=== PATIENT | female | born 1950 | race Caucasian/White ===

== ENCOUNTER 2018-08-08 11:44 | Inpatient (IN) ==
--- NOTE | 2018-08-08 11:51 | Emergency Department Note ---
Disposition Clinical Impression: C. difficile colitis Disposition: Admitted As Inpatient Condition: Fair Time of Disposition: 13:34 Abdominal Pain HPI - General Chief Complaint: ED Abdominal Pain Stated Complaint: abdominal pain Time Seen by Provider: 08/08/18 11:50 Source: patient Mode of arrival: ambulatory Limitations: no limitations Nursing Notes Reviewed: Yes Vital Signs Reviewed: Yes - History of Present Illness HPI Narrative: Patient is a 68-year-old female who is presenting for continued abdominal pain and diarrhea. Patient was diagnosed with C. 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 Once diagnosed, her xifaxan was increased. She has had no relief of her symptoms. Per family, she has been having diarrhea for the past 6 days, multiple episodes daily, described to be her liquid at least 10-15 episodes per day. She denies any nausea, vomiting, fevers or chills. She has been unable to eat or drink secondary to the diarrhea and anorexia. Per family, she seems slightly fatigued but otherwise is at normal mental status baseline. Patient denies any focal weakness, numbness or tingling. No recent fall or trauma. - Related Data Home Medications Medication Instructions Recorded Confirmed Cevimeline HCl [Evoxac] 30 mg PO TID 01/02/15 08/08/18 Doxepin HCl 30 mg PO HS 01/02/15 08/08/18 Furosemide [Lasix] 20 mg PO DAILY 01/02/15 08/08/18 Multivit-Min/FA/Lycopen/Lutein 1 tab PO DAILY 01/02/15 01/02/15 [Centrum Silver Tablet] Sildenafil Citrate [Revatio] 20 mg PO 3-4XD PRN 01/02/15 08/08/18 Aspirin [Lo-Dose Aspirin EC] 81 mg PO 1200 08/08/18 08/08/18 Atorvastatin [Lipitor] 40 mg PO 1200 08/08/18 08/08/18 Calcium Carbonate/Vitamin D3 1 tab PO BID 08/08/18 08/08/18 [Calcium 500 mg-Vit D3 600 Unit] Ergocalciferol (VITAMIN D2) 50,000 units PO MO 08/08/18 08/08/18 [Vitamin D2] Ferrous Sulfate 325 mg PO 1200 08/08/18 08/08/18 Lactulose [Enulose] 10 gm PO DAILY MDD 40GM 08/08/18 08/08/18 Metoprolol Succinate [Toprol Xl] 50 mg PO BID 08/08/18 08/08/18 Midodrine [ProAmatine] 5 mg PO TID 08/08/18 08/08/18 Pantoprazole Sodium [Protonix] 40 mg PO QPM 08/08/18 08/08/18 Rifaximin [Xifaxan] 550 mg PO BID 08/08/18 08/08/18 Spironolactone [Aldactone] 25 mg PO 1200 08/08/18 08/08/18 Tramadol HCl [Ultram] 50 mg PO Q8H PRN 08/08/18 08/08/18 Allergies Allergy/AdvReac Type Severity Reaction Status Date / Time codeine Allergy Mild Nausea Verified 08/08/18 16:46 All systems ED: reviewed and negative except as stated. Review of Systems: As Per HPI Constitutional: Denies: fever, chills ENT ED: Denies: congestion Cardiovascular: Denies: chest pain, palpitations, dyspnea on exertion, edema Respiratory: Denies: cough, dyspnea, wheezes Gastrointestinal: Reports: abdominal pain, diarrhea. Denies: nausea, vomiting, hematemesis, melena, hematochezia Genitourinary: Denies: urgency Musculoskeletal: Denies: back pain Integumentary: Denies: rash Neurological: Denies: headache, weakness, confusion Endocrine: Reports: fatigue Abdominal Pain PMH - Past Medical History Medical history: Reports: cirrhosis, coronary artery disease, GERD, hyperlipidemia, myocardial infarction, other Female Surgical History: Reports: angioplasty/stent, cholecystectomy, hysterectomy, other Psychiatric history: Reports: no psych history - Social History Smoking status: Never smoker Alcohol use: Reports: none Drug use: Reports: none Physical Exam - General Limitations: no limitations General appearance: alert, in no apparent distress - Head Head exam: atraumatic, normocephalic, normal inspection - Eye Eye exam: Present: normal appearance, PERRL, EOMI - ENT ENT exam: mucous membranes dry - Neck Neck exam: Present: normal inspection, full ROM, trachea midline - Chest Chest inspection: Present: normal inspection, symmetric chest wall rise - Respiratory Respiratory exam: Present: normal lung sounds bilaterally - Cardiovascular Cardiovascular exam: Present: regular rate, normal rhythm, normal heart sounds - Abdominal Exam Abdominal exam: Present: soft, tenderness (Patient with diffuse abdominal tenderness, without guarding or rebound, non-peritoneal, mild distention) - Extremities Exam Extremities exam: Present: normal inspection, full ROM. Absent: tenderness, pedal edema - Expanded Lower Extremity Exam Neurovascular/Tendon exam: Absent: motor deficit, sensory deficit, tendon def icit - Neurological Exam Neurological exam: Present: alert, oriented X3 - Psychiatric Psychiatric exam: Present: normal affect, normal mood - Skin Skin exam: Present: warm, dry, intact, normal color Course Vital Signs Temperature 96.6 F L 08/08/18 11:48 Pulse Rate 86 08/08/18 11:48 Respiratory Rate 18 08/08/18 11:48 Blood Pressure 83/60 08/08/18 11:48 O2 Sat by Pulse Oximetry 96 08/08/18 11:48 Temperature 96.6 F L 08/08/18 11:48 Pulse Rate 72 08/08/18 16:28 Respiratory Rate 17 08/08/18 16:28 Blood Pressure 88/55 08/08/18 16:28 O2 Sat by Pulse Oximetry 100 08/08/18 16:28 Oxygen Delivery Oxygen Delivery Room Air Abdominal Pain - MDM Narrative Medical decision making narrative: Patient is a 68-year-old female who is presenting with known diagnosis of Clostridium difficile despite attempts of increase in Xifaxan treatment by primary care provider. Patient has known history of crest syndrome with secondary STEWART, chronic kidney disease, hypertension, hyperlipidemia. Patient has had ongoing symptoms for the past 5-6 days with increased fatigue and dehydration. Patient is been unable to keep anything down or eat anything secondary to nausea with continued 10-15 episodes of diarrhea per day. On arrival, patient is afebrile, regular rate and rhythm, she is hypotensive but per family this is slightly lower than baseline of 90/60. Given concern for known C. difficile, blood cultures, lactic acid, CBC, BMP, hepatic, lipase, CT of the abdomen and pelvis were performed to rule out toxic megacolon or wo rsening colitis. Patient was given a total of 1 L normal saline initially, however was given a total of 2 more liters following blood pressure that remained hypotensive. She was fluid responsive. Patient remained afebrile and in no acute distress while here in the ER. CBC was reveals significant leukocytosis in the 40s, suspect this is secondary to patient's C. difficile. Patient with known chronic kidney disease, slight worsening, patient with hyponatremia, suspect this is all secondary to dehydration. Patient lactic acid is elevated, with metabolic acidosis. I did speak with the pharmacist regarding the dictation therapy, we will initiate vancomycin 125 orally. Patient is tolerating by mouth appropriately. Sutured abdomen and pelvis does show pancolitis without signs of toxic me gacolon. There was a this is appropriate management at this time. Patient is remained stable while here in the ER, she will be admitted for further evaluation and treatment. Patient and family agree with this disposition. - Medical Records Medical records reviewed: Yes I reviewed the patient's medical records. - Lab Data Lab results reviewed: Yes I reviewed the patient's lab results. Result diagrams: 08/08/18 12:29 08/08/18 12:29 Lab Results 08/08/18 08/08/18 08/08/18 Range/Units 12:29 12:29 12:29 WBC 43.0 H* (4.3-11.1) K/mcL RBC 4.22 (3.82-4.97) M/mcL Hgb 12.8 (11.5-15.4) g/dL Hct 39.4 (35.3-44.9) % MCV 93.4 (83.0-100.0) fL MCH 30.3 (28.0-33.3) pg MCHC 32.5 (31.6-35.5) g/dL RDW 15.7 H (11.5-14.5) % Plt Count 165 (140-400) K/mcL MPV 10.7 (9.4-12.4) fL Seg Neutrophils % 82.0 % Band Neutrophils % 12.0 H (0-4) % Lymphocytes % Test Not Performed Monocytes % 6.0 % Neutrophils # 40.4 H (1.6-8.9) K/mcL Lymphocytes # INTERFACE DEVELOPER Monocytes # 2.6 H (0.0-1.3) K/mcL Toxic Granulation Present A (Not Present) Dohle Bodies Present A (Not Present) Platelet Estimate Normal (Normal) Polychromasia 1+ A (Not Present) Poikilocytosis 1+ A (Not Present) Keenan Cells 1+ A (Not Present) PT 14.3 H (9.4-12.1) Seconds INR 1.3 APTT 27.7 (26.0-36.0) Seconds Sodium 122 L (136-145) mEq/L Potassium 4.4 (3.5-5.1) mEq/L Chloride 92 L (98-107) mEq/L Carbon Dioxide 15 L (23-29) mEq/L BUN 71 H (8-23) mg/dL Creatinine 2.34 H (0.60-1.20) mg/dL Est GFR ( Amer) 25 L (> 60) Est GFR (Non-Af Amer) 21 L (> 60) BUN/Creatinine Ratio 30 H (6-26) Glucose 92 (70-105) mg/dL Calculated Osmolality 274 L (280-300) Lactic Acid (0.5-2.2) mmol/L Calcium 8.2 L (8.6-10.3) mg/dL Total Bilirubin 1.3 H (0.3-1.0) mg/dL Direct Bilirubin 0.5 H (0.0-0.2) mg/dL Indirect Bilirubin 0.8 (0.0-1.2) mg/dL AST 14 (13-39) Units/L ALT 5 L (7-52) Units/L Alkaline Phosphatase 149 H (34-104) Units/L Serum Total Protein 5.6 L (6.4-8.9) g/dL Albumin 2.5 L (3.5-5.7) g/dL Globulin 3.1 (2.4-3.5) g/dL Albumin/Globulin Ratio 0.8 L (1.1-2.2) Lipase 10 L (11-82) Units/L Urine Color (Yellow) Urine Clarity (Clear) Urine pH (5.0-8.0) pH Units Ur Specific [place] (1.010-1.025) Urine Protein (Neg-Trace) mg/dL Urine Glucose (UA) (Normal) mg/dL Urine Ketones (Negative) mg/dL Urine Blood (Negative) Urine Nitrite (Negative) Urine Bilirubin (Negative) Urine Urobilinogen (Normal) mg/dL Ur Leukocyte Esterase (Negative) Urine Microscopic RBC (0-3) per hpf Urine Microscopic WBC (0-3) per hpf Ur Squamous Epith Cells (None-Few) per lpf Urine Bacteria (None-Few) per hpf Hyaline Casts (None-Few) per lpf Ur Culture Indicated? (NO) Specimen Rejected 08/08/18 08/08/18 08/08/18 Range/Units 13:38 13:44 13:51 WBC (4.3-11.1) K/mcL RBC (3.82-4.97) M/mcL Hgb (11.5-15.4) g/dL Hct (35.3-44.9) % MCV (83.0-100.0) fL MCH (28.0-33.3) pg MCHC (31.6-35.5) g/dL RDW (11.5-14.5) % Plt Count (140-400) K/mcL MPV (9.4-12.4) fL Seg Neutrophils % % Band Neutrophils % (0-4) % Lymphocytes % Monocytes % % Neutrophils # (1.6-8.9) K/mcL Lymphocytes # Monocytes # (0.0-1.3) K/mcL Toxic Granulation (Not Present) Dohle Bodies (Not Present) Platelet Estimate (Normal) Polychromasia (Not Present) Poikilocytosis (Not Present) Keenan Cells (Not Present) PT (9.4-12.1) Seconds INR APTT (26.0-36.0) Seconds Sodium (136-145) mEq/L Potassium (3.5-5.1) mEq/L Chloride (98-107) mEq/L Carbon Dioxide (23-29) mEq/L BUN (8-23) mg/dL Creatinine (0.60-1.20) mg/dL Est GFR ( Amer) (> 60) Est GFR (Non-Af Amer) (> 60) BUN/Creatinine Ratio (6-26) Glucose (70-105) mg/dL Calculated Osmolality (280-300) Lactic Acid 3.1 H (0.5-2.2) mmol/L Calcium (8.6-10.3) mg/dL Total Bilirubin (0.3-1.0) mg/dL Direct Bilirubin (0.0-0.2) mg/dL Indirect Bilirubin (0.0-1.2) mg/dL AST (13-39) Units/L ALT (7-52) Units/L Alkaline Phosphatase (34-104) Units/L Serum Total Protein (6.4-8.9) g/dL Albumin (3.5-5.7) g/dL Globulin (2.4-3.5) g/dL Albumin/Globulin Ratio (1.1-2.2) Lipase (11-82) Units/L Urine Color Dark Yellow (Yellow) Urine Clarity Clear (Clear) Urine pH 5.5 (5.0-8.0) pH Units Ur Specific [place] 1.020 (1.010-1.025) Urine Protein Negative (Neg-Trace) mg/dL Urine Glucose (UA) Normal (Normal) mg/dL Urine Ketones Negative (Negative) mg/dL Urine Blood Negative (Negative) Urine Nitrite Negative (Negative) Urine Bilirubin Small H (Negative) Urine Urobilinogen Normal (Normal) mg/dL Ur Leukocyte Esterase Trace H (Negative) Urine Microscopic RBC 0-3 (0-3) per hpf Urine Microscopic WBC 0-3 (0-3) per hpf Ur Squamous Epith Cells Many H (None-Few) per lpf Urine Bacteria None Seen (None-Few) per hpf Hyaline Casts Many H (None-Few) per lpf Ur Culture Indicated? YES A (NO) Specimen Rejected Hemolyzed - Radiology Data Radiology results reviewed: Yes I reviewed the patient's radiology results. Abdomen/Pelvis CT 08/08/18 12:03 IMPRESSION: 1. Nonspecific pancolitis 2. Cirrhosis with splenomegaly, ascites, and collateral vessels in the upper abdomen D/ / Vincent Henderson MD / Vincent Henderson MD Interpreting Provider: Vincent Henderson MD - EKG Data EKG attestation: Yes I reviewed and interpreted this EKG. EKG results narrative: EKG obtained at 1202 with ventricular rate of 87, regular rhythm, left axis deviation with left atrial enlargement, prolonged QTC at 536 which is unchanged from prior, no ST segment elevation or depression, there is diffuse T-wave inversion.
[2018-08-08] MEDS ORDERED: Ondansetron 4 MG/2 ML VIAL IVP ONE (12:02)
[2018-08-08] MEDS ORDERED: 0.9 % Sodium Chloride 1,000 ML IVC ONE ×3 (12:02→14:30)
[2018-08-08 12:45] LABS: Hemoglobin 12.8 g/dL (11.5-15.4)
[2018-08-08 12:47] LABS: Hematocrit 39.4 % (35.3-44.9); Mean Corpuscular HGB Conc 32.5 g/dL (31.6-35.5); Mean Corpuscular Hemoglobin 30.3 pg (28.0-33.3); Mean Corpuscular Volume 93.4 fL (83.0-100.0); Mean Platelet Volume 10.7 fL (9.4-12.4); Platelet Count 165 K/mcL (140-400); Red Blood Count 4.22 M/mcL (3.82-4.97); Red Cell Distribution Width 15.7 % (11.5-14.5)
[2018-08-08 13:03] LABS: INR 1.3; Prothrombin Time 14.3 Seconds (9.4-12.1)
[2018-08-08 13:06] LABS: Activated Partial Thrombo Time 27.7 Seconds (26.0-36.0)
[2018-08-08] MEDS ORDERED: MetroNIDAZOLE 500 MG/100 ML 500 MG/100 ML BAG IVPB ONE (13:10)
[2018-08-08 13:33] LABS: Monocytes # 2.6 K/mcL (0.0-1.3); Neutrophils # 40.4 K/mcL (1.6-8.9)
[2018-08-08 13:35] LABS: Dohle Bodies Present (Not Present); Poikilocytosis 1+ (Not Present); Toxic Granulation Present (Not Present)
[2018-08-08 13:36] LABS: Burr Cells 1+ (Not Present)
[2018-08-08 13:37] LABS: Platelet Estimate Normal (Normal); Polychromasia 1+ (Not Present)
[2018-08-08 13:43] LABS: Albumin 2.5 g/dL (3.5-5.7); Albumin/Globulin Ratio 0.8 (1.1-2.2); Bilirubin,Direct 0.5 mg/dL (0.0-0.2); Bilirubin,Indirect 0.8 mg/dL (0.0-1.2); Bilirubin,Total 1.3 mg/dL (0.3-1.0); Calcium 8.2 mg/dL (8.6-10.3); Globulin 3.1 g/dL (2.4-3.5); Potassium 4.4 mEq/L (3.5-5.1); Total Protein 5.6 g/dL (6.4-8.9)
--- NOTE | 2018-08-08 13:46 | Emergency Department Note ---
Disposition Clinical Impression: C. difficile colitis Disposition: Admitted As Inpatient Condition: Fair Referrals: Yonathan James Jr, MD [Primary Care Provider] - Forms: ED Satisfaction Letter, Work/School Release Time of Disposition: 13:46 General Adult HPI - General Chief complaint: ED Abdominal Pain Stated complaint: abdominal pain Time Seen by Provider: 08/08/18 11:50 Source: patient Mode of arrival: ambulatory Limitations: no limitations - History of Present Illness Pain Scale: 10 - Related Data Home Medications Medication Instructions Recorded Confirmed Aspirin Enteric Coated [Aspirin EC] 81 mg PO DAILY 01/02/15 08/08/18 Calcium Citrate/Vitamin D3 [Sm 1 each PO DAILY 01/02/15 08/08/18 Calcium Citrate-Vit D3 Tab] Cevimeline HCl [Evoxac] 30 mg PO TID 01/02/15 08/08/18 Diltiazem CD (24hr) [Cardizem CD] 240 mg PO DAILY 01/02/15 01/02/15 Doxepin HCl 30 mg PO HS 01/02/15 08/08/18 Ferrous Sulfate 325 mg PO TIDWM 01/02/15 08/08/18 Furosemide [Lasix] 20 mg PO DAILY 01/02/15 08/08/18 Lansoprazole [Prevacid] 30 mg PO BIDAC 01/02/15 01/02/15 Metoprolol XL (24 HR) Succ [Toprol 1 tab PO DAILY 01/02/15 08/08/18 XL] Multivit-Min/FA/Lycopen/Lutein 1 tab PO DAILY 01/02/15 01/02/15 [Centrum Silver Tablet] Sildenafil Citrate [Revatio] 20 mg PO 3-4XD PRN 01/02/15 08/08/18 Spironolactone [Aldactone] 50 mg PO DAILY 01/02/15 08/08/18 Sucralfate [Carafate] 1 gm PO 0730,1630 01/02/15 01/02/15 Previous Rx's Medication Instructions Recorded Acyclovir [Zovirax] 400 mg PO Q4HR #100 tablet 03/21/15 traMADol [Ultram] 50 mg PO TID #14 tablet 03/21/15 Allergies Allergy/AdvReac Type Severity Reaction Status Date / Time codeine Allergy Mild Nausea Verified 01/02/15 01:35 Constitutional: Denies: fever, chills ENT ED: Denies: congestion Cardiovascular: Denies: chest pain, palpitations, dyspnea on exertion, edema Respiratory: Denies: cough, dyspnea, wheezes Gastrointestinal: Reports: abdominal pain, diarrhea. Denies: nausea, vomiting, hematemesis, melena, hematochezia Genitourinary: Denies: urgency Musculoskeletal: Denies: back pain Integumentary: Denies: rash Neurological: Denies: headache, weakness, confusion Endocrine: Reports: fatigue Past Medical History - Past Medical History Medical history: Reports: cirrhosis, coronary artery disease, GERD, hyperlipidemia, myocardial infarction, other Surgical history: Reports: angioplasty/stent, cholecystectomy, hysterectomy, other Psychiatric history: Reports: no psych history - Social History Smoking Status: Never smoker Smokeless Tobacco Status: No Alcohol use: Reports: none Drug use: Reports: none Physical Exam - General Limitations: no limitations General appearance: alert, in no apparent distress Course - Consultations Consultation #1: discussed case with Dr. Linder and she accepts patient to her service. She woul dlike 1/2NS with 75meq HCO3 at 125 ml/hr. Time: 15:21 Vital Signs Temperature 96.6 F L 08/08/18 11:48 Pulse Rate 86 08/08/18 11:48 Respiratory Rate 18 08/08/18 11:48 Blood Pressure 83/60 08/08/18 11:48 O2 Sat by Pulse Oximetry 96 08/08/18 11:48 Temperature 96.6 F L 08/08/18 11:48 Pulse Rate 71 08/08/18 14:54 Respiratory Rate 23 08/08/18 14:54 Blood Pressure 98/56 08/08/18 14:54 O2 Sat by Pulse Oximetry 100 08/08/18 14:54 Oxygen Delivery Oxygen Delivery Room Air Medical Decision Making - Lab Data Result diagrams: 08/08/18 12:29 08/08/18 12:29 Lab Results 08/08/18 08/08/18 08/08/18 Range/Units 12:29 12:29 12:29 WBC 43.0 H* (4.3-11.1) K/mcL RBC 4.22 (3.82-4.97) M/mcL Hgb 12.8 (11.5-15.4) g/dL Hct 39.4 (35.3-44.9) % MCV 93.4 (83.0-100.0) fL MCH 30.3 (28.0-33.3) pg MCHC 32.5 (31.6-35.5) g/dL RDW 15.7 H (11.5-14.5) % Plt Count 165 (140-400) K/mcL MPV 10.7 (9.4-12.4) fL Seg Neutrophils % 82.0 % Band Neutrophils % 12.0 H (0-4) % Lymphocytes % Test Not Performed Monocytes % 6.0 % Neutrophils # 40.4 H (1.6-8.9) K/mcL Lymphocytes # PRESCHOOL SPECIAL EDUCATION TEACHER Monocytes # 2.6 H (0.0-1.3) K/mcL Toxic Granulation Present A (Not Present) Dohle Bodies Present A (Not Present) Platelet Estimate Normal (Normal) Polychromasia 1+ A (Not Present) Poikilocytosis 1+ A (Not Present) Keenan Cells 1+ A (Not Present) PT 14.3 H (9.4-12.1) Seconds INR 1.3 APTT 27.7 (26.0-36.0) Seconds Sodium 122 L (136-145) mEq/L Potassium 4.4 (3.5-5.1) mEq/L Chloride 92 L (98-107) mEq/L Carbon Dioxide 15 L (23-29) mEq/L BUN 71 H (8-23) mg/dL Creatinine 2.34 H (0.60-1.20) mg/dL Est GFR ( Amer) 25 L (> 60) Est GFR (Non-Af Amer) 21 L (> 60) BUN/Creatinine Ratio 30 H (6-26) Glucose 92 (70-105) mg/dL Calculated Osmolality 274 L (280-300) Lactic Acid (0.5-2.2) mmol/L Calcium 8.2 L (8.6-10.3) mg/dL Total Bilirubin 1.3 H (0.3-1.0) mg/dL Direct Bilirubin 0.5 H (0.0-0.2) mg/dL Indirect Bilirubin 0.8 (0.0-1.2) mg/dL AST 14 (13-39) Units/L ALT 5 L (7-52) Units/L Alkaline Phosphatase 149 H (34-104) Units/L Serum Total Protein 5.6 L (6.4-8.9) g/dL Albumin 2.5 L (3.5-5.7) g/dL Globulin 3.1 (2.4-3.5) g/dL Albumin/Globulin Ratio 0.8 L (1.1-2.2) Lipase 10 L (11-82) Units/L Urine Color (Yellow) Urine Clarity (Clear) Urine pH (5.0-8.0) pH Units Ur Specific [place] (1.010-1.025) Urine Protein (Neg-Trace) mg/dL Urine Glucose (UA) (Normal) mg/dL Urine Ketones (Negative) mg/dL Urine Blood (Negative) Urine Nitrite (Negative) Urine Bilirubin (Negative) Urine Urobilinogen (Normal) mg/dL Ur Leukocyte Esterase (Negative) Urine Microscopic RBC (0-3) per hpf Urine Microscopic WBC (0-3) per hpf Ur Squamous Epith Cells (None-Few) per lpf Urine Bacteria (None-Few) per hpf Hyaline Casts (None-Few) per lpf Ur Culture Indicated? (NO) Specimen Rejected 08/08/18 08/08/18 08/08/18 Range/Units 13:38 13:44 13:51 WBC (4.3-11.1) K/mcL RBC (3.82-4.97) M/mcL Hgb (11.5-15.4) g/dL Hct (35.3-44.9) % MCV (83.0-100.0) fL MCH (28.0-33.3) pg MCHC (31.6-35.5) g/dL RDW (11.5-14.5) % Plt Count (140-400) K/mcL MPV (9.4-12.4) fL Seg Neutrophils % % Band Neutrophils % (0-4) % Lymphocytes % Monocytes % % Neutrophils # (1.6-8.9) K/mcL Lymphocytes # Monocytes # (0.0-1.3) K/mcL Toxic Granulation (Not Present) Dohle Bodies (Not Present) Platelet Estimate (Normal) Polychromasia (Not Present) Poikilocytosis (Not Present) Keenan Cells (Not Present) PT (9.4-12.1) Seconds INR APTT (26.0-36.0) Seconds Sodium (136-145) mEq/L Potassium (3.5-5.1) mEq/L Chloride (98-107) mEq/L Carbon Dioxide (23-29) mEq/L BUN (8-23) mg/dL Creatinine (0.60-1.20) mg/dL Est GFR ( Amer) (> 60) Est GFR (Non-Af Amer) (> 60) BUN/Creatinine Ratio (6-26) Glucose (70-105) mg/dL Calculated Osmolality (280-300) Lactic Acid 3.1 H (0.5-2.2) mmol/L Calcium (8.6-10.3) mg/dL Total Bilirubin (0.3-1.0) mg/dL Direct Bilirubin (0.0-0.2) mg/dL Indirect Bilirubin (0.0-1.2) mg/dL AST (13-39) Units/L ALT (7-52) Units/L Alkaline Phosphatase (34-104) Units/L Serum Total Protein (6.4-8.9) g/dL Albumin (3.5-5.7) g/dL Globulin (2.4-3.5) g/dL Albumin/Globulin Ratio (1.1-2.2) Lipase (11-82) Units/L Urine Color Dark Yellow (Yellow) Urine Clarity Clear (Clear) Urine pH 5.5 (5.0-8.0) pH Units Ur Specific [place] 1.020 (1.010-1.025) Urine Protein Negative (Neg-Trace) mg/dL Urine Glucose (UA) Normal (Normal) mg/dL Urine Ketones Negative (Negative) mg/dL Urine Blood Negative (Negative) Urine Nitrite Negative (Negative) Urine Bilirubin Small H (Negative) Urine Urobilinogen Normal (Normal) mg/dL Ur Leukocyte Esterase Trace H (Negative) Urine Microscopic RBC 0-3 (0-3) per hpf Urine Microscopic WBC 0-3 (0-3) per hpf Ur Squamous Epith Cells Many H (None-Few) per lpf Urine Bacteria None Seen (None-Few) per hpf Hyaline Casts Many H (None-Few) per lpf Ur Culture Indicated? YES A (NO) Specimen Rejected Hemolyzed Attestation Statement - Attestation Attestation: I reviewed the residents documentation and agree with the residents assessment and plan of care. I have personally had face to face time with the patient. (Brief History, Brief Exam, and MDM) I personally supervised and was present for the gill/critical portions of the following procedures completed by the resident: EKG 68 richard ibarra female presnets ot the ED with complaints of abdominal pain and was most recently diagnosed with C.diff and has pancolitis on CT scan with WBC of 43. Contact precautions have been started. Discussed with pharmacy and we will start PO vanco, and hold off on IV flagyl at this time. WE will admit to medicine. She is hypotensive and we will treat with IVF, her baseline is 90/60s typically and this is mildly below her baseline and she is otherwise alert and oriented and currently has a blood pressure of 105/61, repsonding to IVf.
[2018-08-08] MEDS: Vancomycin Oral Soln 125 MG/2.5 ML UDC PO SCH ×3 (13:57→20:26)
[2018-08-08 14:10] LABS: Bilirubin,Urine Small (Negative); Blood,Urine Negative (Negative); Clarity,Urine Clear (Clear); Color,Urine Dark Yellow (Yellow); Glucose,Urine (UA) Normal (Normal); Ketones,Urine Negative (Negative); Leukocyte Esterase,Urine Trace (Negative); Nitrite,Urine Negative (Negative); PH,Urine 5.5 pH Units (5.0-8.0); Protein,Urine Negative (Neg-Trace); Urobilinogen,Urine Normal (Normal)
[2018-08-08 14:15] LABS: Bacteria,Urine None Seen per hpf (None-Few); Squamous Epithelial Cell,Urine Many per lpf (None-Few); WBC,Urine 0-3 per hpf (0-3)
[2018-08-08 14:32] LABS: Hyaline Casts,Urine Many per lpf (None-Few)
[2018-08-08 14:33] LABS: RBC,Urine 0-3 per hpf (0-3)
[2018-08-08] MEDS ORDERED: Sodium Bicarbonate 75 MEQ in 0.45 % Sodium Chloride 1,000 ML IVC SCH (15:30)
[2018-08-08] MEDS ORDERED: Naloxone 0.4 MG/ML INJ IVP PRN (15:30)
[2018-08-08] MEDS ORDERED: Ondansetron 4 MG/2 ML VIAL IVP PRN (15:30)
[2018-08-08] MEDS ORDERED: 0.9 % Sodium Chloride 500 ML IVC PRN (15:35)
--- NOTE | 2018-08-08 16:00 | Internal Med History&Physical ---
Date of Encounter: 08/08/18 Time of Encounter: 15:30 Internal Medicine - H&P: HPI Chief complaint: abdominal pain, diarrhea Admitted From: Home History of present illness: Ms. Tavares is a 68 year old female with history of Crest syndrome, cirrhosis, CAD s/p PCI, CKD, who presented to the ED with persistent diarrhea and abdominal pain. She states that she was diagnosed with C. diff early last week and, since she was on rifaximin, the dose was increased by her PCP. Unfortunately, her diarrhea and abdominal pain persisted hence she decided to come to the ED for further evaluation. Described as generalized, crampy pain, no aggravating/relieving factors, non radiating, associated with profuse diarrhea and intermittent nausea. Denies any melena, hematochezia, bright red blood per rectum. No fever/chills, dysuria, or urinary frequency. She denies any chest pain, shortness of breath, orthopnea, PND, or leg swelling. In the ED, she was noted to be hypotensive at 83/60, afebrile, and saturating well on room air. Labwork showed leukocytosis of 43 with 12% band, sodium of 122, creatinine 2.34 (baseline 1.5-6), and bicarb of 15. Lactic acid was also elevated at 3.1. CT Abdo pelvis showed pancolitis and cirrhosis with splenomegaly and ascites. She was given 2 L of IV fluid, started on PO vancomycin, and admitted for further management. Past Med Surg Social Fam HX - Past Medical History Medical history: cirrhosis, coronary artery disease, GERD, hyperlipidemia, myoca rdial infarction, renal disease, other Additional medical history: Crest syndrome Psychiatric history: no psych history - Past Surgical History Surgical History: angioplasty/stent, cholecystectomy, hysterectomy, other Additional surgical history: Heart Stents x 6 - Social History Smoking Status: Never smoker Smokeless Tobacco Status: No Alcohol use: none Drug use: none - Family History Father Hx Family Cardiac Disorders: Yes Internal Medicine - H&P: Meds Aspirin Enteric Coated [Aspirin EC] 81 mg PO DAILY 01/02/15 [History] Calcium Citrate/Vitamin D3 [Sm Calcium Citrate-Vit D3 Tab] 1 each PO DAILY 01/02/15 [History] Cevimeline HCl [Evoxac] 30 mg PO TID 01/02/15 [History] Diltiazem CD (24hr) [Cardizem CD] 240 mg PO DAILY 01/02/15 [History] Doxepin HCl 30 mg PO HS 01/02/15 [History] Ferrous Sulfate 325 mg PO TIDWM 01/02/15 [History] Furosemide [Lasix] 20 mg PO DAILY 01/02/15 [History] Lansoprazole [Prevacid] 30 mg PO BIDAC 01/02/15 [History] Metoprolol XL (24 HR) Succ [Toprol XL] 1 tab PO DAILY 01/02/15 [History] Multivit-Min/FA/Lycopen/Lutein [Centrum Silver Tablet] 1 tab PO DAILY 01/02/15 [History] Sildenafil Citrate [Revatio] 20 mg PO 3-4XD PRN 01/02/15 [History] Spironolactone [Aldactone] 50 mg PO DAILY 01/02/15 [History] Sucralfate [Carafate] 1 gm PO 0730,1630 01/02/15 [History] Acyclovir [Zovirax] 400 mg PO Q4HR #100 tablet 03/21/15 [Rx] traMADol [Ultram] 50 mg PO TID #14 tablet 03/21/15 [Rx] Allergy/AdvReac Type Severity Reaction Status Date / Time codeine Allergy Mild Nausea Verified 01/02/15 01:35 All Systems PM: A 10-system review of systems was performed and is negative for pertinent findings except as documented above in the HPI. - Constitutional Vitals: Temp Pulse Resp BP Pulse Ox 96.6 F L 77 23 92/58 100 08/08/18 11:48 08/08/18 15:24 08/08/18 14:54 08/08/18 15:24 08/08/18 15:24 Exam: General: Alert and oriented, not in acute distress. HEENT:EOMI, pupils equal, round and reactive. Cardiovascular:Normal S1 & S2, No JVD. Pulse regular. Lungs: clear to auscultation, no wheezes/rales Abdomen:Soft, mildly distended and has generalized tenderness in all quadrants without rebound/guarding/rigidity Extremities:No joint swelling noted Neurological:Normal cognition and motor skills. Non-focal. No asterixis Skin:Normal color, no rash, no lesions. Pulses:Carotid and radial pulses normal +2. Rest of the physical exam is non contributory Internal Med - H&P Results - Labs CBC & Chem 7: 08/08/18 12:29 08/08/18 12:29 Labs: Short CBC 08/08/18 Range/Units 12:29 WBC 43.0 H* (4.3-11.1) K/mcL Hgb 12.8 (11.5-15.4) g/dL Hct 39.4 (35.3-44.9) % Plt Count 165 (140-400) K/mcL Neutrophils # 40.4 H (1.6-8.9) K/mcL BMP 08/08/18 12:29 Sodium 122 L Potassium 4.4 Chloride 92 L Carbon Dioxide 15 L BUN 71 H Creatinine 2.34 H Glucose 92 Calcium 8.2 L Liver Function 08/08/18 Range/Units 12:29 Total Bilirubin 1.3 H (0.3-1.0) mg/dL Direct Bilirubin 0.5 H (0.0-0.2) mg/dL AST 14 (13-39) Units/L ALT 5 L (7-52) Units/L Alkaline Phosphatase 149 H (34-104) Units/L Albumin 2.5 L (3.5-5.7) g/dL Urine 08/08/18 Range/Units 13:44 Urine Color Dark Yellow (Yellow) Urine Clarity Clear (Clear) Urine pH 5.5 (5.0-8.0) pH Units Ur Specific [place] 1.020 (1.010-1.025) Urine Protein Negative (Neg-Trace) mg/dL Urine Glucose (UA) Normal (Normal) mg/dL - Impressions ITS Impressions Abdomen/Pelvis CT 08/08/18 12:03 IMPRESSION: 1. Nonspecific pancolitis 2. Cirrhosis with splenomegaly, ascites, and collateral vessels in the upper abdomen D/ / Vincent Henderson MD / Vincent Henderson MD Interpreting Provider: Vincent Henderson MD - Assessment and Plan (1) Severe sepsis Current Visit: Yes Status: Acute Assessment and plan: Was diagnosed with C. diff 1 week ago but presented with persistent diarrhea and abdominal pain with CT scan showing pancolitis WBC 43, band 12%, lactic acid 3, and associated with AoCKD hypotensive on presentation that appears to be responding to IVF but dropped to 80/50 again. Pt is noted to be on midodrine for chronic hypotension however continue fluid boluses and mIVF with bicarb given AoCKD and metabolic acidosis continue PO Vanc follow up on blood cultures will consult surgery for possibility of toxic megacolon (2) C. difficile colitis Current Visit: Yes Status: Acute Assessment and plan: start PO Vanc (3) Acute on chronic kidney failure Current Visit: Yes Status: Acute Assessment and plan: likely pre-renal in the setting of C. diff colitis +/- ATN from sepsis IVF as above lasix on hold If cr worsens, will consult nephrology Qualifiers: Acute renal failure type: unspecified Chronic kidney disease stage: stage 3 (moderate) Qualified Code(s): N17.9 - Acute kidney failure, unspecified; N18.3 - Chronic kidney disease, stage 3 (moderate) (4) Hyponatremia Current Visit: Yes Status: Acute Assessment and plan: likely due to hypovolemic hyponatremia repeat BMP after fluid boluses and mIVF (5) Cirrhosis Current Visit: No Status: Chronic Assessment and plan: MELD Na 27, CTP B8 associated with splenomegaly, ascites, and reported esophageal varices will hold lactulose, lasix, and aldactone poor prognosis overall but wants to remain full code after discussing with pt and pt's Qualifiers: Hepatic cirrhosis type: unspecified hepatic cirrhosis Ascites presence: with ascites Qualified Code(s): K74.60 - Unspecified cirrhosis of liver; R18.8 - Other ascites (6) CREST (calcinosis, Raynaud's phenomenon, esophageal dysfunction, sclerodactyly, telangiectasia) Current Visit: No Status: Chronic Assessment and plan: continue Cevimeline for Raynaud's (7) CAD (coronary artery disease) Current Visit: No Status: Chronic Assessment and plan: resume home meds hold bb due to hypotension Qualifiers: Coronary Disease-Associated Artery/Lesion type: [place] artery [place] vs. transplanted heart: [place] heart Associated angina: without angina Qualified Code(s): I25.10 - Atherosclerotic heart disease of [place] coronary artery without angina pectoris (8) DVT prophylaxis Current Visit: No Status: Acute Assessment and plan: SQ hep but would watch for Plt count given her cirrohsis - Time Spent With Patient Total time spent is greater than 50% in coordination of care (as documented) at patient's floor/unit and/or counseling patient: Greater than 35 minutes
[2018-08-08] MEDS ORDERED: Acetaminophen 325 MG TABLET PO PRN (16:19)
[2018-08-08 17:02] LABS: Calcium 7.1 mg/dL (8.6-10.3)
[2018-08-08] MEDS: *HR* Heparin 5,000 UNIT/ML VIAL SQ SCH (19:04)
[2018-08-08 19:58] LABS: Calcium 6.9 mg/dL (8.6-10.3); Potassium 3.6 mEq/L (3.5-5.1)
--- NOTE | 2018-08-08 20:02 | AcuteCare Surgery Consult Note ---
Date of Encounter: 08/08/18 Time of Encounter: 19:00 Assessment and Plan (1) C. difficile colitis Current Visit: Yes Status: Acute Bowel rest and PO vancomycin. Pt has a severely elevated WBC however, she is not toxic. (2) Ascites Current Visit: No Status: Chronic Qualifiers: Ascites type: other type Qualified Code(s): R18.8 - Other ascites (3) Cirrhosis Current Visit: No Status: Chronic Qualifiers: Hepatic cirrhosis type: unspecified hepatic cirrhosis Ascites presence: with ascites Qualified Code(s): K74.60 - Unspecified cirrhosis of liver; R18.8 - Other ascites (4) CREST (calcinosis, Raynaud's phenomenon, esophageal dysfunction, sclerodactyly, telangiectasia) Current Visit: No Status: Chronic (5) CAD (coronary artery disease) Current Visit: No Status: Chronic Qualifiers: Coronary Disease-Associated Artery/Lesion type: [place] artery [place] vs. transplanted heart: [place] heart Associated angina: without angina Qualified Code(s): I25.10 - Atherosclerotic heart disease of [place] coronary artery without angina pectoris (6) Acute on chronic kidney failure Current Visit: Yes Status: Acute Qualifiers: Acute renal failure type: unspecified Chronic kidney disease stage: stage 3 (moderate) Qualified Code(s): N17.9 - Acute kidney failure, unspecified; N18.3 - Chronic kidney disease, stage 3 (moderate) History of Present Illness Consult date: 08/08/18 Reason for consult: other (C. dif colitis) Requesting physician: Dirk Hess History of present illness: This 68 y/o female patient is admitted for severe C. diff colitis. She reports symptoms started a week ago. She was started on medicine for diarrhea (Xifaxan). She reports abdominal pain and mild distension. She reports feeling better since she has been admitted. Denies bloody diarrhea. Denies fevers. Past Med Surg Social Fam HX - Past Medical History Medical history: cirrhosis, coronary artery disease, GERD, hyperlipidemia, myocardial infarction, renal disease, other Additional medical history: Crest syndrome Psychiatric history: no psych history - Past Surgical History Surgical History: angioplasty/stent, cholecystectomy, hysterectomy, other Additional surgical history: Heart Stents x 8 - Social History Smoking Status: Never smoker Smokeless Tobacco Status: No Alcohol use: none Drug use: none - Family History Father Hx Family Cardiac Disorders: Yes Medications and Allergies Cevimeline HCl [Evoxac] 90 mg PO HS 01/02/15 [History] Doxepin HCl 30 mg PO HS 01/02/15 [History] Sildenafil Citrate [Revatio] 20 mg PO 3-4XD PRN 01/02/15 [History] Aspirin [Lo-Dose Aspirin EC] 81 mg PO 1200 08/08/18 [History] Atorvastatin [Lipitor] 40 mg PO 1200 08/08/18 [History] Calcium Carbonate/Vitamin D3 [Calcium 500 mg-Vit D3 600 Unit] 1 tab PO BID 08/08/18 [History] Ergocalciferol (VITAMIN D2) [Vitamin D2] 50,000 units PO MO 08/08/18 [History] Ferrous Sulfate 325 mg PO 1200 08/08/18 [History] Furosemide [Lasix] 40 mg PO QAM 08/08/18 [History] Lactulose [Enulose] 10 gm PO BID MDD 40GM 08/08/18 [History] Metoprolol Succinate [Toprol Xl] 50 mg PO BID 08/08/18 [History] Midodrine [ProAmatine] 5 mg PO TID 08/08/18 [History] Pantoprazole Sodium [Protonix] 40 mg PO QPM 08/08/18 [History] Rifaximin [Xifaxan] 550 mg PO BID 08/08/18 [History] Spironolactone [Aldactone] 25 mg PO 1200 08/08/18 [History] Tramadol HCl [Ultram] 50 mg PO Q8H PRN 08/08/18 [History] Allergy/AdvReac Type Severity Reaction Status Date / Time codeine Allergy Mild Nausea Verified 08/08/18 16:46 Review of Systems All systems PM: The remainder of the systems were reviewed and are negative - Constitutional as per HPI, malaise, no anorexia, no chills, no fatigue, no fever(s), no night sweats - EENT Nose, mouth and throat: dry mouth, no dizziness, no nasal congestion, no nasal discharge, no sinus pain, no sinus pressure, no sore throat - Cardiovascular no chest pain, no diaphoresis, no dyspnea, no edema - Respiratory no cough, no dyspnea, no wheezing - Gastrointestinal abdominal pain, bloating, diarrhea, no constipation, no hematochezia, no nausea, no vomiting - Genitourinary Genitourinary: no difficulty urinating, no dysuria, no flank pain, no urinary frequency - Musculoskeletal no back pain, no joint swelling, no limited range of motion, no neck pain - Integumentary no dry skin, no pruritus, no rash, no wounds, no jaundice - Neurological no confusion, no dizziness, no focal weakness, no numbness, no weakness - Psychiatric no anxiety, no depression - Hematologic/Lymphatic no easy bleeding, no easy bruising General Surgery Exam Initial Vital Signs Temp Pulse Resp BP Pulse Ox 96.6 F L 86 18 83/60 96 08/08/18 11:48 08/08/18 11:48 08/08/18 11:48 08/08/18 11:48 08/08/18 11:48 - General physical appearance no distress, no pain. negative: cachectic, jaundice - Eyes PERRL, normal ocular movement. negative: icteric - ENT no congestion, dry mucosa. negative: nasal discharge - Neck no masses, trachea midline, no lymphadectomy, no venous distension - Respiratory normal respiratory effort, clear to auscultation - Cardiovascular Cardiovascular exam: Present: RRR. Absent: JVD - Abdomen Abdomen general surgery: Present: bowel sounds present, soft, distended, tender. Absent: guarding, rebound Abdominal Tenderness: Present: diffusely - Genitourinary Present: normal external genitalia - Integumentary Integumentary general surgery: Present: warm and dry - Neurologic Present: CN 2-12 grossly intact, normal coordination - Musculoskeletal Present: normal posture - Psychiatric Psychiatric general surgery: Present: A&Ox3, appropriate Exam Initial Vital Signs Temp Pulse Resp BP Pulse Ox 96.6 F L 86 18 83/60 96 08/08/18 11:48 08/08/18 11:48 08/08/18 11:48 08/08/18 11:48 08/08/18 11:48 Results - Labs 08/08/18 12:29 08/08/18 19:21 Abnormal lab results WBC 43.0 K/mcL (4.3-11.1) H* 08/08/18 12:29 RDW 15.7 % (11.5-14.5) H 08/08/18 12:29 12.0 % (0-4) H 08/08/18 12:29 40.4 K/mcL (1.6-8.9) H 08/08/18 12:29 2.6 K/mcL (0.0-1.3) H 08/08/18 12:29 Present (Not Present) A 08/08/18 12:29 Present (Not Present) A 08/08/18 12:29 1+ (Not Present) A 08/08/18 12:29 1+ (Not Present) A 08/08/18 12: 1+ (Not Present) A 08/08/18 12: PT 14.3 Seconds (9.4-12.1) H 08/08/18 12:29 Sodium 128 mEq/L (136-145) L 08/08/18 19:21 Chloride 92 mEq/L (98-107) L 08/08/18 12: Carbon Dioxide 17 mEq/L (23-29) L 08/08/18 19:21 BUN 64 mg/dL (8-23) H 08/08/18 19:21 1.92 mg/dL (0.60-1.20) H 08/08/18 19:21 Est GFR ( Amer) 32 (> 60) L 08/08/18 19:21 Est GFR (Non-Af Amer) 26 (> 60) L 08/08/18 19:21 33 (6-26) H 08/08/18 19:21 274 (280-300) L 08/08/18 12:29 Lactic Acid 3.0 mmol/L (0.5-2.2) H 08/08/18 16:26 Calcium 6.9 mg/dL (8.6-10.3) L 08/08/18 19:21 1.3 mg/dL (0.3-1.0) H 08/08/18 12:29 0.5 mg/dL (0.0-0.2) H 08/08/18 12:29 ALT 5 Units/L (7-52) L 08/08/18 12: 149 Units/L (34-104) H 08/08/18 12:29 5.6 g/dL (6.4-8.9) L 08/08/18 12:29 2.5 g/dL (3.5-5.7) L 08/08/18 12:29 0.8 (1.1-2.2) L 08/08/18 12:29 10 Units/L (11-82) L 08/08/18 12:29 Small (Negative) H 08/08/18 13:44 Ur Leukocyte Esterase Trace (Negative) H 08/08/18 13:44 Ur Squamous Epith Cells Many per lpf (None-Few) H 08/08/18 13:44 Hyaline Casts Many per lpf (None-Few) H 08/08/18 13:44 Ur Culture Indicated? YES (NO) A 08/08/18 13:44 Diabetes panel 08/08/18 08/08/18 08/08/18 Range/Units 12:29 16:26 19:21 Sodium 122 L 126 L 128 L (136-145) mEq/L Potassium 4.4 4.0 3.6 (3.5-5.1) mEq/L Chloride 92 L 100 99 (98-107) mEq/L Carbon Dioxide 15 L 16 L 17 L (23-29) mEq/L BUN 71 H 66 H 64 H (8-23) mg/dL Creatinine 2.34 H 2.09 H 1.92 H (0.60-1.20) mg/dL Glucose 92 81 91 (70-105) mg/dL Calcium 8.2 L 7.1 L 6.9 L (8.6-10.3) mg/dL AST 14 (13-39) Units/L ALT 5 L (7-52) Units/L Alkaline Phosphatase 149 H (34-104) Units/L Albumin 2.5 L (3.5-5.7) g/dL Calcium panel 08/08/18 08/08/18 08/08/18 Range/Units 12:29 16:26 19:21 Calcium 8.2 L 7.1 L 6.9 L (8.6-10.3) mg/dL Albumin 2.5 L (3.5-5.7) g/dL Pituitary panel 08/08/18 08/08/18 08/08/18 Range/Units 12:29 16:26 19:21 Sodium 122 L 126 L 128 L (136-145) mEq/L Potassium 4.4 4.0 3.6 (3.5-5.1) mEq/L Chloride 92 L 100 99 (98-107) mEq/L Carbon Dioxide 15 L 16 L 17 L (23-29) mEq/L BUN 71 H 66 H 64 H (8-23) mg/dL Creatinine 2.34 H 2.09 H 1.92 H (0.60-1.20) mg/dL Glucose 92 81 91 (70-105) mg/dL Calcium 8.2 L 7.1 L 6.9 L (8.6-10.3) mg/dL Adrenal panel 08/08/18 08/08/18 08/08/18 Range/Units 12:29 16:26 19:21 Sodium 122 L 126 L 128 L (136-145) mEq/L Potassium 4.4 4.0 3.6 (3.5-5.1) mEq/L Chloride 92 L 100 99 (98-107) mEq/L Carbon Dioxide 15 L 16 L 17 L (23-29) mEq/L BUN 71 H 66 H 64 H (8-23) mg/dL Creatinine 2.34 H 2.09 H 1.92 H (0.60-1.20) mg/dL Glucose 92 81 91 (70-105) mg/dL Calcium 8.2 L 7.1 L 6.9 L (8.6-10.3) mg/dL Total Bilirubin 1.3 H (0.3-1.0) mg/dL AST 14 (13-39) Units/L ALT 5 L (7-52) Units/L Alkaline Phosphatase 149 H (34-104) Units/L Albumin 2.5 L (3.5-5.7) g/dL All other labs normal. - Imaging CT scan - abdomen: image reviewed (diffuse colitis without toxic megacolon) CT scan - pelvis: image reviewed Consult Discharge Plan - Plan Referrals: Yonathan James Jr, MD [Primary Care Provider] -
[2018-08-08] MEDS ORDERED: CEVIMELINE HCL 30 MG PO SCH (21:00)
[2018-08-09] MEDS: traMADol 50 MG TABLET PO PRN ×2 (00:51→12:47)
--- NOTE | 2018-08-09 04:29 | Event Note ---
Date of Encounter: 08/09/18 Time of Encounter: 04:20 Alerted by Pharmacy that pt. is positive for C diff. PO Vancomycin ordered. Contact precautions added.
[2018-08-09] MEDS: *HR* Heparin 5,000 UNIT/ML VIAL SQ SCH ×2 (06:02→19:29)
[2018-08-09 06:25] LABS: Hematocrit 34.9 % (35.3-44.9); Hemoglobin 11.3 g/dL (11.5-15.4); Mean Corpuscular HGB Conc 32.4 g/dL (31.6-35.5); Mean Corpuscular Hemoglobin 29.4 pg (28.0-33.3); Mean Corpuscular Volume 90.6 fL (83.0-100.0); Mean Platelet Volume 10.2 fL (9.4-12.4); Platelet Count 172 K/mcL (140-400); Red Blood Count 3.85 M/mcL (3.82-4.97); Red Cell Distribution Width 15.5 % (11.5-14.5)
[2018-08-09 06:30] LABS: White Blood Count 38.5 K/mcL (4.3-11.1)
[2018-08-09 06:48] LABS: Lymphocytes # 0.8 K/mcL (0.6-4.6); Monocytes # 1.5 K/mcL (0.0-1.3); Neutrophils # 36.2 K/mcL (1.6-8.9)
[2018-08-09 06:49] LABS: Burr Cells 1+ (Not Present); Platelet Estimate Normal (Normal); Toxic Granulation Present (Not Present)
[2018-08-09] MEDS ORDERED: 0.9 % Sodium Chloride 1,000 ML IVC SCH (07:15)
[2018-08-09] MEDS ORDERED: Aspirin Enteric Coated 81 MG Tablet PO SCH ×2 (09:00→12:00)
[2018-08-09 09:24] LABS: Calcium 7.1 mg/dL (8.6-10.3); Potassium 3.3 mEq/L (3.5-5.1)
[2018-08-09] MEDS: Vancomycin Oral Soln 125 MG/2.5 ML UDC PO SCH ×4 (09:24→21:33)
[2018-08-09] MEDS: Aspirin Enteric Coated 81 MG Tablet PO SCH (09:24)
--- NOTE | 2018-08-09 10:21 | Internal Med Progress Note ---
Hospitalist Progress Note - Encounter Date of Encounter: 08/09/18 Time of Encounter: 08:45 - Subjective Interval History: Reports improvement in her abdominal pain but continues to have diarrhea. Had another episode of hypotension overnight requiring fluid bolus. Lactic acid and creatinine downtrending. No fever overnight - Exam Vitals: Temp Pulse Resp BP Pulse Ox 97.8 F 103 17 114/73 100 08/09/18 07:16 08/09/18 07:16 08/09/18 07:16 08/09/18 07:16 08/09/18 07:16 Exam: General: Alert and oriented, not in acute distress. Cardiovascular:Normal S1 & S2, No JVD. Pulse regular. Lungs: clear to auscultation, no wheezes/rales Abdomen:Soft, mildly distended and has generalized tenderness in all quadrants without rebound/guarding/rigidity Extremities:No joint swelling noted Neurological:Normal cognition and motor skills. Non-focal. No asterixis - Assessment and Plan (1) Severe sepsis Current Visit: Yes Status: Acute Assessment and Plan: Was diagnosed with C. diff 1 week ago but presented with persistent diarrhea and abdominal pain with CT scan showing pancolitis WBC 43, band 12%, lactic acid 3, and associated with AoCKD hypotensive on presentation responsive to IVF. Pt is noted to be on midodrine for chronic hypotension as well Cr and lactic acid improved with IVF overnight, noted slight drop in bicarb again this morning will continue IVF with bicarb and potassium continue PO Vanc D2 follow up on blood cultures surgery input appreciated (2) C. difficile colitis Current Visit: Yes Status: Acute Assessment and Plan: continue PO Vanc D2 (3) Acute on chronic kidney failure Current Visit: Yes Status: Acute Assessment and Plan: likely pre-renal in the setting of C. diff colitis +/- ATN from sepsis IVF as above, Cr downtrending. If cr worsens, will consult nephrology check US retroperitoneum (4) Hyponatremia Current Visit: Yes Status: Acute Assessment and Plan: likely due to hypovolemic hyponatremia improving, continue IVF as above (5) Cirrhosis Current Visit: No Status: Chronic Assessment and Plan: associated with splenomegaly, ascites, and reported esophageal varices will hold lactulose, lasix, and aldactone given severe sepsis poor prognosis overall but wants to remain full code after discussing with pt and pt's (6) CREST (calcinosis, Raynaud's phenomenon, esophageal dysfunction, sclerodactyly, telangiectasia) Current Visit: No Status: Chronic Assessment and Plan: continue Cevimeline for Raynaud's (7) CAD (coronary artery disease) Current Visit: No Status: Chronic Assessment and Plan: resume home meds hold bb due to hypotension (8) DVT prophylaxis Current Visit: No Status: Acute Assessment and Plan: SQ hep but would watch for Plt count given her cirrhosis - Time Spent with Patient Total time spent is greater than 50% in coordination of care (as documented) at patient's floor/unit and/or counseling patient: 25 - 35 minutes Plan of Care Discussed with: patient (discussed with the pharmacist) Internal Medicine: Result - Labs CBC & Chem 7: 08/09/18 06:03 08/09/18 08:50 Labs: Short CBC 08/08/18 08/09/18 Range/Units 12:29 06:03 WBC 43.0 H* 38.5 H* (4.3-11.1) K/mcL Hgb 12.8 11.3 L D (11.5-15.4) g/dL Hct 39.4 34.9 L (35.3-44.9) % Plt Count 165 172 (140-400) K/mcL Neutrophils # 40.4 H 36.2 H (1.6-8.9) K/mcL BMP 08/08/18 08/08/18 08/08/18 12:29 16:26 19:21 Sodium 122 L 126 L 128 L Potassium 4.4 4.0 3.6 Chloride 92 L 100 99 Carbon Dioxide 15 L 16 L 17 L BUN 71 H 66 H 64 H Creatinine 2.34 H 2.09 H 1.92 H Glucose 92 81 91 Calcium 8.2 L 7.1 L 6.9 L 08/09/18 08:50 Sodium 127 L Potassium 3.3 L Chloride 100 Carbon Dioxide 13 L BUN 65 H Creatinine 2.01 H Glucose 111 H Calcium 7.1 L Liver Function 08/08/18 Range/Units 12:29 Total Bilirubin 1.3 H (0.3-1.0) mg/dL Direct Bilirubin 0.5 H (0.0-0.2) mg/dL AST 14 (13-39) Units/L ALT 5 L (7-52) Units/L Alkaline Phosphatase 149 H (34-104) Units/L Albumin 2.5 L (3.5-5.7) g/dL Urine 08/08/18 Range/Units 13:44 Urine Color Dark Yellow (Yellow) Urine Clarity Clear (Clear) Urine pH 5.5 (5.0-8.0) pH Units Ur Specific [place] 1.020 (1.010-1.025) Urine Protein Negative (Neg-Trace) mg/dL Urine Glucose (UA) Normal (Normal) mg/dL - ABG Interpretation ABG results: PT/INR, D-dimer PT 14.3 Seconds (9.4-12.1) H 08/08/18 12:29 - Impressions Impressions Abdomen/Pelvis CT 08/08/18 12:03 IMPRESSION: 1. Nonspecific pancolitis 2. Cirrhosis with splenomegaly, ascites, and collateral vessels in the upper abdomen D/ / Vincent Henderson MD / Vincent Henderson MD Interpreting Provider: Vincent Henderson MD Consult Discharge Plan - Plan Referrals: Yonathan James Jr, MD [Primary Care Provider] - (3) Acute on chronic kidney failure Qualifiers: Acute renal failure type: unspecified Chronic kidney disease stage: stage 3 (moderate) Qualified Code(s): N17.9 - Acute kidney failure, unspecified; N18.3 - Chronic kidney disease, stage 3 (moderate) (5) Cirrhosis Qualifiers: Hepatic cirrhosis type: unspecified hepatic cirrhosis Ascites presence: with ascites Qualified Code(s): K74.60 - Unspecified cirrhosis of liver; R18.8 - Other ascites (7) CAD (coronary artery disease) Qualifiers: Coronary Disease-Associated Artery/Lesion type: [place] artery [place] vs. transplanted heart: [place] heart Associated angina: without angina Qualified Code(s): I25.10 - Atherosclerotic heart disease of [place] coronary artery without angina pectoris
[2018-08-09] MEDS: POTASSIUM CHLORIDE IVC SCH ×2 (11:34→21:27)
[2018-08-09] MEDS: SODIUM CHLORIDE 0.45% IVC SCH ×2 (11:34→21:27)
[2018-08-09] MEDS: SODIUM BICARBONATE IVC SCH ×2 (11:34→21:27)
--- NOTE | 2018-08-09 11:40 | AcuteCareSurgery Progress Note ---
<Amanda Amador - Last Filed: 08/09/18 14:13> Date of Encounter: 08/09/18 Time of Encounter: 11:40 - Assessment and Plan (1) C. difficile colitis Current Visit: Yes Status: Acute Failed outpatient management C. difficile colitis, presented with diarrhea and abdominal pain CT abdomen pelvis-nonspecific pancolitis, cirrhosis with spinal megaly, ascites, and collateral vessels and upper abdomen. Continues to have leukocytosis, decreased overnight, 43 yesterday, currently 38.5 Continue by mouth vancomycin Clear liquid diet No acute surgical management at this time, acute care surgery will continue to follow (2) Severe sepsis Current Visit: Yes Status: Acute Secondary to C. difficile colitis Sirs criteria-leukocytosis 38.5, temp 96.4, heart rate 95. Lactic acidosis has resolved Continue by mouth vancomycin, IV fluids Management per primary (3) Cirrhosis Current Visit: Yes Status: Chronic CT abdomen and pelvis-cirrhosis with splenomegaly, ascites, and collateral vessels in the upper abdomen Management per primary Qualifiers: Hepatic cirrhosis type: unspecified hepatic cirrhosis Ascites presence: with ascites Qualified Code(s): K74.60 - Unspecified cirrhosis of liver; R18.8 - Other ascites (4) Acute on chronic kidney failure Current Visit: Yes Status: Acute Some improvement of creatinine and BUN Continue IV fluids Management per primary Qualifiers: Acute renal failure type: unspecified Chronic kidney disease stage: stage 3 (moderate) Qualified Code(s): N17.9 - Acute kidney failure, unspecified; N18.3 - Chronic kidney disease, stage 3 (moderate) (5) DVT prophylaxis Current Visit: No Status: Acute Subcutaneous heparin Subjective Narrative: Patient seen and examined at bedside today. She continues to have liquid bowel movements. She states that her abdomen is less distended today than yesterday and states that she is feeling better overall. She continues to have some right-sided abdominal pain. She denies nausea, vomiting, fever, chills, chest pain, shortness breath, dysuria, hematuria, calf pain. Objective Vital Signs - Last 8 Hours Temp Pulse Resp BP Pulse Ox 08/09/18 11:23 96.4 F L 95 18 88/55 100 08/09/18 07:16 97.8 F 103 17 114/73 100 08/09/18 03:58 98.0 F 87 16 89/56 100 Intake and Output 08/08/18 08/09/18 08/09/18 23:59 07:59 15:59 Intake Total 1175 / 3405 2230 / 3405 Output Total 400 / 400 0 / 0 Balance -400 / 1600 1175 / 3405 2230 / 3405 Intake: IV Fluids 1075 / 2825 1750 / 2825 0.9 % Sodium Chloride 1,000 ML 1250 / 1250 @ 125 mls/hr IVC .Q8H [facility] Rx#: [id number] 0.9 % Sodium Chloride 500 ML @ 500 / 500 1000 mls/hr IVC .Q30M PRN Rx#: [id number] Sodium Bicarbonate 75 MEQ In 0. 1075 / 1075 45% Sodium Chloride 1000 Ml 1000 Ml 1,000 ML @ 125 mls/hr IVC .Q8H36M [facility] Rx#:[id number] Oral 100 / 580 480 / 580 Output: Urine 400 / 400 0 / 0 Other: Meal Breakfast Percent of Meal Consumed 25% Stool Size Small Moderate Stool Consistency liquid liquid Stool Color Brown Brown # Voids 1 # Urine Diapers 1 # Bowel Movements 1 1 - General physical appearance well developed, well nourished, no distress - Eyes PERRL, normal ocular movement - ENT normal mucosa, no congestion, poor long term - Neck Neck exam: trachea midline, no venous distension - Respiratory normal expansion, normal respiratory effort, clear to auscultation - Cardiovascular Cardiovascular exam: Present: RRR, no murmurs/rubs/gallops. Absent: JVD - Abdomen Abdomen: Present: bowel sounds present, soft, distended (Mildly), tender Abdominal Tenderness: RLQ - Integumentary no rash, no abnormal pigmentation - Neurologic normal coordination, normal sensation - Musculoskeletal normal posture - Psychiatric oriented to time, oriented to person, oriented to place, speech is normal, memory intact - Labs 08/09/18 06:03 08/09/18 08:50 Diabetes panel 08/08/18 08/08/18 08/08/18 Range/Units 12:29 16:26 19:21 Sodium 122 L 126 L 128 L (136-145) mEq/L Potassium 4.4 4.0 3.6 (3.5-5.1) mEq/L Chloride 92 L 100 99 (98-107) mEq/L Carbon Dioxide 15 L 16 L 17 L (23-29) mEq/L BUN 71 H 66 H 64 H (8-23) mg/dL Creatinine 2.34 H 2.09 H 1.92 H (0.60-1.20) mg/dL Glucose 92 81 91 (70-105) mg/dL Calcium 8.2 L 7.1 L 6.9 L (8.6-10.3) mg/dL AST 14 (13-39) Units/L ALT 5 L (7-52) Units/L Alkaline Phosphatase 149 H (34-104) Units/L Albumin 2.5 L (3.5-5.7) g/dL 08/09/18 Range/Units 08:50 Sodium 127 L (136-145) mEq/L Potassium 3.3 L (3.5-5.1) mEq/L Chloride 100 (98-107) mEq/L Carbon Dioxide 13 L (23-29) mEq/L BUN 65 H (8-23) mg/dL Creatinine 2.01 H (0.60-1.20) mg/dL Glucose 111 H (70-105) mg/dL Calcium 7.1 L (8.6-10.3) mg/dL AST (13-39) Units/L ALT (7-52) Units/L Alkaline Phosphatase (34-104) Units/L Albumin (3.5-5.7) g/dL Calcium panel 08/08/18 08/08/18 08/08/18 Range/Units 12:29 16:26 19:21 Calcium 8.2 L 7.1 L 6.9 L (8.6-10.3) mg/dL Albumin 2.5 L (3.5-5.7) g/dL 08/09/18 Range/Units 08:50 Calcium 7.1 L (8.6-10.3) mg/dL Albumin (3.5-5.7) g/dL Pituitary panel 08/08/18 08/08/18 08/08/18 Range/Units 12:29 16:26 19:21 Sodium 122 L 126 L 128 L (136-145) mEq/L Potassium 4.4 4.0 3.6 (3.5-5.1) mEq/L Chloride 92 L 100 99 (98-107) mEq/L Carbon Dioxide 15 L 16 L 17 L (23-29) mEq/L BUN 71 H 66 H 64 H (8-23) mg/dL Creatinine 2.34 H 2.09 H 1.92 H (0.60-1.20) mg/dL Glucose 92 81 91 (70-105) mg/dL Calcium 8.2 L 7.1 L 6.9 L (8.6-10.3) mg/dL 08/09/18 Range/Units 08:50 Sodium 127 L (136-145) mEq/L Potassium 3.3 L (3.5-5.1) mEq/L Chloride 100 (98-107) mEq/L Carbon Dioxide 13 L (23-29) mEq/L BUN 65 H (8-23) mg/dL Creatinine 2.01 H (0.60-1.20) mg/dL Glucose 111 H (70-105) mg/dL Calcium 7.1 L (8.6-10.3) mg/dL Adrenal panel 08/08/18 08/08/18 08/08/18 Range/Units 12:29 16:26 19:21 Sodium 122 L 126 L 128 L (136-145) mEq/L Potassium 4.4 4.0 3.6 (3.5-5.1) mEq/L Chloride 92 L 100 99 (98-107) mEq/L Carbon Dioxide 15 L 16 L 17 L (23-29) mEq/L BUN 71 H 66 H 64 H (8-23) mg/dL Creatinine 2.34 H 2.09 H 1.92 H (0.60-1.20) mg/dL Glucose 92 81 91 (70-105) mg/dL Calcium 8.2 L 7.1 L 6.9 L (8.6-10.3) mg/dL Total Bilirubin 1.3 H (0.3-1.0) mg/dL AST 14 (13-39) Units/L ALT 5 L (7-52) Units/L Alkaline Phosphatase 149 H (34-104) Units/L Albumin 2.5 L (3.5-5.7) g/dL 08/09/18 Range/Units 08:50 Sodium 127 L (136-145) mEq/L Potassium 3.3 L (3.5-5.1) mEq/L Chloride 100 (98-107) mEq/L Carbon Dioxide 13 L (23-29) mEq/L BUN 65 H (8-23) mg/dL Creatinine 2.01 H (0.60-1.20) mg/dL Glucose 111 H (70-105) mg/dL Calcium 7.1 L (8.6-10.3) mg/dL Total Bilirubin (0.3-1.0) mg/dL AST (13-39) Units/L ALT (7-52) Units/L Alkaline Phosphatase (34-104) Units/L Albumin (3.5-5.7) g/dL Consult Discharge Plan - Plan Referrals: Yonathan James Jr, MD [Primary Care Provider] - 08/22/18 3:30 pm <LauraCookien Ishan - Last Filed: 08/09/18 16:51> Date of Encounter: 08/09/18 Objective Vital Signs - Last 8 Hours Temp Pulse Resp BP Pulse Ox 08/09/18 11:23 96.4 F L 95 18 88/55 100 Intake and Output 08/09/18 08/09/18 08/09/18 07:59 15:59 23:59 Intake Total 1175 / 3895 2720 / 3895 Output Total 0 / 0 Balance 1175 / 3895 2720 / 3895 Intake: IV Fluids 1075 / 3075 2000 / 3075 0.9 % Sodium Chloride 1,000 ML 1250 / 1250 @ 125 mls/hr IVC .Q8H [facility] Rx#: [id number] 0.9 % Sodium Chloride 500 ML @ 500 / 500 1000 mls/hr IVC .Q30M [facility] Rx#: [id number] Sodium Bicarbonate 75 MEQ In 0. 1075 / 1075 45% Sodium Chloride 1000 Ml 1000 Ml 1,000 ML @ 125 mls/hr IVC .Q8H36M [facility] Rx#:[id number] Vancocin 1,000 MG In 0.9 % 250 / 250 Sodium Chloride 250 ML @ 166. 667 mls/hr IVPB ONCE ONE Rx#: [id number] Oral 100 / 820 720 / 820 Output: Urine 0 / 0 Other: Meal Lunch Percent of Meal Consumed 0% Stool Size Moderate Stool Consistency liquid Stool Color Brown # Voids 1 # Urine Diapers 1 # Bowel Movements 1 - Labs 08/09/18 06:03 08/09/18 14:57 Diabetes panel 08/08/18 08/08/18 08/09/18 Range/Units 16:26 19:21 08:50 Sodium 126 L 128 L 127 L (136-145) mEq/L Potassium 4.0 3.6 3.3 L (3.5-5.1) mEq/L Chloride 100 99 100 (98-107) mEq/L Carbon Dioxide 16 L 17 L 13 L (23-29) mEq/L BUN 66 H 64 H 65 H (8-23) mg/dL Creatinine 2.09 H 1.92 H 2.01 H (0.60-1.20) mg/dL Glucose 81 91 111 H (70-105) mg/dL Calcium 7.1 L 6.9 L 7.1 L (8.6-10.3) mg/dL 08/09/18 Range/Units 14:57 Sodium 125 L (136-145) mEq/L Potassium 3.6 (3.5-5.1) mEq/L Chloride 99 (98-107) mEq/L Carbon Dioxide 14 L (23-29) mEq/L BUN 62 H (8-23) mg/dL Creatinine 2.09 H (0.60-1.20) mg/dL Glucose 154 H (70-105) mg/dL Calcium 7.0 L (8.6-10.3) mg/dL Calcium panel 08/08/18 08/08/18 08/09/18 Range/Units 16:26 19:21 08:50 Calcium 7.1 L 6.9 L 7.1 L (8.6-10.3) mg/dL 08/09/18 Range/Units 14:57 Calcium 7.0 L (8.6-10.3) mg/dL Pituitary panel 08/08/18 08/08/18 08/09/18 Range/Units 16:26 19:21 08:50 Sodium 126 L 128 L 127 L (136-145) mEq/L Potassium 4.0 3.6 3.3 L (3.5-5.1) mEq/L Chloride 100 99 100 (98-107) mEq/L Carbon Dioxide 16 L 17 L 13 L (23-29) mEq/L BUN 66 H 64 H 65 H (8-23) mg/dL Creatinine 2.09 H 1.92 H 2.01 H (0.60-1.20) mg/dL Glucose 81 91 111 H (70-105) mg/dL Calcium 7.1 L 6.9 L 7.1 L (8.6-10.3) mg/dL 08/09/18 Range/Units 14:57 Sodium 125 L (136-145) mEq/L Potassium 3.6 (3.5-5.1) mEq/L Chloride 99 (98-107) mEq/L Carbon Dioxide 14 L (23-29) mEq/L BUN 62 H (8-23) mg/dL Creatinine 2.09 H (0.60-1.20) mg/dL Glucose 154 H (70-105) mg/dL Calcium 7.0 L (8.6-10.3) mg/dL Adrenal panel 08/08/18 08/08/18 08/09/18 Range/Units 16:26 19:21 08:50 Sodium 126 L 128 L 127 L (136-145) mEq/L Potassium 4.0 3.6 3.3 L (3.5-5.1) mEq/L Chloride 100 99 100 (98-107) mEq/L Carbon Dioxide 16 L 17 L 13 L (23-29) mEq/L BUN 66 H 64 H 65 H (8-23) mg/dL Creatinine 2.09 H 1.92 H 2.01 H (0.60-1.20) mg/dL Glucose 81 91 111 H (70-105) mg/dL Calcium 7.1 L 6.9 L 7.1 L (8.6-10.3) mg/dL 08/09/18 Range/Units 14:57 Sodium 125 L (136-145) mEq/L Potassium 3.6 (3.5-5.1) mEq/L Chloride 99 (98-107) mEq/L Carbon Dioxide 14 L (23-29) mEq/L BUN 62 H (8-23) mg/dL Creatinine 2.09 H (0.60-1.20) mg/dL Glucose 154 H (70-105) mg/dL Calcium 7.0 L (8.6-10.3) mg/dL - Attending Attestation I examined this patient and my medical decision-making was reviewed with the Resident Physician. I agree with the documented findings, disposition and treatment plan as described except to the extent set forth below. The patient is seen and evaluated on an acute care surgery rounds. Her abdomen is somewhat distended. She is tender to moderate palpation. There is no guarding or rebound. She is having active diarrhea area her white blood cell count is trending down but is still quite elevated. Continue aggressive therapy for Clostridium difficile colitis. No indication for acute surgical intervention at this time. Doron Sanchez MD FACS
[2018-08-09 11:55] LABS: Acinetobacter baumannii by PCR Not Detected (Not Detect); Candida albicans by PCR Not Detected (Not Detect); Candida glabrata by PCR Not Detected (Not Detect); Candida krusei by PCR Not Detected (Not Detect); Candida parapsilosis by PCR Not Detected (Not Detect); Candida tropicalis by PCR Not Detected (Not Detect); Enterobacter cloacae Cmplx PCR Not Detected (Not Detect); Enterobacteriaceae by PCR Not Detected (Not Detect); Enterococcus by PCR Not Detected (Not Detect); Escherichia coli by PCR Not Detected (Not Detect); Klebsiella oxytoca by PCR Not Detected (Not Detect); Klebsiella pneumoniae by PCR Not Detected (Not Detect); Proteus by PCR Not Detected (Not Detect); Pseudomonas aeruginosa by PCR Not Detected (Not Detect); Serratia marcescens by PCR Not Detected (Not Detect); Staphylococcus aureus by PCR Not Detected (Not Detect); Staphylococcus by PCR DETECTED (Not Detect); Streptococcus agalactiae(B)PCR Not Detected (Not Detect); Streptococcus by PCR Not Detected (Not Detect); Streptococcus pneumoniae PCR Not Detected (Not Detect); Streptococcus pyogenes (A) PCR Not Detected (Not Detect); mecA Methicillin-Resist Gene Not Detected (Not Detect)
[2018-08-09] MEDS: *HR* HYDROcodone/Acet 5/325 mg TABLET PO PRN (14:15)
[2018-08-09 15:30] LABS: Potassium 3.6 mEq/L (3.5-5.1)
[2018-08-09] MEDS ORDERED: 0.9 % Sodium Chloride 1,000 ML IVC ONE (16:29)
[2018-08-10] MEDS: SODIUM BICARBONATE IVC SCH (05:18)
[2018-08-10] MEDS: POTASSIUM CHLORIDE IVC SCH (05:18)
[2018-08-10] MEDS: SODIUM CHLORIDE 0.45% IVC SCH (05:18)
[2018-08-10] MEDS: *HR* Heparin 5,000 UNIT/ML VIAL SQ SCH ×2 (05:19→17:38)
[2018-08-10 05:53] LABS: Eosinophils # 0.3 K/mcL (0.0-0.6); Lymphocytes # 0.7 K/mcL (0.6-4.6); Lymphocytes % 2.5 %; Mean Corpuscular HGB Conc 33.3 g/dL (31.6-35.5); Mean Corpuscular Hemoglobin 29.9 pg (28.0-33.3); Mean Corpuscular Volume 89.7 fL (83.0-100.0); Mean Platelet Volume 10.4 fL (9.4-12.4); Monocytes # 2.7 K/mcL (0.0-1.3); Monocytes % 9.1 %; Neutrophils # 24.8 K/mcL (1.6-8.9); Platelet Count 175 K/mcL (140-400); Red Blood Count 3.68 M/mcL (3.82-4.97); Red Cell Distribution Width 15.6 % (11.5-14.5); Segmented Neutrophils % 83.4 %; White Blood Count 29.7 K/mcL (4.3-11.1)
[2018-08-10 06:20] LABS: Burr Cells 1+ (Not Present); Calcium 7.2 mg/dL (8.6-10.3); Magnesium 1.5 mg/dL (1.6-2.6); Platelet Estimate Normal (Normal); Poikilocytosis 1+ (Not Present); Potassium 4.6 mEq/L (3.5-5.1)
[2018-08-10] MEDS: Aspirin Enteric Coated 81 MG Tablet PO SCH (07:51)
[2018-08-10] MEDS: Vancomycin Oral Soln 125 MG/2.5 ML UDC PO SCH ×4 (07:52→20:36)
--- NOTE | 2018-08-10 07:53 | AcuteCareSurgery Progress Note ---
<Amanda Amador - Last Filed: 08/10/18 10:46> Date of Encounter: 08/10/18 Time of Encounter: 07:52 - Assessment and Plan (1) C. difficile colitis Current Visit: Yes Status: Acute Failed outpatient management C. difficile colitis, presented with diarrhea and abdominal pain CT abdomen pelvis-nonspecific pancolitis, cirrhosis with spinal megaly, ascites, and collateral vessels and upper abdomen. Leukocytosis continues to decline, currently 29.7 Continue by mouth vancomycin, day 3 Clear liquid diet Patient had increased abdominal distention today, KUB was ordered to assess for colon dilation KUB-normal appearance of the bowel, no evidence of obstruction or colonic dilation No acute surgical management at this time, acute care surgery will continue to follow (2) Severe sepsis Current Visit: Yes Status: Acute Improving Secondary to C. difficile colitis Sirs criteria-leukocytosis 29.7, heart rate 100 Hypotension has somewhat improved, afebrile Lactic acidosis has resolved Continue by mouth vancomycin, IV fluids Management per primary (3) Cirrhosis Current Visit: Yes Status: Chronic CT abdomen and pelvis-cirrhosis with splenomegaly, ascites, and collateral vessels in the upper abdomen Suspect increased distention secondary to ascites Management per primary Qualifiers: Hepatic cirrhosis type: unspecified hepatic cirrhosis Ascites presence: with ascites Qualified Code(s): K74.60 - Unspecified cirrhosis of liver; R18.8 - Other ascites (4) Acute on chronic kidney failure Current Visit: Yes Status: Acute Continues to have some mild improvement Retroperitoneal ultrasound-unremarkable, incidental note of large volume of intra-abdominal and pelvic ascites. Continue IV fluids Management per primary Qualifiers: Acute renal failure type: unspecified Chronic kidney disease stage: stage 3 (moderate) Qualified Code(s): N17.9 - Acute kidney failure, unspecified; N18.3 - Chronic kidney disease, stage 3 (moderate) (5) DVT prophylaxis Current Visit: No Status: Acute Subcutaneous heparin Subjective Narrative: Patient seen and examined at bedside today. She states that she did well overnight, she continues to have liquid bowel movements. She continues to have some diffuse abdominal pain. She denies nausea, vomiting, fever, chills, chest pain, short of breath, dysuria, hematochezia, melena, calf pain. Objective Vital Signs - Last 8 Hours Temp Pulse Resp BP Pulse Ox 08/10/18 07:13 97.4 F L 100 22 102/91 100 08/10/18 04:05 97.4 F L 102 21 101/65 100 Intake and Output 08/09/18 08/09/18 08/10/18 15:59 23:59 07:59 Intake Total 2720 / 6520 2625 / 6520 1100 / 1100 Output Total 150 / 150 Balance 2720 / 6520 2625 / 6520 950 / 950 Intake: IV Fluids 2000 / 5160 2085 / 5160 1000 / 1000 0.9 % Sodium Chloride 1,000 ML 1250 / 2250 1000 / 2250 @ 999 mls/hr IVC .Q1H1M [facility] Rx# :[id number] 0.9 % Sodium Chloride 500 ML @ 500 / 500 1000 mls/hr IVC .Q30M [facility] Rx#: [id number] KCl 20 MEQ Sodium Bicarbonate 1085 / 1085 1000 / 1000 75 MEQ In 0.45% Sodium Chloride 1000 Ml 1000 Ml 1,000 ML @ 125 mls/hr IVC .Q8H41M [facility] Rx#: [id number] Vancocin 1,000 MG In 0.9 % 250 / 250 Sodium Chloride 250 ML @ 166. 667 mls/hr IVPB ONCE [facility] Rx#: [id number] Oral 720 / 1360 540 / 1360 100 / 100 Output: Urine 150 / 150 Other: Meal Lunch Dinner Percent of Meal Consumed 0% Stool Size Large Stool Consistency liquid Stool Color Brown # Voids 1 1 1 # Urine Diapers 1 # Bowel Movements 1 Weight 57.516 kg Patient Weight 08/10/18 23:59 Weight 57.516 kg - General physical appearance well developed, well nourished, no distress - Eyes PERRL, normal ocular movement - ENT normal mucosa, no congestion, poor group home - Neck Neck exam: trachea midline, no venous distension - Cardiovascular Cardiovascular exam: Present: RRR, murmurs. Absent: JVD - Abdomen Abdomen: Present: bowel sounds present, soft, distended (Increased since yesterday), tender (Mildly) Abdominal Tenderness: diffusely - Integumentary no rash, no abnormal pigmentation - Neurologic CN 2-12 grossly intact, normal coordination, normal sensation - Musculoskeletal normal posture - Psychiatric oriented to time, oriented to person, oriented to place, speech is normal, memory intact - Labs 08/10/18 05:41 08/10/18 05:41 Diabetes panel 08/09/18 08/09/18 08/10/18 Range/Units 08:50 14:57 05:41 Sodium 127 L 125 L 126 L (136-145) mEq/L Potassium 3.3 L 3.6 4.6 D (3.5-5.1) mEq/L Chloride 100 99 100 (98-107) mEq/L Carbon Dioxide 13 L 14 L 16 L (23-29) mEq/L BUN 65 H 62 H 63 H (8-23) mg/dL Creatinine 2.01 H 2.09 H 2.06 H (0.60-1.20) mg/dL Glucose 111 H 154 H 106 H (70-105) mg/dL Calcium 7.1 L 7.0 L 7.2 L (8.6-10.3) mg/dL Calcium panel 08/09/18 08/09/18 08/10/18 Range/Units 08:50 14:57 05:41 Calcium 7.1 L 7.0 L 7.2 L (8.6-10.3) mg/dL Pituitary panel 08/09/18 08/09/18 08/10/18 Range/Units 08:50 14:57 05:41 Sodium 127 L 125 L 126 L (136-145) mEq/L Potassium 3.3 L 3.6 4.6 D (3.5-5.1) mEq/L Chloride 100 99 100 (98-107) mEq/L Carbon Dioxide 13 L 14 L 16 L (23-29) mEq/L BUN 65 H 62 H 63 H (8-23) mg/dL Creatinine 2.01 H 2.09 H 2.06 H (0.60-1.20) mg/dL Glucose 111 H 154 H 106 H (70-105) mg/dL Calcium 7.1 L 7.0 L 7.2 L (8.6-10.3) mg/dL Adrenal panel 08/09/18 08/09/18 08/10/18 Range/Units 08:50 14:57 05:41 Sodium 127 L 125 L 126 L (136-145) mEq/L Potassium 3.3 L 3.6 4.6 D (3.5-5.1) mEq/L Chloride 100 99 100 (98-107) mEq/L Carbon Dioxide 13 L 14 L 16 L (23-29) mEq/L BUN 65 H 62 H 63 H (8-23) mg/dL Creatinine 2.01 H 2.09 H 2.06 H (0.60-1.20) mg/dL Glucose 111 H 154 H 106 H (70-105) mg/dL Calcium 7.1 L 7.0 L 7.2 L (8.6-10.3) mg/dL Consult Discharge Plan - Plan Referrals: Yonathan James Jr, MD [Primary Care Provider] - 08/22/18 3:30 pm <Aleksey Horvath - Last Filed: 08/10/18 16:53> Date of Encounter: 08/10/18 Objective Vital Signs - Last 8 Hours Temp Pulse Resp BP Pulse Ox 08/10/18 11:16 97.4 F L 98 20 125/71 100 08/10/18 07:13 97.4 F L 100 22 102/91 100 Intake and Output 08/09/18 08/10/18 08/10/18 23:59 07:59 15:59 Intake Total 2625 / 6520 1100 / 1808 708 / 1808 Output Total 150 / 150 Balance 2625 / 6520 950 / 1658 708 / 1658 Intake: IV Fluids 2085 / 5160 1000 / 1708 708 / 1708 0.9 % Sodium Chloride 1,000 ML 1000 / 1000 @ 999 mls/hr IVC .Q1H1M [facility] Rx# :[id number] KCl 20 MEQ Sodium Bicarbonate 1085 / 1085 1000 / 1594 594 / 1594 75 MEQ In 0.45% Sodium Chloride 1000 Ml 1000 Ml 1,000 ML @ 125 mls/hr IVC .Q8H41M [facility] Rx#: [id number] Rocephin 1,000 MG In Water for inj. (sterile) 10 ML @ 600 mls/ hr IVP DAILY [facility] Rx#:[id number] Magnesium Sulfate 2 GM In 0.9 % 104 / 104 Sodium Chloride 100 ML @ 100 mls/hr IVPB ONCE [facility] Rx#: [id number] Oral 540 / 1360 100 / 100 0 / 100 Output: Urine 150 / 150 Other: Meal Dinner Lunch Percent of Meal Consumed 0% Stool Size Large Stool Consistency liquid Stool Color Brown # Voids 1 1 # Bowel Movements 1 Weight 57.516 kg Patient Weight 08/10/18 23:59 Weight 57.516 kg - Labs 08/10/18 05:41 08/10/18 05:41 Diabetes panel 08/09/18 08/10/18 Range/Units 14:57 05:41 Sodium 125 L 126 L (136-145) mEq/L Potassium 3.6 4.6 D (3.5-5.1) mEq/L Chloride 99 100 (98-107) mEq/L Carbon Dioxide 14 L 16 L (23-29) mEq/L BUN 62 H 63 H (8-23) mg/dL Creatinine 2.09 H 2.06 H (0.60-1.20) mg/dL Glucose 154 H 106 H (70-105) mg/dL Calcium 7.0 L 7.2 L (8.6-10.3) mg/dL Calcium panel 08/09/18 08/10/18 Range/Units 14:57 05:41 Calcium 7.0 L 7.2 L (8.6-10.3) mg/dL Pituitary panel 08/09/18 08/10/18 Range/Units 14:57 05:41 Sodium 125 L 126 L (136-145) mEq/L Potassium 3.6 4.6 D (3.5-5.1) mEq/L Chloride 99 100 (98-107) mEq/L Carbon Dioxide 14 L 16 L (23-29) mEq/L BUN 62 H 63 H (8-23) mg/dL Creatinine 2.09 H 2.06 H (0.60-1.20) mg/dL Glucose 154 H 106 H (70-105) mg/dL Calcium 7.0 L 7.2 L (8.6-10.3) mg/dL Adrenal panel 08/09/18 08/10/18 Range/Units 14:57 05:41 Sodium 125 L 126 L (136-145) mEq/L Potassium 3.6 4.6 D (3.5-5.1) mEq/L Chloride 99 100 (98-107) mEq/L Carbon Dioxide 14 L 16 L (23-29) mEq/L BUN 62 H 63 H (8-23) mg/dL Creatinine 2.09 H 2.06 H (0.60-1.20) mg/dL Glucose 154 H 106 H (70-105) mg/dL Calcium 7.0 L 7.2 L (8.6-10.3) mg/dL - Attending Attestation patient seen and examined. i have reviewed all labs, imaging, and notes. i have discussed the case in detail with the resident. i agree with the above assessment and plan and wish to add the following... C diff colitis; still with loose stools, but only one all day; soft abdomen; HDS; patient does have a history of ascites related to liver disease; plan for continued supportive therapy NPO IVF PO vanc trend WBC, temp serial exams; no acute surgery
[2018-08-10] MEDS: traMADol 50 MG TABLET PO PRN (09:59)
[2018-08-10] MEDS ORDERED: Magnesium Sulfate 2 GM in D5% in Water 100 ML IVPB ONE (11:15)
[2018-08-10] MEDS ORDERED: Sodium Bicarbonate 75 MEQ in 0.45 % Sodium Chloride 1,000 ML IVC SCH (11:15)
[2018-08-10] MEDS: cefTRIAXone 1,000 MG in Water for inj. (sterile) 10 ML IVP SCH (11:45)
--- NOTE | 2018-08-10 12:50 | Electrocardiograph Report ---
[facility] Test Date: 2018-08-08 Pat Name: Mira Tavares Department: [id number] Room: 2N14 Gender: F Cell Preparer: : 1950 Requested By: Landen Booker Order Number: [id number] Reading MD: Howie Rojas Measurements Intervals Rohwer Rate: 87 P: 28 IA: 171 QRS: -25 QRSD: 54 T: -59 QT: 445 QTc: 536 Interpretive Statements Sinus rhythm Lateral leads are also involved Prolonged QT interval Electronically Signed On 08-10-2018 12:49:24 EDT by Howie Rojas
[2018-08-10] MEDS: *HR* HYDROcodone/Acet 5/325 mg TABLET PO PRN ×2 (14:32→20:56)
--- NOTE | 2018-08-10 16:35 | Internal Med Progress Note ---
Hospitalist Progress Note - Encounter Date of Encounter: 08/10/18 Time of Encounter: 16:03 - Subjective Interval History: Pt is frail and week. at bedside. She reports having a bout of abdominal pain this am but has since resolved. She denies vomiting but does report nausea from time to time. She states diarrhea improving. She denies fever, chills, chest pain or SOB. - Exam Vitals: Temp Pulse Resp BP Pulse Ox 97.4 F L 98 20 125/71 100 08/10/18 11:16 08/10/18 11:16 08/10/18 11:16 08/10/18 11:16 08/10/18 11:16 Exam: General: Alert and oriented, not in acute distress. HEENT:EOMI, pupils equal, round and reactive. Cardiovascular: Normal S1 & S2, No JVD. Pulse regular. Lungs: clear to auscultation, no wheezes/rales Abdomen: Soft, mildly distended and has generalized tenderness in all quadrants without rebound/guarding/rigidity Extremities: No joint swelling noted Neurological: Normal cognition and motor skills. Non-focal. No asterixis Skin: Normal color, no rash, no lesions. Pulses: Carotid and radial pulses normal +2. - Assessment and Plan (1) Severe sepsis Current Visit: Yes Status: Acute Assessment and Plan: Was diagnosed with C. diff 1 week ago but presented with persistent diarrhea and abdominal pain with CT scan showing pancolitis WBC 43, band 12%, lactic acid 3, and associated with Acute kidney injury on CKD. Hypotensive o presentation but pt is also on midodrine for chronic hypotension. Creatinine and lactic acid improved with IVF overnight. Noted slight drop in bicarb again 08/09/18 morning. Was on IVF with bicarb and potassium. Potassium in IVF will be discontinued and K supplement held Continue PO Vanc D2. Follow up on blood cultures. surgery input appreciated and no acute surgical management at this time (2) Cirrhosis Current Visit: Yes Status: Chronic Assessment and Plan: Associated with splenomegaly, ascites, and reported esophageal varices. Will hold Lactulose, Lasix, and Aldactone given severe sepsis poor prognosis overall but per prior physician, pt wants to remain full code a fter discussing with pt and pt's (3) CREST (calcinosis, Raynaud's phenomenon, esophageal dysfunction, sclerodactyly, telangiectasia) Current Visit: No Status: Chronic Assessment and Plan: continue Cevimeline for Raynaud's (4) CAD (coronary artery disease) Current Visit: No Status: Chronic Assessment and Plan: resume home meds. On ASA and statin beta satya held due to hypotension (5) C. difficile colitis Current Visit: Yes Status: Acute Assessment and Plan: continue PO Vanc D2 (6) Acute on chronic kidney failure Current Visit: Yes Status: Acute Assessment and Plan: Likely pre-renal in the setting of C. diff colitis +/- ATN from sepsis IVF as above, Cr down-trending. Will consult nephrology to see. Retroperitoneum US reviewed. US retroperitoneum US/US retroperitoneal comp IMPRESSION: 1. Unremarkable sonographic appearance of the kidneys. 2. Unremarkable sonographic appearance of the urinary bladder. Postvoid residual of 62 mL. 3. Incidental note of a large volume of intra-abdominal and pelvic ascites. D/ / 08/09/2018 16:22:47 Daria Norman / ana Interpreting Provider: Daria Norman (7) Hyponatremia Current Visit: Yes Status: Acute Assessment and Plan: Likely due to hypovolemic hyponatremia continue IVF as ordered DVT Prophylaxis: SQ heparin, will monitor Plt count given her cirrhosis - Summary of Assessment and Plan Summary of Assessment and Plan: History of present illness: Ms. Tavares is a 68 year old female with history of Crest syndrome, cirrhosis, CAD s/p PCI, CKD, who presented to the ED with persistent diarrhea and abdominal pain. She states that she was diagnosed with C. diff early last week and, since she was on rifaximin, the dose was increased by her PCP. Unfortunately, her diarrhea and abdominal pain persisted hence she decided to come to the ED for further evaluation. Described as generalized, crampy pain, no aggravating/relieving factors, non radiating, associated with profuse diarrhea and intermittent nausea. Denies any melena, hematochezia, bright red blood per rectum. No fever/chills, dysuria, or urinary frequency. She denies any chest pain, shortness of breath, orthopnea, PND, or leg swelling. In the ED, she was noted to be hypotensive at 83/60, afebrile, and saturating well on room air. Labwork showed leukocytosis of 43 with 12% band, sodium of 122, creatinine 2.34 (baseline 1.5-6), and bicarb of 15. Lactic acid was also elevated at 3.1. CT Abdo pelvis showed pancolitis and cirrhosis with splenomegaly and ascites. She was given 2 L of IV fluid, started on PO vancomycin, and admitted for further management. - Time Spent with Patient Total time spent is greater than 50% in coordination of care (as documented) at patient's floor/unit and/or counseling patient: less than 15 minutes Plan of Care Discussed with: patient Internal Medicine: Result - Labs CBC & Chem 7: 08/10/18 05:41 08/10/18 05:41 Labs: Short CBC 08/10/18 Range/Units 05:41 WBC 29.7 H (4.3-11.1) K/mcL Hgb 11.0 L (11.5-15.4) g/dL Hct 33.0 L (35.3-44.9) % Plt Count 175 (140-400) K/mcL Neutrophils # 24.8 H (1.6-8.9) K/mcL BMP 08/10/18 05:41 Sodium 126 L Potassium 4.6 D Chloride 100 Carbon Dioxide 16 L BUN 63 H Creatinine 2.06 H Glucose 106 H Calcium 7.2 L - ABG Interpretation ABG results: PT/INR, D-dimer PT 14.3 Seconds (9.4-12.1) H 08/08/18 12:29 - Impressions Impressions Retroperitoneum Ultrasound 08/09/18 15:30 IMPRESSION: 1. Unremarkable sonographic appearance of the kidneys. 2. Unremarkable sonographic appearance of the urinary bladder. Postvoid residual of 62 mL. 3. Incidental note of a large volume of intra-abdominal and pelvic ascites. D/ / 08/09/2018 16:22:47 Daria Norman / ana Interpreting Provider: Daria Norman X-Ray 08/10/18 07:47 IMPRESSION: Normal appearance of the bowel. No evidence of obstruction or colonic dilation. D/ / Srinath Garcia MD / Srinath Garcia MD Interpreting Provider: Srinath Garcia MD Chest X-Ray 08/10/18 14:44 IMPRESSION: 1. Bibasilar airspace opacities, favored to be atelectasis. 2. Small bilateral pleural effusions. D/ / Jose G Hope MD / Jose G Hope MD Interpreting Provider: Jose G Hope MD Consult Discharge Plan - Plan Referrals: Yonathan James Jr, MD [Primary Care Provider] - 08/22/18 3:30 pm __ (2) Cirrhosis Qualifiers: Hepatic cirrhosis type: unspecified hepatic cirrhosis Ascites presence: with ascites Qualified Code(s): K74.60 - Unspecified cirrhosis of liver; R18.8 - Other ascites (4) CAD (coronary artery disease) Qualifiers: Coronary Disease-Associated Artery/Lesion type: [place] artery [place] vs. transplanted heart: [place] heart Associated angina: without angina Qualified Code(s): I25.10 - Atherosclerotic heart disease of [place] coronary artery without angina pectoris (6) Acute on chronic kidney failure Qualifiers: Acute renal failure type: unspecified Chronic kidney disease stage: stage 3 (moderate) Qualified Code(s): N17.9 - Acute kidney failure, unspecified; N18.3 - Chronic kidney disease, stage 3 (moderate)
--- NOTE | 2018-08-10 19:30 | Nephrology Consult Note ---
Date of Encounter: 08/10/18 Time of Encounter: 18:00 Assessment and Plan (1) KATHY (acute kidney injury) Status: Resolved Elevated SCr in the setting of sepsis, liver cirrhosis Agree with IVF Will check urine studies Will check cpk and uric acid levels No acute indication for CAP INSPECTOR at this time Avoid nephrotoxins if possible US of kidney noted unremarkable (2) Hyponatremia Status: Acute Sodium noted at likely due to cirrhosis Will check serum osm and urine osm (3) Colitis Status: Acute per primary (4) Cirrhosis Status: Chronic Per primary Qualifiers: Hepatic cirrhosis type: unspecified hepatic cirrhosis Ascites presence: with ascites Qualified Code(s): K74.60 - Unspecified cirrhosis of liver; R18.8 - Other ascites History of Present Illness - Reason for Consult Consult date: 08/10/18 Acute Kidney Injury, hyponatremia Requesting physician: Christiana Maria - History of Present Illness 68 y o female with PMH of CREST syndrome, cirrhosis, CAD s/p PCI and stage 3 CKD admitted 08/08/18 with persistent abd pain with diarrhea with a cdiff diagnosis recently. She was started on abx and also IVF for sepsis. Renal consulted for persistently elevated SCr at 1.98, GFR 25 with baseline at 1.63 as of oct last year. Pt seen and examined with husmartin at bedside who reports decreased po intake overall and was noted on diuretics prior to admission. Past Med Surg Social Fam HX - Past Medical History Medical history: cirrhosis, coronary artery disease, GERD, hyperlipidemia, myocardial infarction, renal disease, other Additional medical history: Crest syndrome Psychiatric history: no psych history - Past Surgical History Surgical History: angioplasty/stent, cholecystectomy, hysterectomy, other Additional surgical history: Heart Stents x 8 - Social History Smoking Status: Never smoker Smokeless Tobacco Status: No Alcohol use: none Drug use: none - Family History Father Hx Family Cardiac Disorders: Yes Medications and Allergies Cevimeline HCl [Evoxac] 90 mg PO HS 01/02/15 [History] Doxepin HCl 30 mg PO HS 01/02/15 [History] Sildenafil Citrate [Revatio] 20 mg PO 3-4XD PRN 01/02/15 [History] Aspirin [Lo-Dose Aspirin EC] 81 mg PO 1200 08/08/18 [History] Atorvastatin [Lipitor] 40 mg PO 1200 08/08/18 [History] Calcium Carbonate/Vitamin D3 [Calcium 500 mg-Vit D3 600 Unit] 1 tab PO BID 08/08/18 [History] Ergocalciferol (VITAMIN D2) [Vitamin D2] 50,000 units PO MO 08/08/18 [History] Ferrous Sulfate 325 mg PO 1200 08/08/18 [History] Furosemide [Lasix] 40 mg PO QAM 08/08/18 [History] Lactulose [Enulose] 10 gm PO BID MDD 40GM 08/08/18 [History] Metoprolol Succinate [Toprol Xl] 50 mg PO BID 08/08/18 [History] Midodrine [ProAmatine] 5 mg PO TID 08/08/18 [History] Pantoprazole Sodium [Protonix] 40 mg PO QPM 08/08/18 [History] Rifaximin [Xifaxan] 550 mg PO BID 08/08/18 [History] Spironolactone [Aldactone] 25 mg PO 1200 08/08/18 [History] Tramadol HCl [Ultram] 50 mg PO Q8H PRN 08/08/18 [History] Lactobacillus [Culturelle] 2 each PO DAILY #30 cap.sprink 08/16/18 [Rx] Sodium Bicarbonate 650 mg PO TID #60 tablet 08/16/18 [Rx] Sodium Chloride [Sodium Chloride Tab] 1 gm PO TID #60 tablet 08/16/18 [Rx] Vancomycin Oral Soln [Firvanq] 125 mg PO QID 7 Days #28 udc 08/16/18 [Rx] Allergy/AdvReac Type Severity Reaction Status Date / Time codeine Allergy Mild Nausea Verified 08/08/18 16:46 Review of Systems Constitutional: fatigue (admits) Nose, mouth and throat: dry mouth (admits) Gastrointestinal: abdominal pain (admits), nausea (admits), vomiting (admits) Exam - Vital Signs Vital signs: Initial Vital Signs Temp Pulse Resp BP Pulse Ox 96.6 F L 86 18 83/60 96 08/08/18 11:48 08/08/18 11:48 08/08/18 11:48 08/08/18 11:48 08/08/18 11:48 Vital Signs - Last 8 Hours Temp Pulse Resp BP Pulse Ox 08/10/18 19:06 97.4 F L 97 22 118/75 100 06/26/19 16:04 97.7 F 90 22 115/75 100 Intake and Output 08/10/18 08/10/18 08/10/18 07:59 15:59 23:59 Intake Total 1100 / 2048 708 / 2048 240 / 2048 Output Total 150 / 150 Balance 950 / 1898 708 / 1898 240 / 1898 Intake: IV Fluids 1000 / 1708 708 / 1708 KCl 20 MEQ Sodium Bicarbonate 1000 / 1594 594 / 1594 75 MEQ In 0.45% Sodium Chloride 1000 Ml 1000 Ml 1,000 ML @ 125 mls/hr IVC .Q8H41M [facility] Rx#: [id number] Rocephin 1,000 MG In Water for inj. (sterile) 10 ML @ 600 mls/ hr IVP DAILY [facility] Rx#:[id number] Magnesium Sulfate 2 GM In 0.9 % 104 / 104 Sodium Chloride 100 ML @ 100 mls/hr IVPB ONCE ONE Rx#: [id number] Oral 100 / 340 0 / 340 240 / 340 Output: Urine 150 / 150 Other: Meal Lunch Dinner Percent of Meal Consumed 0% Stool Size Large Stool Consistency liquid Stool Color Brown # Voids 1 # Bowel Movements 1 Weight 57.516 kg Patient Weight 08/10/18 23:59 Weight 57.516 kg - General Appearance General appearance: chronically ill, fatigue, frail EENT: ATNC, mucous membranes dry Neck: no JVD, supple Respiratory: clear Cardiology: edema, normal S1, normal S2 Gastrointestinal: no tenderness, no guarding, distended Integumentary: warm and dry Neurologic: no focal deficit Musculoskeletal: no deformities Psychiatric: mood/affect appropriate, cooperative Results - Lab Results 08/16/18 03:10 08/16/18 03:10 Consult Discharge Plan - Plan Instructions: Sepsis (DC) Referrals: Yonathan James Jr, MD [Primary Care Provider] - (Patient is going to [facility] no PCP appointment needed) Prescriptions: Lactobacillus [Culturelle] 2 each PO DAILY #30 cap.sprink Vancomycin Oral Soln [Firvanq] 125 mg PO QID 7 Days #28 udc Sodium Bicarbonate 650 mg PO TID #60 tablet Sodium Chloride [Sodium Chloride Tab] 1 gm PO TID #60 tablet
[2018-08-10 20:07] LABS: Albumin 2.1 g/dL (3.5-5.7); Calcium 7.5 mg/dL (8.6-10.3); Phosphorous 3.2 mg/dL (2.7-4.5); Potassium 4.7 mEq/L (3.5-5.1)
[2018-08-10 21:39] LABS: Uric Acid 9.7 mg/dL (2.3-7.6)
[2018-08-11 01:51] LABS: Hematocrit 32.5 % (35.3-44.9); Hemoglobin 10.7 g/dL (11.5-15.4); Immature Platelets 2.9 % (1.1-6.1); Mean Corpuscular HGB Conc 32.9 g/dL (31.6-35.5); Mean Corpuscular Hemoglobin 29.6 pg (28.0-33.3); Mean Corpuscular Volume 89.8 fL (83.0-100.0); Platelet Count 171 K/mcL (140-400); Red Blood Count 3.62 M/mcL (3.82-4.97); Red Cell Distribution Width 15.8 % (11.5-14.5); White Blood Count 21.2 K/mcL (4.3-11.1)
[2018-08-11 02:24] LABS: Albumin 2.1 g/dL (3.5-5.7); Calcium 7.5 mg/dL (8.6-10.3); Phosphorous 3.3 mg/dL (2.7-4.5); Potassium 4.6 mEq/L (3.5-5.1)
[2018-08-11 04:21] LABS: Eosinophils # 0.9 K/mcL (0.0-0.6); Lymphocytes # 0.4 K/mcL (0.6-4.6); Monocytes # 0.9 K/mcL (0.0-1.3); Neutrophils # 19.1 K/mcL (1.6-8.9); Toxic Granulation Present (Not Present)
[2018-08-11] MEDS: *HR* Heparin 5,000 UNIT/ML VIAL SQ SCH ×2 (05:06→17:15)
[2018-08-11] MEDS: Aspirin Enteric Coated 81 MG Tablet PO SCH (08:30)
[2018-08-11] MEDS: Vancomycin Oral Soln 125 MG/2.5 ML UDC PO SCH ×4 (08:31→20:33)
[2018-08-11] MEDS: cefTRIAXone 1,000 MG in Water for inj. (sterile) 10 ML IVP SCH (08:31)
--- NOTE | 2018-08-11 10:19 | AcuteCareSurgery Progress Note ---
<Susana Warner - Last Filed: 08/11/18 10:17> Date of Encounter: 08/11/18 Time of Encounter: 07:45 - Assessment and Plan (1) C. difficile colitis Current Visit: Yes Status: Acute Pt is much improved. She states she feel swell today. her exam is unremarkable from a surgery perspective. Recommend advance diet as tolerated per primary team. No surgical intervention is recommended and as such surgery will follow from a distance. Please call if any questions or needs arise. No surgical follow-up at d/c is indicated. Subjective Patient reports: no new complaints, feels better, pain is less, tolerating liquids well, voiding w/o difficulty, flatus, bowel movement, afebrile Objective Vital Signs - Last 8 Hours Temp Pulse Resp BP Pulse Ox 08/11/18 07:47 105 08/11/18 07:10 37.0 C 101 15 121/71 100 08/11/18 03:39 36.3 C L 114 20 153/82 100 Intake and Output 08/10/18 08/11/18 08/11/18 23:59 07:59 15:59 Intake Total 1480 / 3288 10 / 10 Output Total 350 / 350 Balance 1480 / 3138 -340 / -340 Intake: IV Fluids 1000 / 2708 10 / 10 Sodium Bicarbonate 75 MEQ In 0. 1000 / 1000 45% Sodium Chloride 1000 Ml 1000 Ml 1,000 ML @ 125 mls/hr IVC .Q8H36M [facility] Rx#:[id number] Rocephin 1,000 MG In Water for 10 10 inj. (sterile) 10 ML @ 600 mls/ hr IVP DAILY [facility] Rx#:[id number] Oral 480 / 580 Output: Urine 100 / 100 Emesis 250 / 250 Other: Meal Dinner Stool Size Small Small Stool Consistency liquid loose Stool Color Brown # Bowel Movements 1 # Bowel Movement Diapers 1 Weight 68.5 kg Patient Weight 08/11/18 23:59 Weight 68.5 kg - General physical appearance no distress - ENT poor assisted - Respiratory normal expansion, normal respiratory effort - Abdomen Abdomen: Present: bowel sounds present, soft, non tender - Neurologic normal sensation - Musculoskeletal normal posture - Psychiatric oriented to time, oriented to person, oriented to place - Labs 08/11/18 01:23 08/11/18 01:23 Diabetes panel 08/10/18 08/11/18 Range/Units 19:39 01:23 Sodium 128 L 127 L (136-145) mEq/L Potassium 4.7 4.6 (3.5-5.1) mEq/L Chloride 99 98 (98-107) mEq/L Carbon Dioxide 20 L 20 L (23-29) mEq/L BUN 61 H 62 H (8-23) mg/dL Creatinine 1.98 H 1.96 H (0.60-1.20) mg/dL Glucose 116 H 95 (70-105) mg/dL Calcium 7.5 L 7.5 L (8.6-10.3) mg/dL Albumin 2.1 L 2.1 L (3.5-5.7) g/dL Calcium panel 08/10/18 08/11/18 Range/Units 19:39 01:23 Calcium 7.5 L 7.5 L (8.6-10.3) mg/dL Phosphorus 3.2 3.3 (2.7-4.5) mg/dL Albumin 2.1 L 2.1 L (3.5-5.7) g/dL Pituitary panel 08/10/18 08/11/18 Range/Units 19:39 01:23 Sodium 128 L 127 L (136-145) mEq/L Potassium 4.7 4.6 (3.5-5.1) mEq/L Chloride 99 98 (98-107) mEq/L Carbon Dioxide 20 L 20 L (23-29) mEq/L BUN 61 H 62 H (8-23) mg/dL Creatinine 1.98 H 1.96 H (0.60-1.20) mg/dL Glucose 116 H 95 (70-105) mg/dL Calcium 7.5 L 7.5 L (8.6-10.3) mg/dL Adrenal panel 08/10/18 08/11/18 Range/Units 19:39 01:23 Sodium 128 L 127 L (136-145) mEq/L Potassium 4.7 4.6 (3.5-5.1) mEq/L Chloride 99 98 (98-107) mEq/L Carbon Dioxide 20 L 20 L (23-29) mEq/L BUN 61 H 62 H (8-23) mg/dL Creatinine 1.98 H 1.96 H (0.60-1.20) mg/dL Glucose 116 H 95 (70-105) mg/dL Calcium 7.5 L 7.5 L (8.6-10.3) mg/dL Albumin 2.1 L 2.1 L (3.5-5.7) g/dL Consult Discharge Plan - Plan Referrals: Yonathan James Jr, MD [Primary Care Provider] - 08/22/18 3:30 pm <Adams WeissJosé Antonio Kwadwo - Last Filed: 08/11/18 11:49> Date of Encounter: 08/11/18 - Assessment and Plan (1) C. difficile colitis Current Visit: Yes Status: Acute (2) Ascites Current Visit: Yes Status: Chronic Qualifiers: Ascites type: other type Qualified Code(s): R18.8 - Other ascites (3) Cirrhosis Current Visit: Yes Status: Chronic Qualifiers: Hepatic cirrhosis type: unspecified hepatic cirrhosis Ascites presence: with ascites Qualified Code(s): K74.60 - Unspecified cirrhosis of liver; R18.8 - Other ascites (4) CREST (calcinosis, Raynaud's phenomenon, esophageal dysfunction, sclero dactyly, telangiectasia) Current Visit: No Status: Chronic (5) CAD (coronary artery disease) Current Visit: No Status: Chronic Qualifiers: Coronary Disease-Associated Artery/Lesion type: [place] artery [place] vs. transplanted heart: [place] heart Associated angina: without angina Qualified Code(s): I25.10 - Atherosclerotic heart disease of [place] coronary artery wit hout angina pectoris (6) Acute on chronic kidney failure Current Visit: Yes Status: Acute Qualifiers: Acute renal failure type: unspecified Chronic kidney disease stage: stage 3 (moderate) Qualified Code(s): N17.9 - Acute kidney failure, unspecified; N18.3 - Chronic kidney disease, stage 3 (moderate) Objective Vital Signs - Last 8 Hours Temp Pulse Resp BP Pulse Ox 08/11/18 11:27 97.4 F L 112 20 116/80 100 08/11/18 07:47 105 08/11/18 07:10 98.6 F 101 15 121/71 100 Intake and Output 08/10/18 08/11/18 08/11/18 23:59 07:59 15:59 Intake Total 1480 / 3288 Output Total 350 / 350 Balance 1480 / 3138 -340 / -340 Intake: IV Fluids 1000 / 2708 Sodium Bicarbonate 75 MEQ In 0. 1000 / 1000 45% Sodium Chloride 1000 Ml 1000 Ml 1,000 ML @ 125 mls/hr IVC .Q8H36M [facility] Rx#:[id number] Rocephin 1,000 MG In Water for inj. (sterile) 10 ML @ 600 mls/ hr IVP DAILY [facility] Rx#:[id number] Oral 480 / 580 Output: Urine 100 / 100 Emesis 250 / 250 Other: Meal Dinner Stool Size Small Small Stool Consistency liquid loose Stool Color Brown # Bowel Movements 1 # Bowel Movement Diapers 1 Weight 68.5 kg Patient Weight 08/11/18 23:59 Weight 68.5 kg - Labs 08/11/18 01:23 08/11/18 01:23 Diabetes panel 08/10/18 08/11/18 Range/Units 19:39 01:23 Sodium 128 L 127 L (136-145) mEq/L Potassium 4.7 4.6 (3.5-5.1) mEq/L Chloride 99 98 (98-107) mEq/L Carbon Dioxide 20 L 20 L (23-29) mEq/L BUN 61 H 62 H (8-23) mg/dL Creatinine 1.98 H 1.96 H (0.60-1.20) mg/dL Glucose 116 H 95 (70-105) mg/dL Calcium 7.5 L 7.5 L (8.6-10.3) mg/dL Albumin 2.1 L 2.1 L (3.5-5.7) g/dL Calcium panel 08/10/18 08/11/18 Range/Units 19:39 01:23 Calcium 7.5 L 7.5 L (8.6-10.3) mg/dL Phosphorus 3.2 3.3 (2.7-4.5) mg/dL Albumin 2.1 L 2.1 L (3.5-5.7) g/dL Pituitary panel 08/10/18 08/11/18 Range/Units 19:39 01:23 Sodium 128 L 127 L (136-145) mEq/L Potassium 4.7 4.6 (3.5-5.1) mEq/L Chloride 99 98 (98-107) mEq/L Carbon Dioxide 20 L 20 L (23-29) mEq/L BUN 61 H 62 H (8-23) mg/dL Creatinine 1.98 H 1.96 H (0.60-1.20) mg/dL Glucose 116 H 95 (70-105) mg/dL Calcium 7.5 L 7.5 L (8.6-10.3) mg/dL Adrenal panel 08/10/18 08/11/18 Range/Units 19:39 01:23 Sodium 128 L 127 L (136-145) mEq/L Potassium 4.7 4.6 (3.5-5.1) mEq/L Chloride 99 98 (98-107) mEq/L Carbon Dioxide 20 L 20 L (23-29) mEq/L BUN 61 H 62 H (8-23) mg/dL Creatinine 1.98 H 1.96 H (0.60-1.20) mg/dL Glucose 116 H 95 (70-105) mg/dL Calcium 7.5 L 7.5 L (8.6-10.3) mg/dL Albumin 2.1 L 2.1 L (3.5-5.7) g/dL - Attending Attestation I have personally performed a face to face evaluation on this patient. I have reviewed and agree with the care plan. History and Exam by me shows: continued abdominal distension. This is most likely d/t ascites secondary to cirrhosis. Pt to undergo IR paracentesis today. [place].
[2018-08-11 10:34] LABS: INR 1.2; Prothrombin Time 13.5 Seconds (9.4-12.1)
--- NOTE | 2018-08-11 12:00 | IR Procedure Note ---
Date of procedure: 08/11/18 Consent Obtained: Verbal consent, Written consent Timeout: Correct patient and procedure verified, Correct site verified, Time out performed, Skin prep completed Was there an certified nursing assistant instructor present: No Estimated blood loss (cc): 1 Complications: None; Tolerated procedure well Indications: Ascites Procedure Performed: US guided paracentesis Site/Technique: US guided paracentesis performed Results/Findings (any specimens removed): Small ascites Post Procedure Treatment Plan: Continue inpatient care Specimen: serous ascites
--- NOTE | 2018-08-11 15:08 | Internal Med Progress Note ---
Hospitalist Progress Note - Encounter Date of Encounter: 08/11/18 Time of Encounter: 15:08 - Subjective Interval History: Pt states diarrhea slowing down. She denies fever, chills, or N/V. She denies CP. at bedside very knowledgeable about her care and states they have been dealing with her hx of sclerederma, CREST for years. States they have been dealing with liver cirrhosis since 2014. - Exam Vitals: Temp Pulse Resp BP Pulse Ox 97.4 F L 112 20 116/80 100 08/11/18 11:27 08/11/18 11:27 08/11/18 11:08/11/18 11:08/11/18 11:27 Exam: General: Alert and oriented, not in acute distress. HEENT:EOMI, pupils equal, round and reactive. Cardiovascular: Normal S1 & S2, No JVD. Pulse regular. Lungs: clear to auscultation, no wheezes/rales Abdomen: Soft, mildly distended and has generalized tenderness in all quadrants without rebound/guarding/rigidity Extremities: No joint swelling noted Neurological: Normal cognition and motor skills. Non-focal. No asterixis Skin: Normal color, no rash, no lesions. Pulses: Carotid and radial pulses normal +2. - Assessment and Plan (1) Severe sepsis Current Visit: Yes Status: Acute Assessment and Plan: Was diagnosed with C. diff 1 week ago but presented with persistent diarrhea and abdominal pain with CT scan showing pancolitis WBC 43, band 12%, lactic acid 3, and associated with Acute kidney injury on CKD. Hypotensive o presentation but pt is also on midodrine for chronic hypotension. Creatinine and lactic acid improved with IVF overnight. Noted slight drop in bicarb again 08/09/18 morning. Was on IVF with bicarb and potassium. IVF was discontinued and K supplement held Continue PO Vanc D2. Follow up blood cultures shwoing E coli and Proteus mirabilis. BOth above stated organism susceptible to Rocephine which was initiated yesterday. Surgery input appreciated and no acute surgical management at this time (2) C. difficile colitis Current Visit: Yes Status: Acute Assessment and Plan: continue PO Vanc D2. Pt continues to improve. Decreasing stool count. (3) Acute cystitis Current Visit: Yes Status: Acute Assessment and Plan: Ecoli and Proteus on Rocephin (4) Cirrhosis Current Visit: Yes Status: Chronic Assessment and Plan: Associated with splenomegaly, ascites, and reported esophageal varices. Will hold Lactulose, Lasix, and Aldactone given severe sepsis poor prognosis overall but per prior physician, pt wants to remain full code after discussing with pt and pt's (5) CREST (calcinosis, Raynaud's phenomenon, esophageal dysfunction, sclerodac tyly, telangiectasia) Current Visit: No Status: Chronic Assessment and Plan: continue Cevimeline for Raynaud's (6) CAD (coronary artery disease) Current Visit: No Status: Chronic Assessment and Plan: resume home meds. On ASA and statin beta satya held due to hypotension (7) Acute on chronic kidney failure Current Visit: Yes Status: Acute Assessment and Plan: Likely pre-renal in the setting of C. diff colitis +/- ATN from sepsis Seen by nephrology and states okay to continue fluids but pt had some crackles in her bses and increasing LE edema so fluids held and will repeat labs in am. Retroperitoneum US reviewed. Urine culture showing E coli and Proteus Mirabilis Both sensitive to Rocephine. US retroperitoneum US/US retroperitoneal comp IMPRESSION: 1. Unremarkable sonographic appearance of the kidneys. 2. Unremarkable sonographic appearance of the urinary bladder. Postvoid residual of 62 mL. 3. Incidental note of a large volume of intra-abdominal and pelvic ascites. D/ / 08/09/2018 16:22:47 Daria Norman / ana Interpreting Provider: Daria Norman (8) Hyponatremia Current Visit: Yes Status: Acute Assessment and Plan: Likely due to hypovolemic hyponatremia Will check Na levels in am. Slowly improving DVT Prophylaxis: SQ heparin, will monitor Plt count given her cirrhosis - Summary of Assessment and Plan Summary of Assessment and Plan: History of present illness: Ms. Tavares is a 68 year old female with history of Crest syndrome, cirrhosis, CAD s/p PCI, CKD, who presented to the ED with persistent diarrhea and abdominal pain. She states that she was diagnosed with C. diff early last week and, since she was on rifaximin, the dose was increased by her PCP. Unfortunately, her diarrhea and abdominal pain persisted hence she decided to come to the ED for further evaluation. Described as generalized, crampy pain, no aggravating/relieving factors, non radiating, associated with profuse diarrhea and intermittent nausea. Denies any melena, hematochezia, bright red blood per rectum. No fever/chills, dysuria, or urinary frequency. She denies any chest pain, shortness of breath, orthopnea, PND, or leg swelling. In the ED, she was noted to be hypotensive at 83/60, afebrile, and saturating well on room air. Labwork showed leukocytosis of 43 with 12% band, sodium of 122, creatinine 2.34 (baseline 1.5-6), and bicarb of 15. Lactic acid was also elevated at 3.1. CT Abdo pelvis showed pancolitis and cirrhosis with splenomegaly and ascites. She was given 2 L of IV fluid, started on PO vancomycin, and admitted for further management. - Time Spent with Patient Total time spent is greater than 50% in coordination of care (as documented) at patient's floor/unit and/or counseling patient: less than 15 minutes Plan of Care Discussed with: patient Internal Medicine: Result - Labs CBC & Chem 7: 08/11/18 01:23 08/11/18 01:23 Labs: Short CBC 08/11/18 Range/Units 01:23 WBC 21.2 H (4.3-11.1) K/mcL Hgb 10.7 L (11.5-15.4) g/dL Hct 32.5 L (35.3-44.9) % Plt Count 171 (140-400) K/mcL Neutrophils # 19.1 H (1.6-8.9) K/mcL BMP 08/10/18 08/11/18 19:39 01:23 Sodium 128 L 127 L Potassium 4.7 4.6 Chloride 99 98 Carbon Dioxide 20 L 20 L BUN 61 H 62 H Creatinine 1.98 H 1.96 H Glucose 116 H 95 Calcium 7.5 L 7.5 L Liver Function 08/10/18 08/11/18 Range/Units 19:39 01:23 Albumin 2.1 L 2.1 L (3.5-5.7) g/dL - ABG Interpretation ABG results: PT/INR, D-dimer PT 13.5 Seconds (9.4-12.1) H 08/11/18 09:53 - Impressions Impressions Chest X-Ray 08/10/18 14:44 IMPRESSION: 1. Bibasilar airspace opacities, favored to be atelectasis. 2. Small bilateral pleural effusions. D/ / Jose G Hope MD / Jose G Hope MD Interpreting Provider: Jose G Hope MD Paracentesis Ultrasound 08/11/18 17:42 IMPRESSION: Successful ultrasound guided paracentesis. D/ / Bull Scott MD / Bull Scott MD Interpreting Provider: Bull Scott MD Consult Discharge Plan - Plan Referrals: Yonathan James Jr, MD [Primary Care Provider] - 08/22/18 3:30 pm (3) Acute cystitis Qualifiers: Hematuria presence: with hematuria Qualified Code(s): N30.01 - Acute cystitis with hematuria (4) Cirrhosis Qualifiers: Hepatic cirrhosis type: unspecified hepatic cirrhosis Ascites presence: with ascites Qualified Code(s): K74.60 - Unspecified cirrhosis of liver; R18.8 - Other ascites (6) CAD (coronary artery disease) Qualifiers: Coronary Disease-Associated Artery/Lesion type: [place] artery [place] vs. transplanted heart: [place] heart Associated angina: without angina Qualified Code(s): I25.10 - Atherosclerotic heart disease of [place] coronary artery witho ut angina pectoris (7) Acute on chronic kidney failure Qualifiers: Acute renal failure type: unspecified Chronic kidney disease stage: stage 3 (moderate) Qualified Code(s): N17.9 - Acute kidney failure, unspecified; N18.3 - Chronic kidney disease, stage 3 (moderate)
[2018-08-11 18:22] LABS: Creatinine,Urine 70 mg/dL; Sodium, Urine < 10.0 mEq/L
[2018-08-11] MEDS: *HR* HYDROcodone/Acet 5/325 mg TABLET PO PRN (20:33)
--- NOTE | 2018-08-11 23:36 | Nephrology Progress Note ---
Date of Encounter: 08/11/18 Time of Encounter: 12:00 - Assessment and Plan (1) KATHY (acute kidney injury) Current Visit: No Status: Resolved SCr noted about the same as yesterday at 1.96, GFR 26 Continue IVF and encouraged po fluids as well Urine sodium noted<10 consistent with pre-renal state possibly hepatorenal cpk WNL and uric acid elevated No acute indication for [employer] at this time Continue to avoid nephrotoxins if possible Can bolus albumin as needed (2) Hyponatremia Current Visit: Yes Status: Acute Sodium noted at 127 likely due to liver cirrhosis with normal serum osmolality Nothing to do for now, continue salt in diet (3) Colitis Current Visit: No Status: Acute per primary (4) Cirrhosis Current Visit: Yes Status: Chronic Per primary Qualifiers: Hepatic cirrhosis type: unspecified hepatic cirrhosis Ascites presence: with ascites Qualified Code(s): K74.60 - Unspecified cirrhosis of liver; R18.8 - Other ascites Subjective Interval history: Pt seen and examined with at beside who reports poor po intake. s/p paracentesis with approx. 1 liter removed per pt and 's report Objective - Vital Signs Vital signs: Vital Signs Temp Pulse Resp BP Pulse Ox 08/11/18 20:38 97.4 F L 98 18 132/77 100 08/11/18 19:43 98 08/11/18 16:17 97.5 F L 94 20 117/85 100 08/11/18 11:27 97.4 F L 112 20 116/80 100 08/11/18 07:47 105 08/11/18 07:10 98.6 F 101 15 121/71 100 08/11/18 03:39 97.4 F L 114 20 153/82 100 08/10/18 23:43 93 Intake and Output 08/11/18 08/11/18 08/11/18 07:59 15:59 23:59 Intake Total 610 / 730 120 / 730 Output Total 500 / 500 Balance 110 / 230 120 / 230 Intake: IV Fluids Rocephin 1,000 MG In Water for inj. (sterile) 10 ML @ 600 mls/ hr IVP DAILY [facility] Rx#:[id number] Oral 600 / 720 120 / 720 Output: Urine 250 / 250 Emesis 250 / 250 Other: Meal Breakfast Stool Size Small Small Stool Consistency liquid loose Stool Color Brown # Bowel Movements 1 # Bowel Movement Diapers 1 Weight 68.5 kg Patient Weight 08/11/18 23:59 Weight 68.5 kg - General Appearance General appearance: Present: chronically ill, fatigue, frail EENT: Present: ATNC, mucous membranes dry Neck: Present: no JVD, supple Respiratory: Present: clear (ant bilat) Cardiology: Present: edema (LE bilat), normal S1, normal S2 Gastrointestinal: Present: no tenderness, no guarding, distended Integumentary: Present: warm and dry Neurologic: Present: no focal deficit Musculoskeletal: Present: no deformities Psychiatric: Present: mood/affect appropriate, cooperative - Lab 08/11/18 01:23 08/11/18 01:23 Most recent lab results 08/11/18 17:19 Urine Creatinine 70 Urine Sodium < 10.0 Consult Discharge Plan - Plan Referrals: Yonathan James Jr, MD [Primary Care Provider] - 08/22/18 3:30 pm
[2018-08-12 03:22] LABS: Basophils # 0.1 K/mcL (0.0-0.2); Basophils % 0.6 %; Eosinophils # 0.3 K/mcL (0.0-0.6); Eosinophils % 1.7 %; Hematocrit 32.6 % (35.3-44.9); Hemoglobin 10.9 g/dL (11.5-15.4); Immature Granulocytes % 5.1 % (0-4); Lymphocytes # 0.7 K/mcL (0.6-4.6); Lymphocytes % 4.5 %; Mean Corpuscular HGB Conc 33.4 g/dL (31.6-35.5); Mean Corpuscular Hemoglobin 29.5 pg (28.0-33.3); Mean Corpuscular Volume 88.3 fL (83.0-100.0); Mean Platelet Volume 9.5 fL (9.4-12.4); Monocytes # 1.8 K/mcL (0.0-1.3); Monocytes % 10.9 %; Platelet Count 160 K/mcL (140-400); Red Blood Count 3.69 M/mcL (3.82-4.97); Red Cell Distribution Width 15.7 % (11.5-14.5); Segmented Neutrophils % 77.2 %; White Blood Count 16.1 K/mcL (4.3-11.1)
[2018-08-12 03:30] LABS: INR 1.1; Neutrophils # 12.4 K/mcL (1.6-8.9); Prothrombin Time 12.7 Seconds (9.4-12.1)
[2018-08-12 03:43] LABS: Albumin 2.2 g/dL (3.5-5.7); Albumin/Globulin Ratio 0.8 (1.1-2.2); Bilirubin,Total 1.1 mg/dL (0.3-1.0); Globulin 2.6 g/dL (2.4-3.5); Phosphorous 4.1 mg/dL (2.7-4.5); Potassium 4.5 mEq/L (3.5-5.1); Total Protein 4.8 g/dL (6.4-8.9)
[2018-08-12 04:08] LABS: Platelet Estimate Normal (Normal)
[2018-08-12] MEDS: *HR* Heparin 5,000 UNIT/ML VIAL SQ SCH ×2 (05:01→17:14)
[2018-08-12] MEDS: Aspirin Enteric Coated 81 MG Tablet PO SCH (08:18)
[2018-08-12] MEDS: Vancomycin Oral Soln 125 MG/2.5 ML UDC PO SCH ×4 (08:22→20:44)
[2018-08-12] MEDS: cefTRIAXone 1,000 MG in Water for inj. (sterile) 10 ML IVP SCH (08:23)
--- NOTE | 2018-08-12 12:11 | Internal Med Progress Note ---
Hospitalist Progress Note - Encounter Date of Encounter: 08/12/18 Time of Encounter: 12:08 - Subjective Interval History: Pt states she has been having tremors. concerned it has to do with her ammonia levels. She denies chest pain or SOB. She still reports not having an appetite. She denies fever chills N/V or diarrhea. She denies having abdominal pain. - Exam Vitals: Temp Pulse Resp BP Pulse Ox 97.6 F 97 16 140/79 100 08/12/18 06:38 08/12/18 08:00 08/12/18 06:38 08/12/18 06:38 08/12/18 05:00 Exam: General: Alert and oriented, not in acute distress. HEENT:EOMI, pupils equal, round and reactive. Cardiovascular: Normal S1 & S2, No JVD. Pulse regular. Lungs: clear to auscultation, no wheezes/rales Abdomen: Soft, mildly distended and has generalized tenderness in all quadrants without rebound/guarding/rigidity Extremities: No joint swelling noted Neurological: Normal cognition and motor skills. Non-focal. No asterixis Skin: Normal color, no rash, no lesions. Pulses: Carotid and radial pulses normal +2. - Assessment and Plan (1) Severe sepsis Current Visit: Yes Status: Acute Assessment and Plan: Was diagnosed with C. diff 1 week ago but presented with persistent diarrhea and abdominal pain with CT scan showing pancolitis WBC 43, band 12%, lactic acid 3, and associated with Acute kidney injury on CKD. Hypotensive on presentation but pt is also on midodrine for chronic hypotension. Creatinine and lactic acid improved with IVF overnight. Noted slight drop in bicarb again 08/09/18 morning. Was on IVF with bicarb and potassium. IVF was discontinued and K supplement held. Continue PO Vancomycin PO. Follow up blood cultures showing E coli and Proteus mirabilis. Both above stated organism susceptible to Rocephine which was initiated yesterday. Surgery input appreciated and no acute surgical management at this time (2) C. difficile colitis Current Visit: Yes Status: Acute Assessment and Plan: continue PO Vanc D2. Pt continues to improve. Decreasing stool count. (3) Acute cystitis Current Visit: Yes Status: Acute Assessment and Plan: Ecoli and Proteus on Rocephin (4) Cirrhosis Current Visit: Yes Status: Chronic Assessment and Plan: Associated with splenomegaly, ascites, and reported esophageal varices. Lactulose was on hold. concerned about bump in ammonia level but pt does not confused at this time. Lasix and Aldactone where held given severe sepsis and hypotension. poor prognosis overall but per prior physician, pt wants to remain full code after discussing with pt and pt's (5) CREST (calcinosis, Raynaud's phenomenon, esophageal dysfunction, sclerodactyly, telangiectasia) Current Visit: No Status: Chronic Assessment and Plan: continue Cevimeline for Raynaud's (6) CAD (coronary artery disease) Current Visit: No Status: Chronic Assessment and Plan: Resume home meds. On ASA and statin beta satya held due to hypotension (7) Acute on chronic kidney failure Current Visit: Yes Status: Acute Assessment and Plan: Likely pre-renal in the setting of C. diff colitis +/- ATN from sepsis Seen by nephrology and states okay to continue fluids but pt had Some crackles in her bases and increasing LE edema so fluids held and will repeat labs in am. Retroperitoneum US reviewed. Urine culture showing E coli and Proteus Mirabilis. Both sensitive to Rocephine. Will switch to Omnicef. US retroperitoneum US/US retroperitoneal comp IMPRESSION: 1. Unremarkable sonographic appearance of the kidneys. 2. Unremarkable sonographic appearance of the urinary bladder. Postvoid residual of 62 mL. 3. Incidental note of a large volume of intra-abdominal and pelvic ascites. D/ / 08/09/2018 16:22:47 Daria Norman / ana Interpreting Provider: Daria Norman (8) Hyponatremia Current Visit: Yes Status: Acute Assessment and Plan: Likely due to hypovolemic hyponatremia Na levels slowly improving. DVT Prophylaxis: SQ heparin. Will monitor Plt count given her cirrhosis - Summary of Assessment and Plan Summary of Assessment and Plan: History of present illness: Dr. Hess Ms. Tavares is a 68 year old female with history of Crest syndrome, cirrhosis, CAD s/p PCI, CKD, who presented to the ED with persistent diarrhea and abdominal pain. She states that she was diagnosed with C. diff early last week and, since she was on rifaximin, the dose was increased by her PCP. Unfortunately, her diarrhea and abdominal pain persisted hence she decided to come to the ED for further evaluation. Described as generalized, crampy pain, no aggravating/relieving factors, non radiating, associated with profuse diarrhea and intermittent nausea. Denies any melena, hematochezia, bright red blood per rectum. No fever/chills, dysuria, or urinary frequency. She denies any chest pain, shortness of breath, orthopnea, PND, or leg swelling. In the ED, she was noted to be hypotensive at 83/60, afebrile, and saturating well on room air. Labwork showed leukocytosis of 43 with 12% band, sodium of 122, creatinine 2.34 (baseline 1.5-6), and bicarb of 15. Lactic acid was also elevated at 3.1. CT Abdo pelvis showed pancolitis and cirrhosis with splenomegaly and ascites. She was given 2 L of IV fluid, started on PO vancomycin, and admitted for further management. - Time Spent with Patient Total time spent is greater than 50% in coordination of care (as documented) at patient's floor/unit and/or counseling patient: less than 15 minutes Plan of Care Discussed with: patient Internal Medicine: Result - Labs CBC & Chem 7: 08/12/18 03:00 08/12/18 03:00 Labs: Short CBC 08/12/18 Range/Units 03:00 WBC 16.1 H (4.3-11.1) K/mcL Hgb 10.9 L (11.5-15.4) g/dL Hct 32.6 L (35.3-44.9) % Plt Count 160 (140-400) K/mcL Neutrophils # 12.4 H (1.6-8.9) K/mcL BMP 08/12/18 03:00 Sodium 128 L Potassium 4.5 Chloride 99 Carbon Dioxide 18 L BUN 61 H Creatinine 1.87 H Glucose 85 Calcium 8.0 L Liver Function 08/12/18 Range/Units 03:00 Total Bilirubin 1.1 H (0.3-1.0) mg/dL AST 12 L (13-39) Units/L ALT 6 L (7-52) Units/L Alkaline Phosphatase 123 H (34-104) Units/L Albumin 2.2 L (3.5-5.7) g/dL - ABG Interpretation ABG results: PT/INR, D-dimer PT 12.7 Seconds (9.4-12.1) H 08/12/18 03:00 - Impressions Impressions Paracentesis Ultrasound 08/11/18 17:42 IMPRESSION: Successful ultrasound guided paracentesis. D/ / Bull Scott MD / Bull Scott MD Interpreting Provider: Bull Scott MD Consult Discharge Plan - Plan Referrals: Yonathan James Jr, MD [Primary Care Provider] - 08/22/18 3:30 pm (3) Acute cystitis Qualifiers: Hematuria presence: with hematuria Qualified Code(s): N30.01 - Acute cystitis with hematuria (4) Cirrhosis Qualifiers: Hepatic cirrhosis type: unspecified hepatic cirrhosis Ascites presence: with ascites Qualified Code(s): K74.60 - Unspecified cirrhosis of liver; R18.8 - Other ascites (6) CAD (coronary artery disease) Qualifiers: Coronary Disease-Associated Artery/Lesion type: [place] artery [place] vs. transplanted heart: [place] heart Associated angina: without angina Qualified Code(s): I25.10 - Atherosclerotic heart disease of [place] coronary artery without angina pectoris (7) Acute on chronic kidney failure Qualifiers: Acute renal failure type: unspecified Chronic kidney disease stage: stage 3 (moderate) Qualified Code(s): N17.9 - Acute kidney failure, unspecified; N18.3 - Chronic kidney disease, stage 3 (moderate)
[2018-08-12] MEDS ORDERED: Sodium Bicarbonate 50 MEQ in 0.45 % Sodium Chloride 1,000 ML IVC SCH (12:30)
[2018-08-12] MEDS: Calcium Gluconate 1gm/50mL 1 GM/50 ML BAG IVPB SCH ×2 (13:26→13:51)
--- NOTE | 2018-08-12 16:38 | Nephrology Progress Note ---
Date of Encounter: 08/12/18 Time of Encounter: 10:51 - Assessment and Plan (1) CKD (chronic kidney disease), stage IV Current Visit: Yes Status: Chronic She is back to her baseline of stage IIIb-IV with baseline GFR in very low 30s to upper 20s, and so the KATHY is improved. I will politely sign off at this point, but I recommend the pt follow up with Nephrology (she established during this admission with Dr. Zaidi) in 2-5 weeks with a BMP to be checked about a week after discharge. Please feel free to call or page me with any renal questions. (2) KATHY (acute kidney injury) Current Visit: No Status: Resolved (3) Hyponatremia Current Visit: Yes Status: Acute Acute on chronic: monitor fluid intake and volume status. Subjective Principal diagnosis: KATHY on CKD, Hyponatremia Interval history: Pt was briefly seen / examined visually. I reviewed the handoff notes from my colleague Dr. Zaidi. Objective - Vital Signs Vital signs: Vital Signs Temp Pulse Resp BP Pulse Ox 08/12/18 12:18 98.4 F 94 17 153/102 100 08/12/18 08:00 97 08/12/18 06:38 97.6 F 101 16 140/79 08/12/18 05:05 86 118/56 08/12/18 05:00 97.3 F L 103 16 121/71 100 08/12/18 01:38 97.6 F 102 17 128/69 100 08/12/18 00:20 99 08/11/18 20:38 97.4 F L 98 18 132/77 100 08/11/18 19:43 98 Intake and Output 08/12/18 08/12/18 08/12/18 07:59 15:59 23:59 Intake Total 360 / 460 100 / 460 Balance 360 / 460 100 / 460 Intake: IV Fluids 100 / 100 Calcium Gluconate 1gm/50mL 1 gm 100 / 100 In 50 ml @ 100 mls/hr IVPB Q30M [facility] Rx#:[id number] Oral 360 / 360 Other: Weight 67.3 kg Patient Weight 08/12/18 23:59 Weight 67.3 kg - General Appearance General appearance: Present: well-developed Exam: laying supine in bed - Lab 08/12/18 03:00 08/12/18 03:00 Most recent lab results 08/12/18 10:25 Magnesium 2.3 Consult Discharge Plan - Plan Referrals: Yonathan James Jr, MD [Primary Care Provider] - 08/22/18 3:30 pm
[2018-08-12] MEDS: *HR* HYDROcodone/Acet 5/325 mg TABLET PO PRN (20:47)
[2018-08-12] MEDS ORDERED: Lactulose Oral Soln 20 GM/30 ML UDC PO SCH (21:00)
[2018-08-12] MEDS ORDERED: *HR* Metoprolol 5 MG/5 ML VIAL IVP ONE ×2 (22:23→22:30)
[2018-08-13] MEDS: traMADol 50 MG TABLET PO PRN ×3 (01:16→17:26)
[2018-08-13] MEDS: *HR* Heparin 5,000 UNIT/ML VIAL SQ SCH ×2 (05:05→17:28)
[2018-08-13 06:11] LABS: Albumin 2.2 g/dL (3.5-5.7); Calcium 8.5 mg/dL (8.6-10.3); Phosphorous 4.3 mg/dL (2.7-4.5); Potassium 4.5 mEq/L (3.5-5.1)
[2018-08-13] MEDS: cefTRIAXone 1,000 MG in Water for inj. (sterile) 10 ML IVP SCH (08:12)
[2018-08-13] MEDS: Aspirin Enteric Coated 81 MG Tablet PO SCH (08:13)
[2018-08-13] MEDS: Vancomycin Oral Soln 125 MG/2.5 ML UDC PO SCH ×4 (08:13→20:25)
[2018-08-13 10:32] LABS: Hematocrit 32.3 % (35.3-44.9); Hemoglobin 10.7 g/dL (11.5-15.4); Mean Corpuscular HGB Conc 33.1 g/dL (31.6-35.5); Mean Corpuscular Hemoglobin 30.1 pg (28.0-33.3); Mean Platelet Volume 10.3 fL (9.4-12.4); Platelet Count 135 K/mcL (140-400); Red Blood Count 3.55 M/mcL (3.82-4.97); Red Cell Distribution Width 15.9 % (11.5-14.5); White Blood Count 12.7 K/mcL (4.3-11.1)
[2018-08-13 10:57] LABS: Anisocytosis 1+ (Not Present); Neutrophils # 10.7 K/mcL (1.6-8.9); Platelet Estimate Normal (Normal)
--- NOTE | 2018-08-13 11:44 | Internal Med Progress Note ---
Hospitalist Progress Note - Encounter Date of Encounter: 08/13/18 Time of Encounter: 11:42 - Subjective Interval History: Pt is looking and feeling much better. She denies fever, chills, N/V or diarrhea. Tremors from yesterday has resolved. She denies chest pain or SOB. She denies abdominal pain and diarrhea much improved. - Exam Vitals: Temp Pulse Resp BP Pulse Ox 97.3 F L 86 18 151/88 96 08/13/18 11:17 08/13/18 11:17 08/13/18 11:17 08/13/18 11:17 08/13/18 11:17 Exam: General: Alert and oriented, not in acute distress. HEENT:EOMI, pupils equal, round and reactive. Cardiovascular: Normal S1 & S2, No JVD. Pulse regular. Lungs: clear to auscultation, no wheezes/rales Abdomen: Soft, mildly distended and generalized tenderness in all quadrants but mild without rebound/guarding/rigidity Extremities: No joint swelling noted Neurological: Normal cognition and motor skills. Non-focal. No asterixis Skin: Normal color, no rash, no lesions. Pulses: Carotid and radial pulses normal +2. - Assessment and Plan (1) Severe sepsis Current Visit: Yes Status: Acute Assessment and Plan: Was diagnosed with C. diff 1 week ago but presented with persistent diarrhea and abdominal pain with CT scan showing pancolitis WBC 43, band 12%, lactic acid 3, and associated with Acute kidney injury on CKD. Hypotensive on presentation but pt is also on midodrine for chronic hypotension. Creatinine and lactic acid improved with IVF overnight. Noted slight drop in bicarb again 08/09/18 morning. Was on IVF with bicarb and potassium. IVF was discontinued and K supplement held. Continue PO Vancomycin PO. Follow up blood cultures showing E coli and Proteus mirabilis. Both above stated organism susceptible to Rocephine which was initiated y . Surgery input appreciated and no acute surgical management at this time (2) C. difficile colitis Current Visit: Yes Status: Acute Assessment and Plan: continue PO Vanc D2. Pt continues to improve. Decreasing stool count. 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 Lactulose was on hold. concerned about bump in ammonia level but pt does not appear confused at this time. Lasix and Aldactone where held given severe sepsis and hypotension. BP up so will resume medications. Poor prognosis overall but per prior physician, pt wants to remain full code after discussing with pt and pt's (5) CREST (calcinosis, Raynaud's phenomenon, esophageal dysfunction, sclerodactyly, telangiectasia) Current Visit: No Status: Chronic Assessment and Plan: continue Cevimeline for Raynaud's (6) CAD (coronary artery disease) Current Visit: No Status: Chronic Assessment and Plan: Resume home meds. On ASA and statin beta satya held due to hypotension. BP back up so will resume Lasix at 20 mg PO QD (7) Acute on chronic kidney failure Current Visit: Yes Status: Acute Assessment and Plan: Likely pre-renal in the setting of C. diff colitis +/- ATN from sepsis Seen by nephrology and states okay to continue fluids but pt had Some crackles in her bases and increasing LE edema so fluids held and monitor labs. Retroperitoneum US reviewed. Urine culture showing E coli and Proteus Mirabilis. Both sensitive to Rocephine. Switched to Omnicef. US retroperitoneum US/US retroperitoneal comp IMPRESSION: 1. Unremarkable sonographic appearance of the kidneys. 2. Unremarkable sonographic appearance of the urinary bladder. Postvoid residual of 62 mL. 3. Incidental note of a large volume of intra-abdominal and pelvic ascites. D/ / 08/09/2018 16:22:47 Daria Norman / ana Interpreting Provider: Daria Norman (8) Hyponatremia Current Visit: Yes Status: Acute Assessment and Plan: Likely due to hypovolemic hyponatremia Na levels slowly improving. DVT Prophylaxis: SQ heparin. Will monitor Plt count given her cirrhosis - Summary of Assessment and Plan Summary of Assessment and Plan: History of present illness: Dr. Hess Ms. Tavares is a 68 year old female with history of Crest syndrome, cirrhosis, CAD s/p PCI, CKD, who presented to the ED with persistent diarrhea and abdominal pain. She states that she was diagnosed with C. diff early last week and, since she was on rifaximin, the dose was increased by her PCP. Unfortunately, her diarrhea and abdominal pain persisted hence she decided to come to the ED for further evaluation. Described as generalized, crampy pain, no aggravating/relieving factors, non radiating, associated with profuse diarrhea and intermittent nausea. Denies any melena, hematochezia, bright red blood per rectum. No fever/chills, dysuria, or urinary frequency. She denies any chest pain, shortness of breath, orthopnea, PND, or leg swelling. In the ED, she was noted to be hypotensive at 83/60, afebrile, and saturating well on room air. Labwork showed leukocytosis of 43 with 12% band, sodium of 122, creatinine 2.34 (baseline 1.5-6), and bicarb of 15. Lactic acid was also elevated at 3.1. CT Abdo pelvis showed pancolitis and cirrhosis with splenomegaly and ascites. She was given 2 L of IV fluid, started on PO vancomycin, and admitted for further management. - Time Spent with Patient Total time spent is greater than 50% in coordination of care (as documented) at patient's floor/unit and/or counseling patient: less than 15 minutes Plan of Care Discussed with: patient Internal Medicine: Result - Labs CBC & Chem 7: 08/13/18 10:17 08/13/18 05:40 Labs: Short CBC 08/13/18 Range/Units 10:17 WBC 12.7 H (4.3-11.1) K/mcL Hgb 10.7 L (11.5-15.4) g/dL Hct 32.3 L (35.3-44.9) % Plt Count 135 L (140-400) K/mcL Neutrophils # 10.7 H (1.6-8.9) K/mcL BMP 08/13/18 05:40 Sodium 129 L Potassium 4.5 Chloride 99 Carbon Dioxide 19 L BUN 57 H Creatinine 1.75 H Glucose 99 Calcium 8.5 L Liver Function 08/13/18 Range/Units 05:40 Albumin 2.2 L (3.5-5.7) g/dL - ABG Interpretation ABG results: PT/INR, D-dimer PT 12.7 Seconds (9.4-12.1) H 08/12/18 03:00 Consult Discharge Plan - Plan Referrals: Yonathan James Jr, MD [Primary Care Provider] - 08/22/18 3:30 pm (3) Acute cystitis Qualifiers: Hematuria presence: with hematuria Qualified Code(s): N30.01 - Acute cystitis with hematuria (4) Cirrhosis Qualifiers: Hepatic cirrhosis type: unspecified hepatic cirrhosis Ascites presence: with ascites Qualified Code(s): K74.60 - Unspecified cirrhosis of liver; R18.8 - Other ascites (6) CAD (coronary artery disease) Qualifiers: Coronary Disease-Associated Artery/Lesion type: [place] artery [place] vs. transplanted heart: [place] heart Associated angina: without angina Qualified Code(s): I25.10 - Atherosclerotic heart disease of [place] coronary artery without angina pectoris (7) Acute on chronic kidney failure Qualifiers: Acute renal failure type: unspecified Chronic kidney disease stage: stage 3 (moderate) Qualified Code(s): N17.9 - Acute kidney failure, unspecified; N18.3 - Chronic kidney disease, stage 3 (moderate)
[2018-08-13] MEDS: Lactulose Oral Soln 20 GM/30 ML UDC PO SCH ×2 (11:51→20:25)
[2018-08-13] MEDS ORDERED: Furosemide 20 MG TABLET PO PRN (12:10)
[2018-08-13] MEDS: *HR* HYDROcodone/Acet 5/325 mg TABLET PO PRN ×2 (12:42→20:25)
[2018-08-14 04:41] LABS: Hematocrit 34.3 % (35.3-44.9); Hemoglobin 11.4 g/dL (11.5-15.4); Mean Corpuscular HGB Conc 33.2 g/dL (31.6-35.5); Mean Corpuscular Hemoglobin 30.2 pg (28.0-33.3); Mean Platelet Volume 9.5 fL (9.4-12.4); Platelet Count 131 K/mcL (140-400); Red Blood Count 3.77 M/mcL (3.82-4.97); Red Cell Distribution Width 15.8 % (11.5-14.5); White Blood Count 13.7 K/mcL (4.3-11.1)
[2018-08-14 05:00] LABS: Albumin 2.2 g/dL (3.5-5.7); Calcium 8.4 mg/dL (8.6-10.3); Phosphorous 4.2 mg/dL (2.7-4.5); Potassium 4.3 mEq/L (3.5-5.1)
[2018-08-14 05:26] LABS: Eosinophils # 0.3 K/mcL (0.0-0.6); Lymphocytes # 0.3 K/mcL (0.6-4.6); Monocytes # 0.6 K/mcL (0.0-1.3); Neutrophils # 12.1 K/mcL (1.6-8.9); Platelet Estimate Slight Decrease (Normal); Toxic Granulation Present (Not Present)
[2018-08-14] MEDS: *HR* Heparin 5,000 UNIT/ML VIAL SQ SCH ×2 (05:38→16:57)
[2018-08-14] MEDS: cefTRIAXone 1,000 MG in Water for inj. (sterile) 10 ML IVP SCH (07:44)
[2018-08-14] MEDS: Aspirin Enteric Coated 81 MG Tablet PO SCH (07:45)
[2018-08-14] MEDS: Furosemide 20 MG TABLET PO SCH (07:45)
[2018-08-14] MEDS: Spironolactone 25 MG TABLET PO SCH (07:45)
[2018-08-14] MEDS: Lactulose Oral Soln 20 GM/30 ML UDC PO SCH ×2 (07:46→20:17)
[2018-08-14] MEDS: Vancomycin Oral Soln 125 MG/2.5 ML UDC PO SCH ×4 (07:46→20:18)
[2018-08-14] MEDS: *HR* HYDROcodone/Acet 5/325 mg TABLET PO PRN (07:49)
[2018-08-14] MEDS: traMADol 50 MG TABLET PO PRN (12:16)
--- NOTE | 2018-08-14 14:03 | Internal Med Progress Note ---
Hospitalist Progress Note - Encounter Date of Encounter: 08/14/18 Time of Encounter: 13:29 - Subjective Interval History: Pt states left shoulder hurts. reports history of left shoulder injury and screws in L shoulder. She denies fever, chills, N/V or diarrhea. she denies CP or SOB. - Exam Vitals: Temp Pulse Resp BP Pulse Ox 97.3 F L 68 18 115/68 95 08/14/18 11:51 08/14/18 11:51 08/14/18 11:51 08/14/18 11:51 08/14/18 11:51 Exam: General: Alert and oriented, not in acute distress. HEENT:EOMI, pupils equal, round and reactive. Cardiovascular: Normal S1 & S2, No JVD. Pulse regular. Lungs: clear to auscultation, no wheezes/rales Abdomen: Soft, mildly distended and generalized tenderness in all quadrants but mild without rebound/guarding/rigidity Extremities: No joint swelling noted Neurological: Normal cognition and motor skills. Non-focal. No asterixis Skin: Normal color, no rash, no lesions. Pulses: Carotid and radial pulses normal +2. - Assessment and Plan (1) Severe sepsis Current Visit: Yes Status: Acute Assessment and Plan: Resolved Was diagnosed with C. diff 1 week ago but presented with persistent diarrhea and abdominal pain with CT scan showing pancolitis WBC 43, band 12%, lactic acid 3, and associated with Acute kidney injury on CKD. Hypotensive on presentation but pt is also on midodrine for chronic hypotension. Creatinine and lactic acid improved with IVF overnight. Noted slight drop in bi carb again 08/09/18 morning. Was on IVF with bicarb and potassium. IVF was discontinued and K supplement held. Continue PO Vancomycin PO. Follow up blood cultures showing E coli and Proteus mirabilis. Both above stated organism susceptible to Rocephine which was initiated yesterday. Surgery input appreciated and no acute surgical management at this time. WBC up from 12.7 to 13.7. Will recheck in am. Pt without complaint at this time Awaiting placement at SNF (2) C. difficile colitis Current Visit: Yes Status: Acute Assessment and Plan: continue PO Vanc D2. Pt continues to improve. Decreasing stool count. 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 Lactulose was on hold. concerned about bump in ammonia level but pt does not appear confused at this time. Lasix and Aldactone where held given severe sepsis and hypotension. BP up so will resume medications. Poor prognosis overall but per prior physician, pt wants to remain full code after discussing with pt and pt's (5) CREST (calcinosis, Raynaud's phenomenon, esophageal dysfunction, sclerodactyly, telangiectasia) Current Visit: No Status: Chronic Assessment and Plan: continue Cevimeline for Raynaud's (6) CAD (coronary artery disease) Current Visit: No Status: Chronic Assessment and Plan: Resume home meds. On ASA and statin beta satya held due to hypotension. BP back up so will resume Lasix at 20 mg PO QD (7) Acute on chronic kidney failure Current Visit: Yes Status: Acute Assessment and Plan: Likely pre-renal in the setting of C. diff colitis +/- ATN from sepsis Seen by nephrology and states okay to continue fluids but pt had Some crackles in her bases and increasing LE edema so fluids held and monitor labs. Retroperitoneum US reviewed. Urine culture showing E coli and Proteus Mirabilis. Both sensitive to Rocephine. Switched to Omnicef. US retroperitoneum US/US retroperitoneal comp IMPRESSION: 1. Unremarkable sonographic appearance of the kidneys. 2. Unremarkable sonographic appearance of the urinary bladder. Postvoid residual of 62 mL. 3. Incidental note of a large volume of intra-abdominal and pelvic ascites. D/ / 08/09/2018 16:22:47 Daria Norman / ana Interpreting Provider: Daria Norman (8) Hyponatremia Current Visit: Yes Status: Acute Assessment and Plan: Likley chronic hyponatremia. exacerbated by hypovolemic hyponatremia form diarrhea and dehydration. Na levels slowly improving but back on lasix so dropped from 129 to 127. Will continue to monitor. DVT Prophylaxis: SQ heparin. Will monitor Plt count given her cirrhosis - Summary of Assessment and Plan Summary of Assessment and Plan: History of present illness: Dr. Hess Ms. Tavares is a 68 year old female with history of Crest syndrome, cirrhosis, CAD s/p PCI, CKD, who presented to the ED with persistent diarrhea and abdominal pain. She states that she was diagnosed with C. diff early last week and, since she was on rifaximin, the dose was increased by her PCP. Unfortunately, her diarrhea and abdominal pain persisted hence she decided to come to the ED for further evaluation. Described as generalized, crampy pain, no aggravating/relieving factors, non radiating, associated with profuse diarrhea and intermittent nausea. Denies any melena, hematochezia, bright red blood per rectum. No fever/chills, dysuria, or urinary frequency. She denies any chest pain, shortness of breath, orthopnea, PND, or leg swelling. In the ED, she was noted to be hypotensive at 83/60, afebrile, and saturating well on room air. Labwork showed leukocytosis of 43 with 12% band, sodium of 122, creatinine 2.34 (baseline 1.5-6), and bicarb of 15. Lactic acid was also elevated at 3.1. CT Abdo pelvis showed pancolitis and cirrhosis with splenomegaly and ascites. She was given 2 L of IV fluid, started on PO vancomycin, and admitted for further management. - Time Spent with Patient Total time spent is greater than 50% in coordination of care (as documented) at patient's floor/unit and/or counseling patient: less than 15 minutes Plan of Care Discussed with: patient Internal Medicine: Result - Labs CBC & Chem 7: 08/14/18 04:00 08/14/18 04:00 Labs: Short CBC 08/14/18 Range/Units 04:00 WBC 13.7 H (4.3-11.1) K/mcL Hgb 11.4 L (11.5-15.4) g/dL Hct 34.3 L (35.3-44.9) % Plt Count 131 L (140-400) K/mcL Neutrophils # 12.1 H (1.6-8.9) K/mcL BMP 08/14/18 04:00 Sodium 127 L Potassium 4.3 Chloride 96 L Carbon Dioxide 21 L BUN 54 H Creatinine 1.60 H Glucose 93 Calcium 8.4 L Liver Function 08/14/18 Range/Units 04:00 Albumin 2.2 L (3.5-5.7) g/dL - ABG Interpretation ABG results: PT/INR, D-dimer PT 12.7 Seconds (9.4-12.1) H 08/12/18 03:00 Consult Discharge Plan - Plan Referrals: Yonathan James Jr, MD [Primary Care Provider] - 08/22/18 3:30 pm (3) Acute cystitis Qualifiers: Hematuria presence: with hematuria Qualified Code(s): N30.01 - Acute cystitis with hematuria (4) Cirrhosis Qualifiers: Hepatic cirrhosis type: unspecified hepatic cirrhosis Ascites presence: with ascites Qualified Code(s): K74.60 - Unspecified cirrhosis of liver; R18.8 - Other ascites (6) CAD (coronary artery disease) Qualifiers: Coronary Disease-Associated Artery/Lesion type: [place] artery [place] vs. transplanted heart: [place] heart Associated angina: without angina Qualified Code(s): I25.10 - Atherosclerotic heart disease of [place] coronary artery wit hout angina pectoris (7) Acute on chronic kidney failure Qualifiers: Acute renal failure type: unspecified Chronic kidney disease stage: stage 3 (moderate) Qualified Code(s): N17.9 - Acute kidney failure, unspecified; N18.3 - Chronic kidney disease, stage 3 (moderate)
[2018-08-15] MEDS: *HR* HYDROcodone/Acet 5/325 mg TABLET PO PRN (00:36)
[2018-08-15 02:39] LABS: Basophils % 0.3 %; Eosinophils # 0.1 K/mcL (0.0-0.6); Eosinophils % 1.2 %; Hematocrit 32.5 % (35.3-44.9); Hemoglobin 10.6 g/dL (11.5-15.4); Immature Granulocytes % 2.3 % (0-4); Lymphocytes # 0.8 K/mcL (0.6-4.6); Lymphocytes % 6.5 %; Mean Corpuscular HGB Conc 32.6 g/dL (31.6-35.5); Mean Corpuscular Hemoglobin 29.6 pg (28.0-33.3); Mean Corpuscular Volume 90.8 fL (83.0-100.0); Mean Platelet Volume 10.8 fL (9.4-12.4); Monocytes # 1.7 K/mcL (0.0-1.3); Monocytes % 14.3 %; Neutrophils # 8.7 K/mcL (1.6-8.9); Platelet Count 110 K/mcL (140-400); Red Blood Count 3.58 M/mcL (3.82-4.97); Red Cell Distribution Width 15.9 % (11.5-14.5); Segmented Neutrophils % 75.4 %; White Blood Count 11.6 K/mcL (4.3-11.1)
[2018-08-15] MEDS: *HR* Heparin 5,000 UNIT/ML VIAL SQ SCH ×2 (05:16→17:26)
[2018-08-15] MEDS: Lactulose Oral Soln 20 GM/30 ML UDC PO SCH (08:21)
[2018-08-15] MEDS: Aspirin Enteric Coated 81 MG Tablet PO SCH (08:22)
[2018-08-15] MEDS: Furosemide 20 MG TABLET PO SCH (08:22)
[2018-08-15] MEDS: Spironolactone 25 MG TABLET PO SCH (08:23)
[2018-08-15] MEDS: Vancomycin Oral Soln 125 MG/2.5 ML UDC PO SCH ×4 (08:23→20:18)
[2018-08-15] MEDS: cefTRIAXone 1,000 MG in Water for inj. (sterile) 10 ML IVP SCH (08:24)
--- NOTE | 2018-08-15 14:02 | Internal Med Progress Note ---
Hospitalist Progress Note - Encounter Date of Encounter: 08/15/18 Time of Encounter: 14:00 - Subjective Interval History: No acute events overnight - Exam Vitals: Temp Pulse Resp BP Pulse Ox 97.4 F L 72 18 117/77 97 08/15/18 11:32 08/15/18 11:32 08/15/18 11:32 08/15/18 11:32 08/15/18 11:32 Exam: General: Alert and oriented, not in acute distress. HEENT:EOMI, pupils equal, round and reactive. Cardiovascular: Normal S1 & S2, No JVD. Pulse regular. Lungs: clear to auscultation, no wheezes/rales Abdomen: Soft, mildly distended and generalized tenderness in all quadrants but mild without rebound/guarding/rigidity Extremities: No joint swelling noted Neurological: Normal cognition and motor skills. Non-focal. No asterixis Skin: Normal color, no rash, no lesions. Pulses: Carotid and radial pulses normal +2. - Assessment and Plan (1) Severe sepsis Current Visit: Yes Status: Acute Assessment and Plan: Was diagnosed with C. diff 1 week ago but presented with persistent diarrhea and abdominal pain with CT scan showing pancolitis WBC 43, band 12%, lactic acid 3, and associated with Acute kidney injury on CKD. No surgical intervention for colitis per surgery Still has multiple loose stools may be secondary to c diff vs lactulose Will hold lactulose. ID recs appreciated for antibiotic management (2) C. difficile colitis Current Visit: Yes Status: Acute Assessment and Plan: continue po vancomycin. Still has multiple loose stools which may be secondary to the fact that patient is on lactulose and rifaximin as well Will hold lactulose. 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 Lactulose was on hold. concerned about bump in ammonia level but pt does not appear confused at this time. Continue lasix and spironolactone (4) CREST (calcinosis, Raynaud's phenomenon, esophageal dysfunction, sclerodactyly, telangiectasia) Current Visit: Yes Status: Chronic Assessment and Plan: continue Cevimeline for Raynaud's (5) CAD (coronary artery disease) Current Visit: Yes Status: Chronic Assessment and Plan: Resume home meds. On ASA and statin beta satya held due to hypotension. BP back up so will resume Lasix at 20 mg PO QD (6) Acute on chronic kidney failure Current Visit: Yes Status: Acute Assessment and Plan: Likely pre-renal in the setting of C. diff colitis Seen by nephrology and states okay to continue fluids but pt had Some crackles in her bases and increasing LE edema so fluids held and monitor labs. Retroperitoneum US reviewed. Urine culture showing E coli and Proteus Mirabilis. Both sensitive to Rocephine. Switched to Omnicef. (7) Hyponatremia Current Visit: Yes Status: Acute Assessment and Plan: [place] chronic hyponatremia. exacerbated by hypovolemic hyponatremia form diarrhea and dehydration. Na levels slowly improving but back on lasix so dropped from 129 to 127. Will continue to monitor. (8) Acute cystitis Current Visit: Yes Status: Acute Assessment and Plan: Ecoli and Proteus on Rocephin DVT Prophylaxis: Heparin sc - Time Spent with Patient Total time spent is greater than 50% in coordination of care (as documented) at patient's floor/unit and/or counseling patient: Internal Medicine: Result - Labs CBC & Chem 7: 08/15/18 02:00 08/14/18 04:00 Labs: Short CBC 08/15/18 Range/Units 02:00 WBC 11.6 H (4.3-11.1) K/mcL Hgb 10.6 L (11.5-15.4) g/dL Hct 32.5 L (35.3-44.9) % Plt Count 110 L (140-400) K/mcL Neutrophils # 8.7 (1.6-8.9) K/mcL - ABG Interpretation ABG results: PT/INR, D-dimer PT 12.7 Seconds (9.4-12.1) H 08/12/18 03:00 Consult Discharge Plan - Plan Referrals: Yonathan James Jr, MD [Primary Care Provider] - 08/22/18 3:30 pm (3) Cirrhosis Qualifiers: Hepatic cirrhosis type: unspecified hepatic cirrhosis Ascites presence: with ascites Qualified Code(s): K74.60 - Unspecified cirrhosis of liver; R18.8 - Other ascites (5) CAD (coronary artery disease) Qualifiers: Coronary Disease-Associated Artery/Lesion type: [place] artery [place] vs. transplanted heart: [place] heart Associated angina: without angina Qualified Code(s): I25.10 - Atherosclerotic heart disease of [place] coronary artery without angina pectoris (6) Acute on chronic kidney failure Qualifiers: Acute renal failure type: unspecified Chronic kidney disease stage: stage 3 (moderate) Qualified Code(s): N17.9 - Acute kidney failure, unspecified; N18.3 - Chronic kidney disease, stage 3 (moderate) (8) Acute cystitis Qualifiers: Hematuria presence: with hematuria Qualified Code(s): N30.01 - Acute cystitis with hematuria
--- NOTE | 2018-08-15 16:29 | Infectious Disease Consult ---
Infectious Disease-Consult - Encounter Date/Time Date of Encounter: 08/15/18 Time of Encounter: 16:23 - Data of Consult Patient: new to practice Reason for consult: "c diff colitis with continued loose stools for dose and duration of po vnac. (she is on lactulose and rifaximin for cirrhosis)" Consult date: 08/15/18 Requesting Physician: Dirk Hess MD Primary Care Provider: Yonathan James Jr, MD - HPI HPI: Ms. Tavares is a 68-year-old female with past medical history of crest syndrome, nonalcoholic cirrhosis, CAD, GERD, hyperlipidemia, CAD status post PCI with stents, and chronic kidney disease. The patient was admitted to the hospital 08/08/18 for C. difficile. We are consulted 08/15/18 for further workup and treatment recommendations for C. difficile. Briefly, the patient is a 68-year-old female with past medical history as stated above. The patient presented to the emergency department with a 3 week history of abdominal pain and profuse watery diarrhea. About a week prior to presentation, she had been diagnosed with C. difficile per her PCP. She is on chronic Xifaxan for her liver cirrhosis and her PCP attempted to treat her C. difficile by titrating that medication. Apparently, the patient continued to have profuse watery diarrhea and presented to the ER for evaluation. Upon arrival, she was afebrile. She was not tachycardic, but she was hypotensive and had leukocytosis with bandemia. She had an acute kidney injury with lactic acidosis. Urinalysis appeared contaminated, but was sent for culture growing Escherichia coli and Proteus mirabilis. Lipase was normal. She has CT abdomen and pelvis that showed nonspecific pancolitis and cirrhosis with splenomegaly, ascites, and collateral vessels in the upper abdomen. Blood cultures were obtained 2 sets. She was started on oral vancomycin and admitted to the hospital for further evaluation and treatment. Shortly after admission, the acute care surgery team was consulted who did not recommend any surgical intervention. She had a retroperitoneal ultrasound that was negative for any bladder or kidney abnormalities, but did show large volume ascites. Her lactic acid did improve. Repeat stool was sent for C. difficile and was positive for PCR and EIA. Blood cultures obtained in the emergency department came back +1 out of 2 sets for staph species. The PCR. Repeat blood cultures on 08/09/18 are negative 2 sets. Nephrology was consulted to assist with her acute kidney injury and they have signed off. She did undergo a therapeutic paracentesis that yielded about 360 mL's of serous ascites fluid. On 08/12/18, the patient was noted to have an elevated ammonia level. On 08/13/18 that was resolved. Today, her WBC is 11.6. She has been afebrile. She has not had any tachycardia. Her blood pressure stable. Currently, she is on IV Rocephin and oral vancomycin. We have been asked to evaluate and make further recommendations. During my exam today, the patient states that she continues to have heart amounts of profuse watery diarrhea. She states that it does not seem to be more formed or less frequent. She states her abdominal pain is better. She denies fevers, chills, rigors. States she does feel weak and tired, but is feeling a little bit better since admission. Denies chest pain, shortness of breath, or cough. Denies nausea, vomiting, or constipation. Denies urinary complaints including dysuria or urinary frequency. Denies oral thrush or skin rashes. The patient lives at home with her . She does not work outside the home. She denies tobacco, alcohol, or illicit drug use. Denies chronic infectious diseases. Denies recent hospitalizations or antibiotic use. - ROS Review of Systems: All systems reviewed and no additional remarkable complaints except as stated. - Results CBC & Chem 7: 08/16/18 03:10 08/16/18 03:10 - Exam Vitals: Temp Pulse Resp BP Pulse Ox 97.4 F L 72 18 117/77 97 08/15/18 11:32 08/15/18 11:32 08/15/18 11:32 08/15/18 11:32 08/15/18 11:32 Exam: Head: Atraumatic, normal inspection, normocephalic. Eye: EOMI, PERRLA, no scleral icterus noted. ENT: Mucous membranes moist. No odontogenic infection noted. Poor dentition noted. Neck: Normal inspection, no meningismus. Respiratory: Clear to auscultation. No rales, respiratory distress, rhonchi, or wheezes noted. Cardiovascular: Regular rate and rhythm, S1 and S2 audible. No murmurs, rubs, or gallops. GI: Soft, nondistended, normal bowel sounds. Nontender. Extremities:No joint swelling or tenderness noted. 1+ edema noted to the bilateral lower extremities. Back: Normal inspection. No vertebral tenderness noted. Neurological: Alert, oriented 3, no focal deficits. Psychiatric: normal affect, normal mood. Skin: Dry, intact, warm. Normal color. No rashes. Cevimeline HCl [Evoxac] 90 mg PO HS 01/02/15 [History] Doxepin HCl 30 mg PO HS 01/02/15 [History] Sildenafil Citrate [Revatio] 20 mg PO 3-4XD PRN 01/02/15 [History] Aspirin [Lo-Dose Aspirin EC] 81 mg PO 1200 08/08/18 [History] Atorvastatin [Lipitor] 40 mg PO 1200 08/08/18 [History] Calcium Carbonate/Vitamin D3 [Calcium 500 mg-Vit D3 600 Unit] 1 tab PO BID 08/08/18 [History] Ergocalciferol (VITAMIN D2) [Vitamin D2] 50,000 units PO MO 08/08/18 [History] Ferrous Sulfate 325 mg PO 1200 08/08/18 [History] Furosemide [Lasix] 40 mg PO QAM 08/08/18 [History] Lactulose [Enulose] 10 gm PO BID MDD 40GM 08/08/18 [History] Metoprolol Succinate [Toprol Xl] 50 mg PO BID 08/08/18 [History] Midodrine [ProAmatine] 5 mg PO TID 08/08/18 [History] Pantoprazole Sodium [Protonix] 40 mg PO QPM 08/08/18 [History] Rifaximin [Xifaxan] 550 mg PO BID 08/08/18 [History] Spironolactone [Aldactone] 25 mg PO 1200 08/08/18 [History] Tramadol HCl [Ultram] 50 mg PO Q8H PRN 08/08/18 [History] Lactobacillus [Culturelle] 2 each PO DAILY #30 cap.sprink 08/16/18 [Rx] Sodium Bicarbonate 650 mg PO TID #60 tablet 08/16/18 [Rx] Sodium Chloride [Sodium Chloride Tab] 1 gm PO TID #60 tablet 08/16/18 [Rx] Vancomycin Oral Soln [Firvanq] 125 mg PO QID 7 Days #28 udc 08/16/18 [Rx] Allergy/AdvReac Type Severity Reaction Status Date / Time codeine Allergy Mild Nausea Verified 08/08/18 16:46 - Assessment and Plan (1) Severe sepsis Status: Acute The patient had 2 sepsis criteria plus hypotension, acute kidney injury, lactic acidosis on admission. Likely secondary to C. difficile colitis. Improved. WBC trending down. Tachycardia resolved. Blood pressure stable. Blood cultures drawn 08/08/18 are +1 out of 2 sets for staph species per the PCR. Repeat blood cultures from 08/09/18 are negative 2 sets. SNOMED Code(s): 39909172 (2) Bacteremia Status: Acute Blood cultures drawn 08/08/18 are +1 out of 2 sets for staph species per the PCR. Repeat blood cultures on 08/09/18 are negative 2 sets. According to nursing notes, microbiology unable to locate the plates to get a final ID or sensitivity. Likely contaminant. No further workup or treatment required. SNOMED Code(s): 6652766 (3) C. difficile colitis Status: Acute Diagnosed with C. difficile about a week prior to presentation. Failed treatment with oral Xifaxan. Severe on admission, but no toxic megacolon or ileus noted. CT of the abdomen and pelvis 08/08/18 showed nonspecific pancolitis. C. difficile PCR and EIA positive. Clinical picture consistent with C. difficile. Clinically, the patient's numbers have improved, however, her diarrhea has not. I anticipate that some of her other medications may be contributing to the diarrhea that she is having at this point (lactulose + Rocephin). Currently on PO Vancomycin SNOMED Code(s): 933593699 (4) KATHY (acute kidney injury) Status: Resolved Likely secondary to sepsis and dehydration from diarrhea. Improved. Retroperitoneal ultrasound negative. Nephrology consult and signed off. Continue to trend. Dose adjust antibiotics and avoid nephrotoxins as able. SNOMED Code(s): 59983428, 61709837 (5) Lactic acidosis Status: Resolved Likely secondary to sepsis. Resolved. SNOMED Code(s): 35475943 (6) Asymptomatic bacteriuria Status: Acute Urine culture positive for Proteus mirabilis and Escherichia coli. The patient denied any specific urinary complaints on admission. Not sure that this was contributing to the patient's sepsis or clinical picture. Currently on day 6 of IV Rocephin. SNOMED Code(s): 456628431 (7) Hyponatremia Status: Acute SNOMED Code(s): 07601492 (8) Ascites Status: Chronic Noted on CT of the abdomen and pelvis and ultrasound. Status post therapeutic paracentesis 08/11/18. No fluid sent for culture for analysis. Qualifiers: Ascites type: other type Qualified Code(s): R18.8 - Other ascites SNOMED Code(s): 641530175 (9) Cirrhosis Status: Chronic Nonalcoholic liver cirrhosis. Follows with hepatology at [facility]. MELD score 21. Qualifiers: Hepatic cirrhosis type: unspecified hepatic cirrhosis Ascites presence: with ascites Qualified Code(s): K74.60 - Unspecified cirrhosis of liver; R18.8 - Other ascites SNOMED Code(s): 18896343 (10) CREST (calcinosis, Raynaud's phenomenon, esophageal dysfunction, sclerodactyly, telangiectasia) Status: Chronic SNOMED Code(s): 14342750 (11) CAD (coronary artery disease) Status: Chronic Qualifiers: Coronary Disease-Associated Artery/Lesion type: [place] artery [place] vs. transplanted heart: [place] heart Associated angina: without angina Qualified Code(s): I25.10 - Atherosclerotic heart disease of [place] coronary artery without angina pectoris SNOMED Code(s): 25897687 (12) Atrial fibrillation Status: Chronic Qualifiers: Atrial fibrillation type: unspecified Qualified Code(s): I48.91 - Unspecified atrial fibrillation SNOMED Code(s): 50824648 (13) CKD (chronic kidney disease), stage IV Status: Chronic SNOMED Code(s): 435616773 - Recommendations Recommendations: Continue to trend CBC. Consider GI to evaluate to assist with management of the patient's diarrhea as I am not sure that the C. difficile is what is causing her diarrhea at this point. She was previously on lactulose which could be contributing as well as other antibiotics. Discontinue Rocephin. She has completed 6 days of treatment which is likely adequate for uncomplicated UTI. However, the patient did not endorse any urinary symptoms on admission so I find it unlikely that this was contributing to her clinical picture. Continue vancomycin 125 mg by mouth 4 times a day (day 8). Start probiotics. Duration of treatment depends on the clinical picture, but likely a total of 14 days. Monitor renal function and dose adjust medications. C. difficile precautions per hospital policy. Past Med Surg Social Fam HX - Past Medical History Attestation: Yes The following information was validated with the patient. Source: patient, old records reviewed, nursing notes reviewed Medical history: cirrhosis, coronary artery disease, GERD, hyperlipidemia, myocardial infarction, renal disease, other Additional medical history: Crest syndrome Psychiatric history: no psych history - Past Surgical History Surgical History: angioplasty/stent, cholecystectomy, hysterectomy, other Additional surgical history: Heart Stents x 8 - Social History Smoking Status: Never smoker Smokeless Tobacco Status: No Alcohol use: none Drug use: none Occupational status: unemployed Current living situation: Home, With Family Activity Level: Independent ambulation Recent Out of Country Travel Within the Last 8 Weeks: No Exposure or Possible Exposure to Illness During Travel: No - Family History Father Hx Family Cardiac Disorders: Yes Consult Discharge Plan - Plan Instructions: Sepsis (DC) Referrals: Yonathan James Jr, MD [Primary Care Provider] - (Patient is going to [facility] no PCP appointment needed) Prescriptions: Lactobacillus [Culturelle] 2 each PO DAILY #30 cap.sprink Vancomycin Oral Soln [Firvanq] 125 mg PO QID 7 Days #28 udc Sodium Bicarbonate 650 mg PO TID #60 tablet Sodium Chloride [Sodium Chloride Tab] 1 gm PO TID #60 tablet - Attending Attestation I have personally performed a face to face evaluation on this patient. I have reviewed and agree with the care plan. History and Exam by me shows: This is an addendum to original report dictated by Opal Grewal CNP. Please refer to Opal's note for full detail. Patient is a 68-year-old woman with past medical history mentioned below presented with severe sepsis secondary to C. difficile colitis with dehydration and acute kidney injury. Patient also had positive blood culture 1 out of 2 staph species which is a contaminant Assessment and plan: 1.Severe sepsis 2.C. difficile colitis 3.Acute kidney injury 4.End-stage liver disease with a meld score of 21 5.Crest syndrome Recommendations: Continue to trend CBC. Consider GI to evaluate to assist with management of the patient's diarrhea as I am not sure that the C. difficile is what is causing her diarrhea at this point. She was previously on lactulose which could be contributing as well as other antibiotics. Discontinue Rocephin. She has completed 6 days of treatment which is likely adequate for uncomplicated UTI. However, the patient did not endorse any urinary symptoms on admission so I find it unlikely that this was contributing to her clinical picture. Continue vancomycin 125 mg by mouth 4 times a day (day 8). Start probiotics. Duration of treatment depends on the clinical picture, but likely a total of 14 days. Monitor renal function and dose adjust medications. C. difficile precautions per hospital policy.
[2018-08-15] MEDS: Lactobacillus 1 EACH CAP.SPRINK PO SCH (17:49)
[2018-08-15] MEDS: traMADol 50 MG TABLET PO PRN (20:23)
[2018-08-16 03:33] LABS: Basophils % 0.3 %; Eosinophils # 0.1 K/mcL (0.0-0.6); Eosinophils % 0.5 %; Hematocrit 32.2 % (35.3-44.9); Hemoglobin 10.5 g/dL (11.5-15.4); Immature Granulocytes % 2.8 % (0-4); Immature Platelets 2.6 % (1.1-6.1); Lymphocytes # 0.6 K/mcL (0.6-4.6); Lymphocytes % 6.3 %; Mean Corpuscular HGB Conc 32.6 g/dL (31.6-35.5); Mean Corpuscular Hemoglobin 29.7 pg (28.0-33.3); Mean Platelet Volume 10.1 fL (9.4-12.4); Monocytes # 1.8 K/mcL (0.0-1.3); Monocytes % 18.4 %; Neutrophils # 6.9 K/mcL (1.6-8.9); Red Blood Count 3.54 M/mcL (3.82-4.97); Red Cell Distribution Width 16.1 % (11.5-14.5); Segmented Neutrophils % 71.7 %; White Blood Count 9.6 K/mcL (4.3-11.1)
[2018-08-16 03:55] LABS: Calcium 7.9 mg/dL (8.6-10.3); Magnesium 1.9 mg/dL (1.6-2.6); Phosphorous 3.4 mg/dL (2.7-4.5); Potassium 4.2 mEq/L (3.5-5.1)
[2018-08-16 03:58] LABS: Platelet Count 91 K/mcL (140-400); Platelet Estimate Normal (Normal)
[2018-08-16] MEDS: *HR* HYDROcodone/Acet 5/325 mg TABLET PO PRN (04:11)
[2018-08-16] MEDS: *HR* Heparin 5,000 UNIT/ML VIAL SQ SCH (05:05)
[2018-08-16] MEDS ORDERED: Furosemide 20 MG/2 ML VIAL IVP SCH (09:00)
[2018-08-16] MEDS: Aspirin Enteric Coated 81 MG Tablet PO SCH (09:05)
[2018-08-16] MEDS: Spironolactone 25 MG TABLET PO SCH (09:06)
[2018-08-16] MEDS: Lactobacillus 1 EACH CAP.SPRINK PO SCH (09:06)
[2018-08-16] MEDS: Vancomycin Oral Soln 125 MG/2.5 ML UDC PO SCH ×2 (09:07→13:21)
--- NOTE | 2018-08-16 10:35 | Infectious Disease Progress No ---
ID Progress Note Date of Encounter: 08/16/18 Time of Encounter: 10:33 - Subjective Subjective: Patient seen and examined. No acute events noted overnight. Patient states she feels tired today, but states her diarrhea is better. Reports one loose stool overnight and one so far this morning. Denies fevers, chills, rigors. Denies chest pain, shortness of breath, or cough. Denies nausea, vomiting, or constipation. Denies abdominal pain or urinary complaints. Denies oral thrush or skin rashes. States her appetite is okay. - Objective CBC & Chem 7: 08/16/18 03:10 08/16/18 03:10 - Exam Vitals: Temp Pulse Resp BP Pulse Ox 98.3 F 64 16 135/85 96 08/16/18 07:00 08/16/18 08:00 08/16/18 07:00 08/16/18 07:00 08/16/18 07:00 Exam: Head: Atraumatic, normal inspection, normocephalic. Eye: EOMI, PERRLA, no scleral icterus noted. ENT: Mucous membranes moist. No odontogenic infection noted. Poor dentition noted. Neck: Normal inspection, no meningismus. Respiratory: Clear to auscultation. No rales, respiratory distress, rhonchi, or wheezes noted. Cardiovascular: Regular rate and rhythm, S1 and S2 audible. No murmurs, rubs, or gallops. GI: Soft, nondistended, normal bowel sounds. Nontender. Extremities:No joint swelling or tenderness noted. 2+ edema noted to the bilateral lower extremities. Neurological: Alert, oriented 3, no focal deficits. Psychiatric: normal affect, normal mood. Skin: Dry, intact, warm. Normal color. No rashes. - Assessment and Plan (1) Severe sepsis Status: Acute The patient had 2 sepsis criteria plus hypotension, acute kidney injury, lactic acidosis on admission. Likely secondary to C. difficile colitis. Improved. WBC normal. Tachycardia resolved. Blood pressure stable. Blood cultures drawn 08/08/18 are +1 out of 2 sets for staph species per the PCR. Repeat blood cultures from 08/09/18 are negative 2 sets. SNOMED Code(s): 62820164 (2) Bacteremia Status: Acute Blood cultures drawn 08/08/18 are +1 out of 2 sets for staph species per the PCR. Repeat blood cultures on 08/09/18 are negative 2 sets. According to nursing notes, microbiology unable to locate the plates to get a final ID or sensitivity. Likely contaminant. No further workup or treatment required. SNOMED Code(s): 6068619 (3) C. difficile colitis Status: Acute Diagnosed with C. difficile about a week prior to presentation. Failed treatment with oral Xifaxan. Severe on admission, but no toxic megacolon or ileus noted. CT of the abdomen and pelvis 08/08/18 showed nonspecific pancolitis. C. difficile PCR and EIA positive. Clinical picture consistent with C. difficile. Persistent diarrhea likely secondary to other medications (Rocephin, lactulose) as the patient's clinical picture had otherwise improved. Her diarrhea has also improved since those medications were discontinued. Currently on PO Vancomycin SNOMED Code(s): 373775188 (4) KATHY (acute kidney injury) Status: Resolved Likely secondary to sepsis and dehydration from diarrhea. Improved. Retroperitoneal ultrasound negative. Nephrology consult and signed off. Continue to trend. Dose adjust antibiotics and avoid nephrotoxins as able. SNOMED Code(s): 55563271, 40104908 (5) Lactic acidosis Status: Resolved Likely secondary to sepsis. Resolved. SNOMED Code(s): 53071330 (6) Asymptomatic bacteriuria Status: Acute Urine culture positive for Proteus mirabilis and Escherichia coli. The patient denied any specific urinary complaints on admission. Not sure that this was contributing to the patient's sepsis or clinical picture. Completed 6 days of IV Rocephin. SNOMED Code(s): 800590784 (7) Hyponatremia Status: Acute SNOMED Code(s): 27112668 (8) Ascites Status: Chronic Noted on CT of the abdomen and pelvis and ultrasound. Status post therapeutic paracentesis 08/11/18. No fluid sent for culture for analysis. Qualifiers: Ascites type: other type Qualified Code(s): R18.8 - Other ascites SNOMED Code(s): 067204546 (9) Cirrhosis Status: Chronic Nonalcoholic liver cirrhosis. Follows with hepatology at [facility]. MELD score 21. Qualifiers: Hepatic cirrhosis type: unspecified hepatic cirrhosis Ascites presence: with ascites Qualified Code(s): K74.60 - Unspecified cirrhosis of liver; R18.8 - Other ascites SNOMED Code(s): 42162733 (10) CREST (calcinosis, Raynaud's phenomenon, esophageal dysfunction, sclerodactyly, telangiectasia) Status: Chronic Follows with [facility] design checker in [place]. SNOMED Code(s): 23928299 (11) CAD (coronary artery disease) Status: Chronic Qualifiers: Coronary Disease-Associated Artery/Lesion type: [place] artery [place] vs. transplanted heart: [place] heart Associated angina: without angina Qualified Code(s): I25.10 - Atherosclerotic heart disease of [place] coronary artery without angina pectoris SNOMED Code(s): 07910546 (12) Atrial fibrillation Status: Chronic Qualifiers: Atrial fibrillation type: unspecified Qualified Code(s): I48.91 - Unspecified atrial fibrillation SNOMED Code(s): 45538923 (13) CKD (chronic kidney disease), stage IV Status: Chronic SNOMED Code(s): 671597603 - Recommendations Recommendations: Continue vancomycin 125 mg by mouth 4 times a day (day 9). Continue probiotics. Duration of treatment depends on the clinical picture, but likely a total of 14 days. Treat 37. Monitor renal function and dose adjust medications. C. difficile precautions per hospital policy. Consult Discharge Plan - Plan Instructions: Sepsis (DC) Referrals: Yonathan James Jr, MD [Primary Care Provider] - (Patient is going to [facility] no PCP appointment needed) Prescriptions: Lactobacillus [Culturelle] 2 each PO DAILY #30 cap.sprink Vancomycin Oral Soln [Firvanq] 125 mg PO QID 7 Days #28 udc Sodium Bicarbonate 650 mg PO TID #60 tablet Sodium Chloride [Sodium Chloride Tab] 1 gm PO TID #60 tablet - Attending Attestation I have personally performed a face to face evaluation on this patient. I have reviewed and agree with the care plan. History and Exam by me shows: Assessment and plan: 1.Severe sepsis 2.C. difficile colitis 3.Acute kidney injury 4.End-stage liver disease with a meld score of 21 5.Crest syndrome Recommendations: Continue vancomycin 125 mg by mouth 4 times a day (day 9). Continue probiotics. Duration of treatment depends on the clinical picture, but likely a total of 14 days. Treat . Monitor renal function and dose adjust medications. C. difficile precautions per hospital policy.
--- NOTE | 2018-08-16 11:26 | Discharge Summary ---
Date of Encounter: 08/16/18 Time of Encounter: 14:00 - Discharge Diagnosis (1) Severe sepsis Priority: Primary Status: Acute Assessment and Plan: 68 year old female with history of Crest syndrome, cirrhosis, CAD s/p PCI, CKD, who presented to the ED with persistent diarrhea and abdominal pain. She states that she was diagnosed with C. diff early last week and, since she was on rifaximin, the dose was increased by her PCP. Unfortunately, her diarrhea and abdominal pain persisted hence she decided to come to the ED for further evaluation. Described as generalized, crampy pain, no aggravating/relieving factors, non radiating, associated with profuse diarrhea and intermittent nausea. She was assessed with severe sepsis secondary to c diff with bailey colitis which had failed outpatient therapy. . She was seen by surgery and was deemed to not need any acute surgical intervention. She improved on po vancomycin and will complete a 2 week course total. She also had ascites with decompensated liver cirrhosis for which she had a paracentesis while she was here. She initially continue to have multiple loose stools on po vanc, but once lactulose was held her diarrhea resolved. She will continue lactulose as needed. She was also discharged on sodium tablets for hyponatremia. 35 minutes was spent discharging this patient (2) C. difficile colitis Priority: Primary Status: Acute (3) Cirrhosis Priority: Primary Status: Chronic Qualifiers: Hepatic cirrhosis type: unspecified hepatic cirrhosis Ascites presence: with ascites Qualified Code(s): K74.60 - Unspecified cirrhosis of liver; R18.8 - Other ascites (4) CREST (calcinosis, Raynaud's phenomenon, esophageal dysfunction, sclerodactyly, telangiectasia) Priority: Primary Status: Chronic (5) CAD (coronary artery disease) Priority: Primary Status: Chronic Qualifiers: Coronary Disease-Associated Artery/Lesion type: [place] artery [place] vs. transplanted heart: [place] heart Associated angina: without angina Qualified Code(s): I25.10 - Atherosclerotic heart disease of [place] coronary artery without angina pectoris (6) Acute on chronic kidney failure Priority: Primary Status: Acute Qualifiers: Acute renal failure type: unspecified Chronic kidney disease stage: stage 3 (moderate) Qualified Code(s): N17.9 - Acute kidney failure, unspecified; N18.3 - Chronic kidney disease, stage 3 (moderate) (7) Hyponatremia Priority: Primary Status: Acute (8) Acute cystitis Priority: Primary Status: Acute Qualifiers: Hematuria presence: with hematuria Qualified Code(s): N30.01 - Acute cystitis with hematuria Hospital course: Ms. Tavares is a 68 year old female - Time Spent with Patient Total time spent providing and/or coordinating discharge services: - Discharge Medications Prescriptions: New Lactobacillus [Culturelle] 2 each PO DAILY #30 cap.sprink Vancomycin Oral Soln [Firvanq] 125 mg PO QID 7 Days #28 udc Sodium Bicarbonate 650 mg PO TID #60 tablet Sodium Chloride [Sodium Chloride Tab] 1 gm PO TID #60 tablet Continued Sildenafil Citrate [Revatio] 20 mg PO 3-4XD PRN PRN Reason: Blood Pressure - High Doxepin HCl 30 mg PO HS Cevimeline HCl [Evoxac] 90 mg PO HS Aspirin [Lo-Dose Aspirin EC] 81 mg PO 1200 Atorvastatin [Lipitor] 40 mg PO 1200 Calcium Carbonate/Vitamin D3 [Calcium 500 mg-Vit D3 600 Unit] 1 tab PO BID Ergocalciferol (VITAMIN D2) [Vitamin D2] 50,000 units PO MO Ferrous Sulfate 325 mg PO 1200 Lactulose [Enulose] 10 gm PO BID MDD 40GM Metoprolol Succinate [Toprol Xl] 50 mg PO BID Midodrine [ProAmatine] 5 mg PO TID Pantoprazole Sodium [Protonix] 40 mg PO QPM Rifaximin [Xifaxan] 550 mg PO BID Tramadol HCl [Ultram] 50 mg PO Q8H PRN PRN Reason: Pain Furosemide [Lasix] 40 mg PO QAM Spironolactone [Aldactone] 25 mg PO 1200 Home Medications: Cevimeline HCl [Evoxac] 90 mg PO HS 01/02/15 [History] Doxepin HCl 30 mg PO HS 01/02/15 [History] Sildenafil Citrate [Revatio] 20 mg PO 3-4XD PRN 01/02/15 [History] Aspirin [Lo-Dose Aspirin EC] 81 mg PO 1200 08/08/18 [History] Atorvastatin [Lipitor] 40 mg PO 1200 08/08/18 [History] Calcium Carbonate/Vitamin D3 [Calcium 500 mg-Vit D3 600 Unit] 1 tab PO BID 08/08/18 [History] Ergocalciferol (VITAMIN D2) [Vitamin D2] 50,000 units PO MO 06/24/19 [History] Ferrous Sulfate 325 mg PO 1200 08/08/18 [History] Furosemide [Lasix] 40 mg PO QAM 08/08/18 [History] Lactulose [Enulose] 10 gm PO BID MDD 40GM 08/08/18 [History] Metoprolol Succinate [Toprol Xl] 50 mg PO BID 08/08/18 [History] Midodrine [ProAmatine] 5 mg PO TID 08/08/18 [History] Pantoprazole Sodium [Protonix] 40 mg PO QPM 08/08/18 [History] Rifaximin [Xifaxan] 550 mg PO BID 08/08/18 [History] Spironolactone [Aldactone] 25 mg PO 1200 08/08/18 [History] Tramadol HCl [Ultram] 50 mg PO Q8H PRN 08/08/18 [History] Lactobacillus [Culturelle] 2 each PO DAILY #30 cap.sprink 08/16/18 [Rx] Sodium Bicarbonate 650 mg PO TID #60 tablet 08/16/18 [Rx] Sodium Chloride [Sodium Chloride Tab] 1 gm PO TID #60 tablet 08/16/18 [Rx] Vancomycin Oral Soln [Firvanq] 125 mg PO QID 7 Days #28 udc 08/16/18 [Rx] Allergies/Adverse Reactions: Allergy/AdvReac Type Severity Reaction Status Date / Time codeine Allergy Mild Nausea Verified 08/08/18 16:46 Date of admission: 08/08/18 17:55 Primary care physician: Yonathan James Jr, MD Consults: 08/08/18 16:21 Consult to Surgery [CONS] Routine Consulting Provider: Acute Care Surgery Reason for Consult: fulminant C. diff colitis Call Completed: Yes 08/09/18 09:10 Consult to Invasive Line Access Team [CONS] Routine Reason for Consult: limited vascular access Line Type: EPIV 08/10/18 11:10 Consult to Nephrology [CONS] Routine Consulting Provider: [facility] [place]/SALO/EDEN/RHIANNON Reason for Consult: acute kidney injury Call Completed: Yes 08/10/18 17:43 Consult to Interventional Radiology [CONS] Routine Consulting Provider: Radiology Interventional [place]s Reason for Consult: ultrasound guided paracenthesis Call Completed: No 08/12/18 12:22 Consult to Physical Therapy [CONS] Routine Comment: Evaluate, develop and implement POC Reason for Consult: Deocnditoining Does patient have active BEDREST order?: No Is patient medically & hemodynamically stable?: Yes Patient assessed for mobility or mobilized this visit?: No 08/12/18 12:23 OT [Consult to Occupational Therapy] [CONS] Routine Comment: Evaluate, develop and implement POC Reason for Consult: deconditoning Does patient have active BEDREST order?: No Is patient medically & hemodynamically stable?: Yes Patient assessed for mobility or mobilized this visit?: No 08/15/18 07:46 Consult to Security Incident Handler [CONS] Routine Reason for SW Consult: inpatient rehab 08/15/18 12:44 Consult to Infectious Diseases [CONS] Routine Consulting Provider: Infectious [facility] [place] Reason for Consult: c diff colitis with continued loose stools for dose and duration of po vnac. (she is on lactulose and rifaximin for cirrhosis) Call Completed: No - Constitutional Vitals: Temp Pulse Resp BP Pulse Ox 98.3 F 64 16 135/85 96 08/16/18 07:00 08/16/18 08:00 08/16/18 07:00 08/16/18 07:00 08/16/18 07:00 Exam: General: Alert and oriented, not in acute distress. HEENT:EOMI, pupils equal, round and reactive. Cardiovascular: Normal S1 & S2, No JVD. Pulse regular. Lungs: clear to auscultation, no wheezes/rales Abdomen: Soft, mildly distended and generalized tenderness in all quadrants but mild without rebound/guarding/rigidity Extremities: No joint swelling noted Neurological: Normal cognition and motor skills. Non-focal. No asterixis Skin: Normal color, no rash, no lesions. Pulses: Carotid and radial pulses normal +2. - Patient Status Disposition: Transfer Inpatient Rehab Fac Condition: Fair - Discharge Instructions Instructions: Sepsis (DC) Follow Up With: Yonathan James Jr, MD [Primary Care Provider] - ([facility])
--- NOTE | 2018-08-16 11:28 | Physician Discharge Referral ---
- Diagnosis (1) Severe sepsis Priority: Primary Status: Acute (2) C. difficile colitis Priority: Primary Status: Acute (3) Cirrhosis Priority: Primary Status: Chronic (4) CREST (calcinosis, Raynaud's phenomenon, esophageal dysfunction, sclerodactyly, telangiectasia) Priority: Primary Status: Chronic (5) CAD (coronary artery disease) Priority: Primary Status: Chronic (6) Acute on chronic kidney failure Priority: Primary Status: Acute (7) Hyponatremia Priority: Primary Status: Acute (8) Acute cystitis Priority: Primary Status: Acute - Transfer Medications Prescriptions: Lactobacillus [Culturelle] 2 each PO DAILY #30 cap.sprink Vancomycin Oral Soln [Firvanq] 125 mg PO QID 7 Days #28 udc Sodium Bicarbonate 650 mg PO TID #60 tablet Sodium Chloride [Sodium Chloride Tab] 1 gm PO TID #60 tablet Home Medications: Cevimeline HCl [Evoxac] 90 mg PO HS 01/02/15 [History] Doxepin HCl 30 mg PO HS 01/02/15 [History] Sildenafil Citrate [Revatio] 20 mg PO 3-4XD PRN 01/02/15 [History] Aspirin [Lo-Dose Aspirin EC] 81 mg PO 1200 08/08/18 [History] Atorvastatin [Lipitor] 40 mg PO 1200 08/08/18 [History] Calcium Carbonate/Vitamin D3 [Calcium 500 mg-Vit D3 600 Unit] 1 tab PO BID 08/08/18 [History] Ergocalciferol (VITAMIN D2) [Vitamin D2] 50,000 units PO MO 08/08/18 [History] Ferrous Sulfate 325 mg PO 1200 08/08/18 [History] Furosemide [Lasix] 40 mg PO QAM 08/08/18 [History] Lactulose [Enulose] 10 gm PO BID MDD 40GM 08/08/18 [History] Metoprolol Succinate [Toprol Xl] 50 mg PO BID 08/08/18 [History] Midodrine [ProAmatine] 5 mg PO TID 08/08/18 [History] Pantoprazole Sodium [Protonix] 40 mg PO QPM 08/08/18 [History] Rifaximin [Xifaxan] 550 mg PO BID 08/08/18 [History] Spironolactone [Aldactone] 25 mg PO 1200 08/08/18 [History] Tramadol HCl [Ultram] 50 mg PO Q8H PRN 08/08/18 [History] Lactobacillus [Culturelle] 2 each PO DAILY #30 cap.sprink 08/16/18 [Rx] Sodium Bicarbonate 650 mg PO TID #60 tablet 08/16/18 [Rx] Sodium Chloride [Sodium Chloride Tab] 1 gm PO TID #60 tablet 08/16/18 [Rx] Vancomycin Oral Soln [Firvanq] 125 mg PO QID 7 Days #28 udc 08/16/18 [Rx] Allergies/Adverse Reactions: Allergy/AdvReac Type Severity Reaction Status Date / Time codeine Allergy Mild Nausea Verified 08/08/18 16:46 - Respiratory Orders Smoking Cessation: Smoking cessation has been advised. For more information, call the [place] [employer] Quit Line at 4-652-REVW-NOW. - Rehabiliation Orders Rehab Orders: Evaluation for Physical Therapy CERTIFICATION: I certify that the transfer of the above named patient to an Extended Care Facility is necessary for the continuing treatment of the diagnosis listed. The above information is true and accurate reflection of patient's current condition. Confidential - Redisclosure prohibited without a patient's written consent.
[2018-08-16 11:43] VITALS: BP 125/71
== END 2018-08-16 14:10 | DRG 872 ==
LOC: 2NENU 11:44 → EMEROOARM 11:44 → SUATTDRO 15:32 → 2NNU 17:19
PROVIDERS: ADMIT Internal Medicine Nephrology; ATTEND Internal Medicine

== ENCOUNTER 2018-12-27 11:09 | Inpatient (IN) ==
[2018-12-27] MEDS ORDERED: Isovue-370 500 ML BOTTLE IVP ONE (11:32)
[2018-12-27 11:54] LABS: Basophils % 0.1 %; Eosinophils # 0.1 K/mcL (0.0-0.6); Hemoglobin 6.7 g/dL (11.5-15.4); Immature Granulocytes % 0.5 % (0-4); Lymphocytes % 12.4 %; Mean Corpuscular HGB Conc 31.9 g/dL (31.6-35.5); Mean Corpuscular Hemoglobin 32.7 pg (28.0-33.3); Mean Corpuscular Volume 102.4 fL (83.0-100.0); Mean Platelet Volume 11.3 fL (9.4-12.4); Monocytes # 1.1 K/mcL (0.0-1.3); Monocytes % 14.4 %; Neutrophils # 5.5 K/mcL (1.6-8.9); Platelet Count 120 K/mcL (140-400); Red Blood Count 2.05 M/mcL (3.82-4.97); Red Cell Distribution Width 17.9 % (11.5-14.5); Segmented Neutrophils % 71.6 %; White Blood Count 7.7 K/mcL (4.3-11.1)
[2018-12-27 11:59] LABS: INR 1.3; Prothrombin Time 14.8 Seconds (9.4-12.1)
[2018-12-27] MEDS ORDERED: 0.9 % Sodium Chloride 250 ML IVC SCH (12:00)
[2018-12-27 12:15] LABS: Albumin 2.2 g/dL (3.5-5.7); Albumin/Globulin Ratio 0.8 (1.1-2.2); Bilirubin,Total 0.7 mg/dL (0.3-1.0); Calcium 7.9 mg/dL (8.6-10.3); Globulin 2.9 g/dL (2.4-3.5); Magnesium 1.4 mg/dL (1.6-2.6); Total Protein 5.1 g/dL (6.4-8.9)
[2018-12-27] MEDS ORDERED: 0.9 % Sodium Chloride 500 ML ONE (12:59)
[2018-12-27] MEDS ORDERED: Ondansetron 4 MG/2 ML VIAL IVP PRN (14:40)
[2018-12-27] MEDS ORDERED: Naloxone 0.4 MG/ML INJ IVP PRN (14:40)
[2018-12-27] MEDS ORDERED: Pantoprazole 40 MG in 0.9 % Sodium Chloride Mini Bag 100 ML IVC SCH (14:45)
[2018-12-27] MEDS ORDERED: Octreotide 400 MCG in 0.9 % Sodium Chloride 100 ML IVC SCH (14:45)
[2018-12-27] MEDS ORDERED: Albumin 25% 25gram/100mL 25 GM/100 ML IV.SOLN IVPB ONE (15:02)
[2018-12-27] MEDS ORDERED: Acetaminophen 325 MG TABLET PO PRN (16:47)
[2018-12-27] MEDS ORDERED: SODIUM CHLORIDE/NAHCO3/KCL/PEG 4,000 ML SOLN.RECON PO ONE (17:00)
[2018-12-27] MEDS: traMADol 50 MG TABLET PO PRN (17:59)
[2018-12-27] MEDS: Octreotide 400 MCG in 0.9 % Sodium Chloride 100 ML IVC SCH (18:04)
[2018-12-27 18:14] LABS: Hematocrit 24.1 % (35.3-44.9); Hemoglobin 7.8 g/dL (11.5-15.4)
[2018-12-27] MEDS: Pantoprazole 40 MG VIAL IVP SCH (18:19)
[2018-12-27] MEDS ORDERED: 0.9 % Sodium Chloride 250 ML ONE (21:30)
[2018-12-28 01:03] LABS: Campylobacter by PCR Not detected (Not detect)
[2018-12-28 01:04] LABS: Adenovirus F 40/41 PCR Not detected (Not detect); Astrovirus PCR Not detected (Not detect); C.difficile Toxin A/B Gene PCR DETECTED (Not detect); Cryptosporidium by PCR Not detected (Not detect); Cyclospora cayetanensis PCR Not detected (Not detect); E. coli O157 by PCR Not detected (Not detect); Entamoeba histolytica PCR Not detected (Not detect); Enteroaggregative E.coli(EAEC) Not detected (Not detect); Enteropathogenic E.coli(EPEC) Not detected (Not detect); Enterotoxigenic E.coli (ETEC) Not detected (Not detect); Giardia lamblia PCR Not detected (Not detect); Norovirus GI/GII PCR Not detected (Not detect); Plesiomonas shigelloides PCR Not detected (Not detect); Rotavirus A PCR Not detected (Not detect); Salmonella PCR Not detected (Not detect); Sapovirus PCR Not detected (Not detect); Shig/EnteroinvasiveE coli EIEC Not detected (Not detect); Shigalike tox-prod E coli STEC Not detected (Not detect); Vibrio PCR Not detected (Not detect); Vibrio cholerae PCR Not detected (Not detect); Yersinia enterocolitica PCR Not detected (Not detect)
[2018-12-28 03:07] LABS: Eosinophils % 0.7 %; Red Cell Distribution Width 19.1 % (11.5-14.5)
[2018-12-28 03:09] LABS: Basophils % 0.3 %; Eosinophils # 0.1 K/mcL (0.0-0.6); Hematocrit 29.7 % (35.3-44.9); Hemoglobin 9.8 g/dL (11.5-15.4); INR 1.3; Immature Granulocytes % 0.7 % (0-4); Immature Platelets 4.8 % (1.1-6.1); Lymphocytes # 0.4 K/mcL (0.6-4.6); Lymphocytes % 5.6 %; Mean Corpuscular Hemoglobin 31.3 pg (28.0-33.3); Mean Corpuscular Volume 94.9 fL (83.0-100.0); Mean Platelet Volume 10.7 fL (9.4-12.4); Monocytes # 0.5 K/mcL (0.0-1.3); Monocytes % 6.9 %; Prothrombin Time 14.4 Seconds (9.4-12.1); Red Blood Count 3.13 M/mcL (3.82-4.97); Segmented Neutrophils % 85.8 %; White Blood Count 7.4 K/mcL (4.3-11.1)
[2018-12-28 03:10] LABS: Neutrophils # 6.4 K/mcL (1.6-8.9); Platelet Count 66 K/mcL (140-400)
[2018-12-28 03:12] LABS: Activated Partial Thrombo Time 30.7 Seconds (26.0-36.0)
[2018-12-28 03:25] LABS: Calcium 8.2 mg/dL (8.6-10.3); Potassium 3.7 mEq/L (3.5-5.1)
[2018-12-28 05:13] LABS: Hematocrit 27.8 % (35.3-44.9); Hemoglobin 9.4 g/dL (11.5-15.4)
[2018-12-28] MEDS: Pantoprazole 40 MG VIAL IVP SCH ×2 (05:30→16:58)
[2018-12-28] MEDS: Vancomycin Oral Soln 125 MG/2.5 ML UDC PO SCH ×5 (05:30→22:32)
[2018-12-28] MEDS: Octreotide 400 MCG in 0.9 % Sodium Chloride 100 ML IVC SCH (07:34)
[2018-12-28 08:54] LABS: Albumin 2.8 g/dL (3.5-5.7)
[2018-12-28] MEDS: cefTRIAXone 1,000 MG in Water for inj. (sterile) 10 ML IVP SCH (10:21)
[2018-12-28 12:25] LABS: Bilirubin,Urine Negative (Negative); Blood,Urine Large (Negative); Clarity,Urine Turbid (Clear); Color,Urine Dark Yellow (Yellow); Glucose,Urine (UA) Normal (Normal); Ketones,Urine Negative (Negative); Leukocyte Esterase,Urine Large (Negative); Nitrite,Urine Positive (Negative); Protein,Urine Trace mg/dL (Neg-Trace); Specific Gravity,Urine 1.017 (1.010-1.025); Urobilinogen,Urine Normal (Normal)
[2018-12-28 12:28] LABS: Bacteria,Urine Many per hpf (None-Few); Hyaline Casts,Urine None Seen per lpf (None-Few); Squamous Epithelial Cell,Urine Many per lpf (None-Few); WBC,Urine TNTC per hpf (0-3)
[2018-12-28 12:33] LABS: RBC,Peritoneal Fluid < 0.002 M/mcL
[2018-12-28 12:46] LABS: Appearance of Peritoneal Fl CLEAR (Clear)
[2018-12-28 13:01] LABS: Glucose,Peritoneal Fluid 116 mg/dL (No Ref Range); LDH,Peritoneal Fluid < 25 Units/L (No Ref Range); Total Protein,Peritoneal Fluid < 3.0 g/dL
[2018-12-28 13:28] LABS: Basophils,Peritoneal Fluid 0 %; Eosinophils,Peritoneal Fluid 0 %
[2018-12-28 14:16] LABS: Hematocrit 26.7 % (35.3-44.9); Hemoglobin 8.9 g/dL (11.5-15.4)
[2018-12-28] MEDS ORDERED: Propofol 500 MG/50 ML INFUS..BTL ONE (14:43)
[2018-12-28] MEDS: Albumin 25% 25gram/100mL 25 GM/100 ML IV.SOLN IVPB SCH (16:53)
[2018-12-29] MEDS: Pantoprazole 40 MG VIAL IVP SCH ×2 (06:44→17:13)
[2018-12-29 08:46] LABS: Hematocrit 24.7 % (35.3-44.9); Hemoglobin 8.2 g/dL (11.5-15.4); Immature Platelets 3.9 % (1.1-6.1); Mean Corpuscular HGB Conc 33.2 g/dL (31.6-35.5); Mean Corpuscular Hemoglobin 31.7 pg (28.0-33.3); Mean Corpuscular Volume 95.4 fL (83.0-100.0); Mean Platelet Volume 11.2 fL (9.4-12.4); Red Blood Count 2.59 M/mcL (3.82-4.97); Red Cell Distribution Width 19.4 % (11.5-14.5); White Blood Count 6.1 K/mcL (4.3-11.1)
[2018-12-29 08:48] LABS: Platelet Count 66 K/mcL (140-400)
[2018-12-29 08:52] LABS: Albumin 2.5 g/dL (3.5-5.7); Albumin/Globulin Ratio 1.1 (1.1-2.2); Bilirubin,Total 1.5 mg/dL (0.3-1.0); Calcium 7.7 mg/dL (8.6-10.3); Globulin 2.2 g/dL (2.4-3.5); Potassium 3.9 mEq/L (3.5-5.1); Total Protein 4.7 g/dL (6.4-8.9)
[2018-12-29 09:27] LABS: Eosinophils # 0.1 K/mcL (0.0-0.6); Lymphocytes # 0.8 K/mcL (0.6-4.6); Neutrophils # 4.2 K/mcL (1.6-8.9)
[2018-12-29 09:28] LABS: Anisocytosis 1+ (Not Present); Platelet Estimate Decreased (Normal)
[2018-12-29] MEDS: Albumin 25% 25gram/100mL 25 GM/100 ML IV.SOLN IVPB SCH (09:52)
[2018-12-29] MEDS: cefTRIAXone 1,000 MG in Water for inj. (sterile) 10 ML IVP SCH (09:52)
[2018-12-29] MEDS: Vancomycin Oral Soln 125 MG/2.5 ML UDC PO SCH ×4 (09:52→20:02)
[2018-12-29] MEDS: traMADol 50 MG TABLET PO PRN ×2 (10:04→22:14)
[2018-12-29] MEDS ORDERED: Ringers Solution, Lactated 1,000 ML IVC SCH (11:15)
[2018-12-29] MEDS ORDERED: Ringers Solution, Lactated 500 ML IVC SCH (12:45)
[2018-12-30] MEDS: traMADol 50 MG TABLET PO PRN (04:11)
[2018-12-30 05:19] LABS: Fluid Source for Albumin ASCITES
[2018-12-30 05:53] LABS: Calcium 7.7 mg/dL (8.6-10.3); Potassium 3.9 mEq/L (3.5-5.1)
[2018-12-30] MEDS: Pantoprazole 40 MG VIAL IVP SCH (06:23)
[2018-12-30 07:22] VITALS: BP 102/57
[2018-12-30] MEDS: Vancomycin Oral Soln 125 MG/2.5 ML UDC PO SCH (08:19)
[2018-12-30] MEDS: Albumin 25% 25gram/100mL 25 GM/100 ML IV.SOLN IVPB SCH (08:19)
== END 2018-12-30 11:25 | disposition home or self-care (01) | DRG 378 ==
LOC: EMEROOARM 11:09 → 2NNU 11:09 → SUATTDRO 14:25 → 2NNU 15:15
PROVIDERS: ADMIT Student in an Organized Health Care Education/Training Program; ATTEND Internal Medicine

== ENCOUNTER 2019-02-21 14:28 | Inpatient (IN) ==
[2019-02-21 16:57] LABS: Basophils % 0.2 %; Eosinophils # 0.2 K/mcL (0.0-0.6); Eosinophils % 3.7 %; Hematocrit 20.9 % (35.3-44.9); Hemoglobin 6.6 g/dL (11.5-15.4); Immature Granulocytes % 0.4 % (0-4); Lymphocytes # 0.7 K/mcL (0.6-4.6); Mean Corpuscular HGB Conc 31.6 g/dL (31.6-35.5); Mean Corpuscular Volume 104.5 fL (83.0-100.0); Mean Platelet Volume 11.8 fL (9.4-12.4); Monocytes # 0.6 K/mcL (0.0-1.3); Monocytes % 13.6 %; Red Cell Distribution Width 17.7 % (11.5-14.5); Segmented Neutrophils % 66.1 %; White Blood Count 4.6 K/mcL (4.3-11.1)
[2019-02-21 16:58] LABS: Platelet Count 84 K/mcL (140-400)
[2019-02-21 17:23] LABS: Calcium 8.2 mg/dL (8.6-10.3); Potassium 4.1 mEq/L (3.5-5.1)
[2019-02-21 18:06] LABS: INR 1.2; Prothrombin Time 13.9 Seconds (9.4-12.1)
[2019-02-21 18:13] LABS: Activated Partial Thrombo Time 20.4 Seconds (26.0-36.0)
[2019-02-21] MEDS ORDERED: 0.9 % Sodium Chloride 1,000 ML IVC ONE (18:37)
[2019-02-21] MEDS ORDERED: 0.9 % Sodium Chloride 500 ML ONE (20:27)
[2019-02-21] MEDS ORDERED: cefTRIAXone 1,000 MG in 0.9 % Sodium Chloride Mini Bag 100 ML IVPB ONE (23:18)
[2019-02-21] MEDS ORDERED: Naloxone 0.4 MG/ML INJ IVP PRN (23:24)
[2019-02-21] MEDS ORDERED: Calcium Gluconate 1gm/50mL 1 GM/50 ML BAG IVPB ONE (23:27)
[2019-02-22 00:58] LABS: Hematocrit 22.2 % (35.3-44.9); Hemoglobin 7.1 g/dL (11.5-15.4); Red Cell Distribution Width 18.4 % (11.5-14.5)
[2019-02-22 00:59] LABS: Basophils % 0.5 %; Eosinophils # 0.2 K/mcL (0.0-0.6); Eosinophils % 4.1 %; Immature Granulocytes % 0.3 % (0-4); Lymphocytes # 0.5 K/mcL (0.6-4.6); Lymphocytes % 13.5 %; Mean Corpuscular Hemoglobin 32.3 pg (28.0-33.3); Mean Corpuscular Volume 100.9 fL (83.0-100.0); Monocytes # 0.7 K/mcL (0.0-1.3); Monocytes % 17.1 %; Neutrophils # 2.5 K/mcL (1.6-8.9); Segmented Neutrophils % 64.5 %; White Blood Count 3.9 K/mcL (4.3-11.1)
[2019-02-22 01:00] LABS: Platelet Count 68 K/mcL (140-400)
[2019-02-22 05:07] LABS: Basophils % 0.2 %; Immature Granulocytes % 0.5 % (0-4); Red Cell Distribution Width 18.6 % (11.5-14.5)
[2019-02-22 05:09] LABS: Eosinophils # 0.2 K/mcL (0.0-0.6); Eosinophils % 4.4 %; Hematocrit 22.2 % (35.3-44.9); Lymphocytes # 0.6 K/mcL (0.6-4.6); Mean Corpuscular HGB Conc 31.5 g/dL (31.6-35.5); Mean Corpuscular Hemoglobin 32.7 pg (28.0-33.3); Mean Corpuscular Volume 103.7 fL (83.0-100.0); Mean Platelet Volume 11.4 fL (9.4-12.4); Monocytes # 0.6 K/mcL (0.0-1.3); Monocytes % 13.8 %; Neutrophils # 2.9 K/mcL (1.6-8.9); Platelet Count 73 K/mcL (140-400); Red Blood Count 2.14 M/mcL (3.82-4.97); Segmented Neutrophils % 67.1 %; White Blood Count 4.3 K/mcL (4.3-11.1)
[2019-02-22 05:31] LABS: Alanine Aminotransferase 6 Units/L (7-52); Albumin 2.1 g/dL (3.5-5.7); Albumin/Globulin Ratio 0.8 (1.1-2.2); Alkaline Phosphatase 92 Units/L (34-104); Aspartate Amino Transferase 15 Units/L (13-39); BUN/Creatinine Ratio 21 (6-26); Bilirubin,Total 1.6 mg/dL (0.3-1.0); Blood Urea Nitrogen 31 mg/dL (8-23); Calcium 7.9 mg/dL (8.6-10.3); Carbon Dioxide 24 mEq/L (23-29); Chloride 105 mEq/L (98-107); Chol/HDL Ratio 2.5 (0-4.9); Cholesterol 47 mg/dL (< 200); Globulin 2.8 g/dL (2.4-3.5); Glucose 91 mg/dL (70-105); HDL Cholesterol 19 mg/dL (40-59); LDL Cholesterol,Calculated 17 mg/dL (0-99); Magnesium 1.7 mg/dL (1.6-2.6); Osmolality,Calculated 290 (280-300); Phosphorous 3.9 mg/dL (2.7-4.5); Potassium 3.7 mEq/L (3.5-5.1); Sodium 137 mEq/L (136-145); Total Protein 4.9 g/dL (6.4-8.9); Triglycerides 57 mg/dL (< 150); Troponin I < 0.03 ng/mL (< 0.04); eGFR For African Americans 44 (> 60); eGFR For Non-African Americans 36 (> 60)
[2019-02-22] MEDS: Metoprolol XL (24 HR) Succ 50 MG TAB.ER.24H PO SCH ×2 (12:31→21:18)
[2019-02-22] MEDS: Aspirin Enteric Coated 81 MG Tablet PO SCH (12:31)
[2019-02-22] MEDS: Spironolactone 25 MG TABLET PO SCH (12:31)
[2019-02-22] MEDS: Furosemide 40 MG TABLET PO SCH (12:31)
[2019-02-22 13:31] LABS: Red Cell Distribution Width 18.9 % (11.5-14.5)
[2019-02-22 13:33] LABS: Basophils % 0.4 %; Eosinophils # 0.2 K/mcL (0.0-0.6); Eosinophils % 3.7 %; Hematocrit 26.8 % (35.3-44.9); Hemoglobin 8.7 g/dL (11.5-15.4); Immature Granulocytes % 0.6 % (0-4); Immature Platelets 4.4 % (1.1-6.1); Lymphocytes # 0.7 K/mcL (0.6-4.6); Lymphocytes % 12.7 %; Mean Corpuscular HGB Conc 32.5 g/dL (31.6-35.5); Mean Corpuscular Volume 101.5 fL (83.0-100.0); Mean Platelet Volume 11.5 fL (9.4-12.4); Monocytes # 0.7 K/mcL (0.0-1.3); Monocytes % 13.4 %; Neutrophils # 3.8 K/mcL (1.6-8.9); Platelet Count 79 K/mcL (140-400); Red Blood Count 2.64 M/mcL (3.82-4.97); Segmented Neutrophils % 69.2 %; White Blood Count 5.5 K/mcL (4.3-11.1)
[2019-02-22] MEDS ORDERED: 0.9 % Sodium Chloride 250 ML ONE (13:44)
[2019-02-22] MEDS: Sildenafil Citrate 20 MG TABLET PO SCH ×2 (16:49→21:18)
[2019-02-22] MEDS: cefTRIAXone 1,000 MG in Water for inj. (sterile) 10 ML IVP SCH (17:39)
[2019-02-23 04:18] LABS: Hematocrit 28.2 % (35.3-44.9); Hemoglobin 9.3 g/dL (11.5-15.4); Mean Corpuscular Hemoglobin 32.9 pg (28.0-33.3); Mean Corpuscular Volume 99.6 fL (83.0-100.0); Mean Platelet Volume 11.5 fL (9.4-12.4); Red Blood Count 2.83 M/mcL (3.82-4.97); White Blood Count 6.4 K/mcL (4.3-11.1)
[2019-02-23 04:20] LABS: INR 1.3; Prothrombin Time 14.3 Seconds (9.4-12.1)
[2019-02-23 04:33] LABS: Albumin 2.4 g/dL (3.5-5.7); Albumin/Globulin Ratio 0.8 (1.1-2.2); Bilirubin,Direct 0.6 mg/dL (0.0-0.2); Bilirubin,Indirect 1.6 mg/dL (0.0-1.0); Bilirubin,Total 2.2 mg/dL (0.3-1.0); Calcium 8.1 mg/dL (8.6-10.3); Globulin 3.2 g/dL (2.4-3.5); Magnesium 1.5 mg/dL (1.6-2.6); Potassium 3.9 mEq/L (3.5-5.1); Total Protein 5.6 g/dL (6.4-8.9)
[2019-02-23] MEDS: Metoprolol XL (24 HR) Succ 50 MG TAB.ER.24H PO SCH ×2 (11:19→22:42)
[2019-02-23] MEDS: Furosemide 40 MG TABLET PO SCH (11:22)
[2019-02-23] MEDS: Spironolactone 25 MG TABLET PO SCH (11:22)
[2019-02-23] MEDS: Aspirin Enteric Coated 81 MG Tablet PO SCH (11:23)
[2019-02-23] MEDS: cefTRIAXone 1,000 MG in Water for inj. (sterile) 10 ML IVP SCH (11:35)
[2019-02-23] MEDS: Sildenafil Citrate 20 MG TABLET PO SCH ×3 (11:35→22:42)
[2019-02-23 11:58] LABS: RBC,Peritoneal Fluid < 0.002 M/mcL
[2019-02-23 12:12] LABS: Glucose,Peritoneal Fluid 107 mg/dL (No Ref Range); Total Protein,Peritoneal Fluid < 3.0 g/dL
[2019-02-23] MEDS ORDERED: Propofol 500 MG/50 ML INFUS..BTL ONE (15:06)
[2019-02-23] MEDS ORDERED: Lidocaine -MPF 2% 2 ML VIAL ONE (15:06)
[2019-02-23] MEDS ORDERED: *HR* PHENYLEPHRINE 1,000 MCG/10 ML SYRINGE IVP ONE (15:07)
[2019-02-23 15:22] LABS: Appearance of Peritoneal Fl CLEAR (Clear)
[2019-02-24 04:31] LABS: INR 1.3; Prothrombin Time 14.9 Seconds (9.4-12.1)
[2019-02-24 04:33] LABS: Hematocrit 28.4 % (35.3-44.9); Hemoglobin 9.1 g/dL (11.5-15.4); Mean Corpuscular Hemoglobin 31.7 pg (28.0-33.3); Mean Platelet Volume 11.8 fL (9.4-12.4); Platelet Count 101 K/mcL (140-400); Red Blood Count 2.87 M/mcL (3.82-4.97); Red Cell Distribution Width 18.1 % (11.5-14.5); White Blood Count 6.3 K/mcL (4.3-11.1)
[2019-02-24 04:49] LABS: Albumin 2.2 g/dL (3.5-5.7); Albumin/Globulin Ratio 0.7 (1.1-2.2); Bilirubin,Direct 0.3 mg/dL (0.0-0.2); Bilirubin,Indirect 0.9 mg/dL (0.0-1.0); Bilirubin,Total 1.2 mg/dL (0.3-1.0); Calcium 7.5 mg/dL (8.6-10.3); Globulin 3.1 g/dL (2.4-3.5); Potassium 3.9 mEq/L (3.5-5.1); Total Protein 5.3 g/dL (6.4-8.9)
[2019-02-24 07:13] VITALS: BP 100/45
== END 2019-02-24 10:17 | disposition home or self-care (01) | DRG 394 ==
LOC: 3ANU 14:28 → EMEROOARM 14:28 → SUATTDRO 20:25 → 3ANU 21:29
PROVIDERS: ADMIT Family Medicine; ATTEND Internal Medicine
PROC: ENDOCCB (2019-02-23 13:00)